=== PATIENT | female | born 1960 | race Caucasian/White ===

== ENCOUNTER 2018-08-21 17:39 | Emergency (ER) | payer OTHER, BC ==
[~2018-08-21] VITALS: Ht 165.1 cm; Wt 70.3 kg
[~2018-08-21 17:39] MED LIST: LEVO50TA PO; NFNEB10T PO; RABE20TA PO; SIMV40TA2 PO; SRTR100T PO
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
--- NOTE | 2018-08-21 18:36 | NUR ---
ICE PACKS ARE PLACE ON THE LOWER LEGS.
[2018-08-21 18:37] VITALS: BP 102/64
--- OUTSIDE RECORDS SUMMARY | 2018-08-22 00:13 | XMS REPORT | Continuity of Care Document ---
Author Author [facility] Organization [facility] Address Unknown Phone Unavailable Care Team Providers Care Manager Quality Systems Name Role Phone CASEY DAHL MD PP Insurance Providers Payer Name Policy Number Subscriber Name Relationship R [id number] Gracie Gonzalez 01 Self / Same As Patient Advance Directives Directive Response Recorded Date Advance Directives Y 12/18/12 7:07pm Health Care Power of Gas Pumper Y 12/18/12 7:07pm Organ Donor N 12/18/12 7:07pm Problems No Known Problems or Medical conditions. Allergies, Adverse Reactions, Alerts Allergen Type Severity Reaction Last Updated dexamethasone Allergy Intermediate SWELLING 10/19/09 Medications Medication Dose Units Route Sig Qty Days Sertraline HCl (Zoloft) 100 Mg PO DAILY Rabeprazole Sodium (Aciphex) 20 Mg PO Nebivolol Hcl (Bystolic) 1 Each PO DAILY Levothyroxine Sodium (Unithroid) 50 Mcg PO Simvastatin (Zocor) 1 Tab PO DAILY Response Recorded Date/Time Status not known Unknown Results Test Date Result Interp. Ref. Range BUN/Creatinine Ratio October 19, 2009 11:40pm 15 - Basophils # (Auto) October 19, 2009 11:40pm 0.0 10^3/uL N 0.0-0.1 Basophils (%) (Auto) October 19, 2009 11:40pm 0 % N 0-10 Blood Urea Nitrogen October 19, 2009 11:40pm 12 MG/DL N 7-18 Calcium Level October 19, 2009 11:40pm 9.3 MG/DL N 8.5-10.1 Carbon Dioxide Level October 19, 2009 11:40pm 26 MMOL/L N 21-32 Chloride Level October 19, 2009 11:40pm 101 MMOL/L N 101-110 Creatinine October 19, 2009 11:40pm 0.8 MG/DL N 0.6-1.3 Eosinophils # (Auto) October 19, 2009 11:40pm 0.0 10^3/uL N 0.0-0.3 Eosinophils (%) (Auto) October 19, 2009 11:40pm 0 % N 0-10 Glucose Level October 19, 2009 11:40pm 147 MG/DL H 70-126 Hematocrit October 19, 2009 11:40pm 41 % N 35-52 Hemoglobin October 19, 2009 11:40pm 14.3 G/DL N 11.5-16.0 Lymphocytes # (Auto) October 19, 2009 11:40pm 1.5 X 10^3 N 1.0-4.0 Lymphocytes (%) (Auto) October 19, 2009 11:40pm 12 % N 12-44 Mean Corpuscular Hemoglobin October 19, 2009 11:40pm 34 PG N 25-34 Mean Corpuscular Hemoglobin Concent October 19, 2009 11:40pm 35 G/DL N 32-36 Mean Corpuscular Volume October 19, 2009 11:40pm 97 FL N 80-99 Mean Platelet Volume October 19, 2009 11:40pm 9.3 FL N 7.4-10.4 Monocytes # (Auto) October 19, 2009 11:40pm 0.7 X 10^3 N 0.0-1.0 Monocytes (%) (Auto) October 19, 2009 11:40pm 6 % N 0-12 Neutrophils # (Auto) October 19, 2009 11:40pm 9.6 X 10^3 H 1.8-7.8 Neutrophils (%) (Auto) October 19, 2009 11:40pm 81 % H 42-75 Platelet Count October 19, 2009 11:40pm 265 10^3/uL N 130-400 Potassium Level October 19, 2009 11:40pm 3.3 MMOL/L L 3.6-5.0 Red Blood Count October 19, 2009 11:40pm 4.22 10^6/uL L 4.35-5.85 Red Cell Distribution Width October 19, 2009 11:40pm 12.8 % N 10.0-14.5 Sodium Level October 19, 2009 11:40pm 136 MMOL/L N 135-145 Urine Bacteria October 20, 2009 12:28am MODERATE H - Urine Bilirubin October 20, 2009 12:28am NEGATIVE - Urine Casts October 20, 2009 12:28am NONE - Urine Clarity October 20, 2009 12:28am SLIGHTLY CLOUDY - Urine Color October 20, 2009 12:28am YELLOW - Urine Crystals October 20, 2009 12:28am NONE - Urine Culture Indicated October 20, 2009 12:28am YES - Urine Glucose (UA) October 20, 2009 12:28am NEGATIVE - Urine Ketones October 20, 2009 12:28am 3+ H - Urine Leukocyte Esterase October 20, 2009 12:28am 2+ H - Urine Mucus October 20, 2009 12:28am LARGE H - Urine Nitrite October 20, 2009 12:28am NEGATIVE - Urine Protein October 20, 2009 12:28am TRACE - Urine RBC October 20, 2009 12:28am RARE /HPF - Urine Specific [place] October 20, 2009 12:28am 1.025 H - Urine Squamous Epithelial Cells October 20, 2009 12:28am 5-10 - Urine Urobilinogen October 20, 2009 12:28am NORMAL MG/DL - Urine WBC October 20, 2009 12:28am 10-25 /HPF H - Urine pH October 20, 2009 12:28am 5.0 - White Blood Count October 19, 2009 11:40pm 11.8 10^3/uL H 4.3-11.0 Estimat Glomerular Filtration Rate October 19, 2009 11:40pm > 60 - Urine RBC (Auto) October 20, 2009 12:28am NEGATIVE - Procedures Procedure Code Date Urine Culture 10/20/09 Encounters Encounter Location Date/Time Departed Emergency Room [facility] 10/19/09 10:25pm
--- OUTSIDE RECORDS SUMMARY | 2018-08-22 00:13 | XMS REPORT | Continuity of Care Document ---
Author Organization Unknown Address Unknown Allergies Active Description Code Type Severity Reaction Onset Reported/Identified Relationship to Patient Clinical Status Yes DECADRON UNKNOWN UNKNOWN Medications There is no data. Problems Date Dx Coded Attending Type Code Diagnosis Diagnosed By 12/30/2016 CONCETTA MUÑOZ 454.8 VARICOSE VEINS OF THE LOWER EXTREMITIES, WITH OTHER COMPLICATIONS 12/30/2016 CONCETTA MUÑOZ I83.891 VARICOSE VEINS OF RIGHT LOWER EXTREMITIES WITH OTHER COMPLICATIONS 12/30/2016 CONCETTA MUÑOZ 454.8 VARICOSE VEINS OF THE LOWER EXTREMITIES, WITH OTHER COMPLICATIONS 12/30/2016 CONCETTA MUÑOZ I83.891 VARICOSE VEINS OF RIGHT LOWER EXTREMITIES WITH OTHER COMPLICATIONS 03/02/2017 CONCETTA MUÑOZ W 244.9 UNSPECIFIED HYPOTHYROIDISM 03/02/2017 ROSCOE MUÑOZHEL W E03.9 HYPOTHYROIDISM, UNSPECIFIED 03/02/2017 WANDA CONCETTA W 244.9 UNSPECIFIED HYPOTHYROIDISM 03/02/2017 WANDA CONCETTA W E03.9 HYPOTHYROIDISM, UNSPECIFIED 11/27/2017 ROSCOE MUÑOZHEL W 401.0 MALIGNANT ESSENTIAL HYPERTENSION 11/27/2017 ROSCOE MUÑOZHEL W I10 ESSENTIAL (PRIMARY) HYPERTENSION 11/27/2017 CONCETTA MUÑOZ W 272.4 OTHER AND UNSPECIFIED HYPERLIPIDEMIA 11/27/2017 CONCETTA MUÑOZ W 401.0 MALIGNANT ESSENTIAL HYPERTENSION 11/27/2017 ROSCOE MUÑOZHEL W E78.5 HYPERLIPIDEMIA, UNSPECIFIED 11/27/2017 MUÑOZ, CONCETTA W I10 ESSENTIAL (PRIMARY) HYPERTENSION 11/27/2017 CONCETTA MUÑOZ W 272.4 OTHER AND UNSPECIFIED HYPERLIPIDEMIA 11/27/2017 CONCETTA MUÑOZ W 401.0 MALIGNANT ESSENTIAL HYPERTENSION 11/27/2017 WANDA CONCETTA W E78.5 HYPERLIPIDEMIA, UNSPECIFIED 11/27/2017 ROSCOE MUÑOZHEL W I10 ESSENTIAL (PRIMARY) HYPERTENSION 04/05/2018 CONCETTA MUÑOZ W 244.9 UNSPECIFIED HYPOTHYROIDISM 04/05/2018 CONCETTA MUÑOZ 272.4 OTHER AND UNSPECIFIED HYPERLIPIDEMIA 04/05/2018 CONCETTA MUÑOZ E03.9 HYPOTHYROIDISM, UNSPECIFIED 04/05/2018 CONCETTA MUÑOZ E78.5 HYPERLIPIDEMIA, UNSPECIFIED 04/05/2018 CONCETTA MUÑOZ W 244.9 UNSPECIFIED HYPOTHYROIDISM 04/05/2018 CONCETTA UMÑOZ 272.4 OTHER AND UNSPECIFIED HYPERLIPIDEMIA 04/05/2018 CONCETTA MUÑOZ E03.9 HYPOTHYROIDISM, UNSPECIFIED 04/05/2018 CONCETTA MUÑOZ E78.5 HYPERLIPIDEMIA, UNSPECIFIED Procedures There is no data. Results Test Result Range Comprehensive Metabolic Panel - 09/13/16 17:15 Albumin 4.2 g/dL 3.6-5.1 ALP 124 U/L 35-130 ALT 17 U/L 6-45 Anion Gap 15 6-14 AST 19 U/L 2-40 BUN 16 mg/dL 5-25 Calcium 9.5 mg/dL 8.3-10.4 Chloride 104 mmol/L 95-114 CO2 22 mEq/L 22-33 Creat 0.76 mg/dL 0.50-1.50 eGFR 78 mL/min/1.73m2 >59 Globulin 2.2 g/dL 2.3-3.5 Glucose 107 mg/dL 70-110 Osmo 285 280-295 Potassium 4.3 mmol/L 3.5-5.3 Sodium 137 mmol/L 134-148 TBil 0.3 mg/dL 0.2-1.2 TP 6.4 g/dL 6.0-8.3 Lipid Panel - 09/13/16 17:15 C/HDL 3.9 3.7-6.7 Cholesterol 208 mg/dL 100-240 HDL 53 mg/dL 30-85 LDL-Calculated 131 mg/dL 0-100 Trig 122 mg/dL 35-160 VLDL 24 mg/dL 0-42 Thyroid Stimulating Hormone - 03/01/17 15:25 TSH 1.51 mIU/mL 0.32-5.00 Lipid Panel - 11/27/17 15:41 C/HDL 7.1 3.7-6.7 Cholesterol 340 mg/dL 100-240 HDL 48 mg/dL 30-85 LDL-Calculated 274 mg/dL 0-100 Trig 91 mg/dL 35-160 VLDL 18 mg/dL 0-42 Thyroid Stimulating Hormone - 04/05/18 17:29 TSH 1.34 mIU/mL 0.32-5.00 Comprehensive Metabolic Panel - 08/06/18 13:08 Albumin 4.1 g/dL 3.6-5.1 ALP 140 U/L 35-130 ALT 15 U/L 6-45 Anion Gap 14 6-14 AST 17 U/L 2-40 BUN 10 mg/dL 5-25 Calcium 9.8 mg/dL 8.3-10.4 Chloride 108 mmol/L 95-114 CO2 23 mEq/L 22-33 Creat 0.78 mg/dL 0.50-1.50 eGFR 75 mL/min/1.73m2 >59 Globulin 2.0 g/dL 2.3-3.5 Glucose 99 mg/dL 70-110 Osmo 290 280-295 Potassium 4.2 mmol/L 3.5-5.3 Sodium 141 mmol/L 134-148 TBil 0.3 mg/dL 0.2-1.2 TP 6.1 g/dL 6.0-8.3 Encounters ACCT No. Visit Date/Time Discharge Status Pt. Type Provider Facility Loc./Unit Complaint [id number] 08/06/2018 10:27:00 08/06/2018 23:59:00 DIS Outpatient Juani Damon [id number] 04/05/2018 17:27:00 04/05/2018 23:59:00 DIS Outpatient CONCETTA MUÑOZ [id number] 11/27/2017 15:41:00 11/27/2017 23:59:00 DIS Outpatient CONCETTA MUÑOZ [id number] 03/02/2017 15:25:00 03/02/2017 23:59:00 DIS Outpatient CONCETTA MUÑOZ [id number] 12/30/2016 14:37:00 12/30/2016 23:59:00 DIS Outpatient CONCETTA MUÑOZ [id number] 09/13/2016 19:34:00 09/13/2016 23:59:00 DIS Outpatient CONCETTA MUÑOZ [id number] 02/06/2013 09:57:00 02/06/2013 23:59:59 CLS Outpatient [id number] 01/14/2013 13:33:00 01/14/2013 23:59:59 CLS Outpatient [id number] 12/18/2012 14:35:00 12/18/2012 19:27:00 DIS Outpatient [id number] 08/06/2018 10:27:00 Document Registration
== END 2018-08-21 18:39 | disposition home or self-care (01) ==
LOC: EDUNIT# 17:39 → ER 17:40
DX: S80.11XA Contusion of right lower leg, initial encounter (principal); S80.12XA Contusion of left lower leg, initial encounter; Z88.8 Allergy status to other drugs, medicaments and biological substances; V49.40XA Driver injured in collision with unspecified motor vehicles in traffic accident, initial encounter
CPT/HCPCS: 99283

== ENCOUNTER 2018-08-28 16:26 | Emergency (ER) | payer OTHER, BC ==
[~2018-08-28] VITALS: Ht 165.1 cm; Wt 72.6 kg
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
[2018-08-28 18:30] VITALS: BP 106/70
== END 2018-08-28 18:30 | disposition home or self-care (01) ==
LOC: EDUNIT# 16:26 → ER 16:28
DX: M25.571 Pain in right ankle and joints of right foot (principal); E78.00 Pure hypercholesterolemia, unspecified; I10 Essential (primary) hypertension; E03.9 Hypothyroidism, unspecified; F17.210 Nicotine dependence, cigarettes, uncomplicated; Z88.8 Allergy status to other drugs, medicaments and biological substances; Z98.890 Other specified postprocedural states; V89.2XXA Person injured in unspecified motor-vehicle accident, traffic, initial encounter
CPT/HCPCS: 73610; 99283

== ENCOUNTER 2021-09-22 15:37 | Emergency (ER) | payer BC, OTHER ==
[~2021-09-22] VITALS: Ht 165 cm; Wt 63.0 kg
[2021-09-22 15:55] VITALS: BP_SYST 112; BP_SYST 94; BP_SYST 95; BP_DIAS 64; BP_DIAS 65; BP_DIAS 69
--- NOTE | 2021-09-22 15:59 | ED Syncope ---
General Chief Complaint: Dizziness/Syncope Stated Complaint: WEAKNESS Source of Information: Patient Exam Limitations: No Limitations History of Present Illness Date Seen by Provider: Sep 22, 2021 Time Seen by Provider: 15:36 Initial Comments Patient to the ER by EMS from home where her roommate said that she had 4 episodes of passing out and falling. She does not take blood thinner. She is had nausea vomiting diarrhea for the past 3 to 4 days. No runny nose cough shortness of air chest pain. She recently finished a course of valacyclovir for right inguinal zoster. She says that is getting better. She did not do steroids. She has had 2 COVID vaccines both Moderna. Allergies and Home Medications Allergies Coded Allergies: dexamethasone (Unverified Allergy, Intermediate, SWELLING, 10/19/09) Patient Home Medication List Home Medication List Reviewed: Yes Levothyroxine Sodium (Unithroid) 50 Mcg Tablet, 50 MCG PO, (Reported) Entered as Reported by: ANTHONY GARZA on 10/19/092232 Nebivolol Hcl (Bystolic) 10 Mg Tablet, 1 EACH PO DAILY, (Reported) Entered as Reported by: ANTHONY GARZA on 10/19/092232 Rabeprazole Sodium (Aciphex) 20 Mg Tablet.dr, 20 MG PO, (Reported) Entered as Reported by: ANTHONY GARZA on 10/19/092232 Sertraline Hcl (Zoloft) 100 Mg Tab, 100 MG PO DAILY, (Reported) Entered as Reported by: ANTHONY GARZA on 10/19/092232 Simvastatin (Zocor) 40 Mg Tablet, 1 TAB PO DAILY, (Reported) Entered as Reported by: ANTHONY GARZA on 10/19/092232 Review of Systems Constitutional: No chills, No diaphoresis EENTM: No ear discharge, No ear pain, No blurred vision Respiratory: No cough, No short of breath Cardiovascular: No chest pain, No edema Gastrointestinal: see HPI; No constipation; diarrhea, loss of appetite, nausea, vomiting Genitourinary: No discharge, No dysuria Musculoskeletal: No back pain, No joint pain Skin: see HPI; No change in color; lesions All Other Systems Reviewed Negative Unless Noted: Yes Past Opvimhr-Bkagzj-Ghxodx Hx Patient Social History Tobacco Use?: Yes Tobacco type used: Cigarettes Smoking Status: Current Everyday Smoker (Three-quarter pack per day) Use of E-Cig and/or Vaping dev: No Substance use?: No Alcohol Use?: No Seasonal Allergies Seasonal Allergies: No Past Medical History Surgeries: Yes (oral) Gallbladder, Orthopedic Respiratory: No Cardiac: Yes High Cholesterol, Hypertension Neurological: No Genitourinary: No Gastrointestinal: No Musculoskeletal: No Endocrine: Yes Hypothyroidsim HEENT: Yes Cataract, Glaucoma Cancer: No Psychosocial: No Physical Exam Vital Signs Vital Signs - First Documented 09/22/21 15:40 Temp 36.6 Pulse 86 Resp 18 B/P (MAP) 101/71 (81) Pulse Ox 94 Capillary Refill : Height, Weight, BMI Height: 5'5.00" Weight: 160lbs. oz. 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 Norm as Tested Cranial Nerves: Normal Hearing, Normal Speech, PERRL Motor/Sensory: No Motor Deficit, No Sensory Deficit Skin: Normal Color, Warm/Dry Progress/Results/Core Measures Results/Orders Lab Results Laboratory Tests Test 09/22/21 15:48 09/22/21 16:00 Range/Units White Blood Count 12.6 H 4.3-11.0 10^3/uL Red Blood Count 4.76 3.80-5.11 10^6/uL Hemoglobin 14.3 11.5-16.0 g/dL Hematocrit 42 35-52 % Mean Corpuscular Volume 89 80-99 fL Mean Corpuscular Hemoglobin 30 25-34 pg Mean Corpuscular Hemoglobin Concent 34 32-36 g/dL Red Cell Distribution Width 14.3 10.0-14.5 % Platelet Count 342 130-400 10^3/uL Mean Platelet Volume 9.3 9.0-12.2 fL Immature Granulocyte % (Auto) 0 % Neutrophils (%) (Auto) 47 42-75 % Lymphocytes (%) (Auto) 40 12-44 % Monocytes (%) (Auto) 11 0-12 % Eosinophils (%) (Auto) 1 0-10 % Basophils (%) (Auto) 1 0-10 % Neutrophils # (Auto) 6.0 1.8-7.8 10^3/uL Lymphocytes # (Auto) 5.1 H 1.0-4.0 10^3/uL Monocytes # (Auto) 1.4 H 0.0-1.0 10^3/uL Eosinophils # (Auto) 0.1 0.0-0.3 10^3/uL Basophils # (Auto) 0.1 0.0-0.1 10^3/uL Immature Granulocyte # (Auto) 0.0 0.0-0.1 10^3/uL Sodium Level 135 135-145 MMOL/L Potassium Level 3.1 L 3.6-5.0 MMOL/L Chloride Level 101 98-107 MMOL/L Carbon Dioxide Level 24 21-32 MMOL/L Anion Gap 10 5-14 MMOL/L Blood Urea Nitrogen 13 7-18 MG/DL Creatinine 0.87 0.60-1.30 MG/DL Estimat Glomerular Filtration Rate 75 BUN/Creatinine Ratio 15 Glucose Level 101 70-105 MG/DL Calcium Level 8.6 8.5-10.1 MG/DL Corrected Calcium 8.8 8.5-10.1 MG/DL Magnesium Level 1.6 1.6-2.4 MG/DL Total Bilirubin 0.6 0.1-1.0 MG/DL Aspartate Amino Transf (AST/SGOT) 14 5-34 U/L Alanine Aminotransferase (ALT/SGPT) 11 0-55 U/L Alkaline Phosphatase 85 40-136 U/L Troponin I < 0.028 <0.028 NG/ML C-Reactive Protein High Sensitivity 0.16 0.00-0.50 MG/DL Total Protein 6.0 L 6.4-8.2 GM/DL Albumin 3.8 3.2-4.5 GM/DL SARS-CoV-2 RNA (RT-PCR) Not Detected Not Detecte Urine Color YELLOW Urine Clarity CLEAR Urine pH 7.0 5-9 Urine Specific [place] <=1.005 1.016-1.022 Urine Protein NEGATIVE NEGATIVE Urine Glucose (UA) NEGATIVE NEGATIVE Urine Ketones NEGATIVE NEGATIVE Urine Nitrite NEGATIVE NEGATIVE Urine Bilirubin NEGATIVE NEGATIVE Urine Urobilinogen 0.2 < = 1.0 MG/DL Urine Leukocyte Esterase 1+ H NEGATIVE Urine RBC (Auto) TRACE-I H NEGATIVE Urine RBC NONE /HPF Urine WBC 25-50 H /HPF Urine Squamous Epithelial Cells 5-10 /HPF Urine Crystals NONE /LPF Urine Bacteria MODERATE H /HPF Urine Casts NONE /LPF Urine Mucus NEGATIVE /LPF Urine Culture Indicated YES My Orders Orders - SHARYN DAVIS Covid 19 Inhouse Test (09/22/21 15:48) Cbc With Automated Diff (09/22/21 15:48) Comprehensive Metabolic Panel (09/22/21 15:48) Hs C Reactive Protein (09/22/21 15:48) Continuous Ekg Monitoring (09/22/21 15:48) Ekg Tracing (09/22/21 15:48) Ua Culture If Indicated (09/22/21 15:52) Troponin I Marleni (09/22/21 15:52) Ed Iv/Invasive Line Start (09/22/21 15:52) Orthostatic Vital Signs (Adult (09/22/21 15:52) Chest 1 View, Ap/Pa Only (09/22/21 15:52) Magnesium (09/22/21 15:52) Ct Head/Cervical Spine Wo (09/22/21 16:00) Urine Culture (09/22/21 16:00) Ed Iv/Invasive Line Start (09/22/21 17:13) Ns Iv 1000 Ml (Sodium Chloride 0.9%) (09/22/21 17:15) Vital Signs/I&O 09/22/21 09/22/21 15:40 15:55 Temp 36.6 Pulse 86 78 84 94 Resp 18 B/P (MAP) 101/71 (81) 112/69 (83) 95/65 (75) 94/64 (74) Pulse Ox 94 Progress Progress Note #1: Time: 15:55 Progress Note Swab for COVID, EKG, orthostats, chest x-ray, labs including troponin for syncopal work-up. No history of coronary disease. We will let her continue to get the liter of fluids. Her blood pressure on arrival is soft 101 systolic. She is not tachycardic or febrile. Otherwise aseptic vital signs. Suspect dehydration from likely a viral gastroenteritis/colitis. Soft nonsurgical abdomen on exam. Progress Note #2: Time: 17:45 Progress Note Orthostats were borderline when she arrived. After her fluids she is feeling significantly better ready to go home. I suspect that her GI gut bug is the source of her dehydration and syncope. Return precautions given. Initial ECG Impression Date: Sep 22, 2021 Initial ECG Impression Time: 15:54 Initial ECG Rate: 78 Initial ECG Rhythm: Normal Sinus Initial ECG Intervals: Normal Initial ECG Impression: Normal Comment Normal sinus rhythm without clinically relevant ST elevation or depression Diagnostic Imaging Diagonstic Imaging: Xray Plain Films/CT/US/NM/MRI: chest Comments [facility], [place] NAME: DURANT,GRACIE A MED REC#: [id number] PT STATUS: REG ER : 1960 PHYSICIAN: SHARYN DAVIS MD ADMIT DATE: 09/22/21/ER Signed Date of Exam:09/22/21 CHEST 1 VIEW, AP/PA ONLY CHEST 1 VIEW, AP/PA ONLY Indication: Syncope Comparison: None available. Findings: Calcified right hilar and upper lobe nodules are compatible with old granulomatous infection. No consolidation. Please note that the posterior lower lobes are poorly evaluated by portable radiography. No pleural effusion or pneumothorax. Normal cardiomediastinal silhouette. Impression: 1. No acute cardiopulmonary process by portable radiography. 2. Old granulomatous infection. Dictated by: Dictated on workstation # [id number] Dict: 09/22/21 1644 Trans: 09/22/21 1645 [facility] [id number] Interpreted by: BROOKLYNN CARBALLO MD Electronically signed by: BROOKLYNN CARBALLO MD 09/22/21 1645 Reviewed: Reviewed by Me Diagonstic Imaging: CT Plain Films/CT/US/NM/MRI: c-spine, head Comments [facility] [place] [place] NAME: DURANT,GRACIE A MED REC#: [id number] PT STATUS: REG ER : 1960 PHYSICIAN: SHARYN DAVIS MD ADMIT DATE: 09/22/21/ER Draft Date of Exam:09/22/21 CT HEAD/CERVICAL SPINE WO PROCEDURE: CT head and CT cervical spine without contrast. TECHNIQUE: Multiple contiguous axial images were obtained through the brain and cervical spine without the use of intravenous contrast. Sagittal and coronal reformations through the cervical spine were then performed. Auto Exposure Controls were utilized during the CT exam to meet ALARA standards for radiation dose reduction. INDICATION: Head and neck pain after injury. COMPARISON: None available. FINDINGS: HEAD: No intracranial hyperdense hemorrhage or space-occupying mass. No hydrocephalus or midline shift. Melgar-white matter differentiation is well preserved. Periventricular hypoattenuation is most compatible with chronic microvascular ischemic change. No skull fracture. The paranasal sinuses and mastoid air cells are clear. CERVICAL SPINE: No acute fracture or traumatic malalignment. No high-grade spinal canal stenosis. Multilevel facet osteoarthritis contributes to varying degrees of wyog-is-kowmiwyz neuroforaminal stenosis, greatest at C5-C6. Lung apices are clear. No cervical lymphadenopathy. IMPRESSION: 1. No acute intracranial process by CT. 2. No fracture or traumatic malalignment in the cervical spine. Dictated on workstation # [id number] Dict: 09/22/21 1645 Trans: 09/22/21 1650 [id number] Interpreted by: BROOKLYNN CARBALLO MD Electronically signed by: Reviewed: Reviewed by Me Departure Impression Primary Impression: Syncope Qualified Codes: R55 - Syncope and collapse Additional Impressions: Dehydration Gastroenteritis and colitis, viral Disposition: 01 HOME, SELF-CARE Condition: Improved Departure-Patient Inst. Decision time for Depature: 17:46 Referrals: CONCETTA MUÑOZ MD (PCP/Family) Primary Care Physician Patient Instructions: Dehydration, Adult ED, Viral Gastroenteritis, Adult (DC) Add. Discharge Instructions: Drink plenty of fluids. Sports drinks are encouraged such as Gatorade or Powerade. Ondansetron 1 tablet every 6 hours under the tongue as necessary for nausea or vomiting. Imodium 2 tablets followed by 1 tablet every 4 hours afterwards that you are s till having loose, watery stools. Return to the ER for significantly worsening symptoms. Follow-up with your primary care doctor if you have nausea vomiting or diarrhea lasting more than 10 days. All discharge instructions reviewed with patient and/or family. Voiced understanding. Scripts Ondansetron (Ondansetron Odt) 4 Mg Tab.rapdis 4 MG PO Q6H PRN for NAUSEA/VOMITING, #8 TAB 0 Refills Prov: SHARYN DAVIS 09/22/21 SHARYN DAVIS Sep 22, 2021 15:59
[2021-09-22 16:02] LABS: BASOPHILS # (AUTO) 0.1 10^3/uL (0.0-0.1); BASOPHILS % (AUTO) 1 % (0-10); EOSINOPHILS # (AUTO) 0.1 10^3/uL (0.0-0.3); EOSINOPHILS % (AUTO) 1 % (0-10); HEMATOCRIT 42 % (35-52); HEMOGLOBIN 14.3 g/dL (11.5-16.0); LYMPHOCYTES # (AUTO) 5.1 10^3/uL (1.0-4.0); LYMPHOCYTES % (AUTO) 40 % (12-44); MEAN CORPUSCULAR HEMOGLOBIN 30 pg (25-34); MEAN CORPUSCULAR HGB CONC 34 g/dL (32-36); MEAN CORPUSCULAR VOLUME 89 fL (80-99); MEAN PLATELET VOLUME 9.3 fL (9.0-12.2); MONOCYTES # (AUTO) 1.4 10^3/uL (0.0-1.0); MONOCYTES % (AUTO) 11 % (0-12); NEUTROPHILS % (AUTO) 47 % (42-75); PLATELET COUNT 342 10^3/uL (130-400); WHITE BLOOD COUNT 12.6 10^3/uL (4.3-11.0)
[2021-09-22 16:09] LABS: BILIRUBIN,URINE NEGATIVE (NEGATIVE); CLARITY,URINE CLEAR; COLOR,URINE YELLOW; GLUCOSE, URINE (UA) NEGATIVE (NEGATIVE); KETONES,URINE NEGATIVE (NEGATIVE); LEUKOCYTE ESTERASE ,URINE 1+ (NEGATIVE); NITRITE,URINE NEGATIVE (NEGATIVE); PROTEIN,URINE NEGATIVE (NEGATIVE)
[2021-09-22 16:17] LABS: ALBUMIN 3.8 GM/DL (3.2-4.5); CHLORIDE 101 MMOL/L (98-107); POTASSIUM 3.1 MMOL/L (3.6-5.0); SODIUM 135 MMOL/L (135-145)
[2021-09-22 16:19] LABS: CALCIUM 8.6 MG/DL (8.5-10.1)
[2021-09-22 16:20] LABS: BACTERIA,URINE MODERATE /HPF; WBC,URINE 25-50 /HPF
[2021-09-22 16:20] LABS: GLUCOSE 101 MG/DL (70-105)
[2021-09-22 16:21] LABS: BILIRUBIN,TOTAL 0.6 MG/DL (0.1-1.0); CARBON DIOXIDE 24 MMOL/L (21-32)
[2021-09-22 16:23] LABS: ALKALINE PHOSPHATASE 85 U/L (40-136); CREATININE SERUM 0.87 MG/DL (0.60-1.30); GFR ESTIMATED 75
[2021-09-22 16:24] LABS: BUN/CREATININE RATIO 15
[2021-09-22 16:26] LABS: ALANINE AMINOTRANSFERASE 11 U/L (0-55)
[2021-09-22 16:27] LABS: MAGNESIUM 1.6 MG/DL (1.6-2.4)
--- NOTE | 2021-09-22 16:46 | Diagnostic Imaging Report ---
CHEST 1 VIEW, AP/PA ONLY Indication: Syncope Comparison: None available. Findings: Calcified right hilar and upper lobe nodules are compatible with old granulomatous infection. No consolidation. Please note that the posterior lower lobes are poorly evaluated by portable radiography. No pleural effusion or pneumothorax. Normal cardiomediastinal silhouette. Impression: 1. No acute cardiopulmonary process by portable radiography. 2. Old granulomatous infection. Dictated by: Dictated on workstation # [id number]
--- NOTE | 2021-09-22 16:51 | Diagnostic Imaging Report ---
PROCEDURE: CT head and CT cervical spine without contrast. TECHNIQUE: Multiple contiguous axial images were obtained through the brain and cervical spine without the use of intravenous contrast. Sagittal and coronal reformations through the cervical spine were then performed. Auto Exposure Controls were utilized during the CT exam to meet ALARA standards for radiation dose reduction. INDICATION: Head and neck pain after injury. COMPARISON: None available. FINDINGS: HEAD: No intracranial hyperdense hemorrhage or space-occupying mass. No hydrocephalus or midline shift. Melgar-white matter differentiation is well preserved. Periventricular hypoattenuation is most compatible with chronic microvascular ischemic change. No skull fracture. The paranasal sinuses and mastoid air cells are clear. CERVICAL SPINE: No acute fracture or traumatic malalignment. No high-grade spinal canal stenosis. Multilevel facet osteoarthritis contributes to varying degrees of bdwo-mb-cubcdhtd neuroforaminal stenosis, greatest at C5-C6. Lung apices are clear. No cervical lymphadenopathy. IMPRESSION: 1. No acute intracranial process by CT. 2. No fracture or traumatic malalignment in the cervical spine. Dictated by: Dictated on workstation # [id number]
[2021-09-22] MEDS ORDERED: NS IV 1000 ML 1,000 ML IV SCH (17:15)
[2021-09-22] MEDS ORDERED: ONDA4TAB11 PO (17:47)
== END 2021-09-22 18:00 | disposition home or self-care (01) ==
LOC: EDUNIT# 15:37 → ER 15:38
DX: A08.4 Viral intestinal infection, unspecified (principal); R55 Syncope and collapse; F17.210 Nicotine dependence, cigarettes, uncomplicated; Z20.822 Contact with and (suspected) exposure to COVID-19
CPT/HCPCS: 36415; 70450; 71045; 72125; 80053; 81000; 83735; 84484; 85025; 86141; 87088; 87636; 93005

== ENCOUNTER 2021-10-01 23:59 | Inpatient (IN) | payer BC ==
[~2021-10-01] VITALS: Ht 165.1 cm; Wt 66.3 kg
[~2021-10-01 23:59] MED LIST changes: +ONDA4TAB11 PO
[2021-10-02] MEDS ORDERED: LACTATED RINGERS 1,000 ML IV ONE ×3 (00:30→05:15)
[2021-10-02] MEDS ORDERED: ONDANSETRON 4 MG/2 ML (SDV) Z0FRAN IVP ONE (00:30)
[2021-10-02 00:50] LABS: BILIRUBIN,URINE 1+ (NEGATIVE); CLARITY,URINE CLEAR; COLOR,URINE YELLOW; GLUCOSE, URINE (UA) NEGATIVE (NEGATIVE); KETONES,URINE NEGATIVE (NEGATIVE); LEUKOCYTE ESTERASE ,URINE 2+ (NEGATIVE); NITRITE,URINE NEGATIVE (NEGATIVE); PROTEIN,URINE 1+ (NEGATIVE)
[2021-10-02 01:08] LABS: BACTERIA,URINE MODERATE /HPF; WBC,URINE 25-50 /HPF
[2021-10-02 01:09] LABS: HYALINE CASTS, URINE 0-2 /LPF
--- NOTE | 2021-10-02 01:18 | ED General ---
General Chief Complaint: General Problems/Pain Stated Complaint: LETHARGY,N/V Nursing Triage Note: Pt arrival to ER with complaint of weakness, and abdominal pain x10 days, and N/V x3 days. Pt states that she was seen here last monday for the weakness and was given fluids and left feeling much better. PT states that it quickly returned and now she is worse. Pt states that she hasn't had BM in 10 days. Source of Information: Patient History of Present Illness Date Seen by Provider: Oct 02, 2021 Time Seen by Provider: 00:18 Initial Comments PT ARRIVES VIA POV FROM HOME--WANTS WHEELCHAIR ON ARRIVAL STATES SHE HAS NOT FELT GOOD FOR THE LAST 3 WEEKS STATES IT STARTED WITH SHINGLES--FROM TAILBONE AREA AROUND TO RIGHT GROIN AREA--WAS SEEN AT [facility] AND PRESCRIBED VALTREX--NO OTHER MEDICATIONS STATES THOSE SYMPTOMS HAVE ESSENTIALLY RESOLVED, HAS A FEW RESIDUAL SCABBED SORES TO HER RIGHT BUTTOCK/TAILBONE AREA. THEN LAST WEEK SHE BEGAN HAVING NAUSEA/VOMITING/DIARRHEA AND HAS HAD PROGRESSIVE LETHARGY AND GENERALIZED WEAKNESS SINCE THEN STAES SHE HAS VOMITED X 3 TODAY, NO DIARRHEA TODAY. STATES SHE HAS NOT HAD A BM SINCE LAST Monday09/23/21 NO ABDOMINAL PAIN STATES SHE IS STILL VOIDING BUT NOT VERY MUCH NO KNOWN FEVER NO RESPIRATORY SYMPTOMS NO CHEST PAIN NO URI SYMPTOMS OR SORE THROAT NO HEADACHE OR BODY ACHES NO LOSS OF TASTE OR SMELL STATES SHE HAS LOST 20 LBS IN THE LAST 3 WEEKS PT WAS SEEN HERE 09/22/21 FOR HAVING 4 SYNCOPAL EPISODES THAT DAY AND REPORTED NAUSEA/VOMITING/DIARRHEA AT THAT TIME COVID TEST WAS NEGATIVE AT THAT TIME, AND WORK UP WAS OTHERWISE NEGATIVE, AND DX WITH DEHYDRATION AND DISMISSED TO HOME PT HAS NOT ATTEMPTED TO FOLLOW UP WITH ANYONE SINCE THAT VISIT, AND STATES THAT SHE HAS CONTINUED TO GET WEAKER. HAD 1 COVID VACCINE--MODERNA--OVER A YEAR AGO. PCP: WAS DR. MUÑOZ AT [facility] FOR [facility]. HAS NOT ESTABLISHED WITH NEW THERE YET-DR. STEIN Allergies and Home Medications Allergies Coded Allergies: coconut (Verified Allergy, Severe, Anaphylaxis, 10/02/21) dexamethasone (Unverified Allergy, Intermediate, SWELLING, 10/02/21) Patient Home Medication List Home Medication List Reviewed: Yes Acyclovir (Acyclovir) 5 % Cream..g., 5 GM TP Q3HR Prescribed by: MICA BUENROSTRO on 10/02/211056 Last Action: New Order Levothyroxine Sodium (Levothyroxine Sodium) 50 Mcg Tablet, 50 MCG PO DAILY Prescribed by: MICA BUENROSTRO on 10/02/211056 Last Action: New Order Metoprolol Succinate (Metoprolol Succinate) 50 Mg Tab.er.24h, 50 MG PO DAILY Prescribed by: MICA BUENROSTRO on 10/02/211056 Last Action: New Order Montelukast Sodium (Singulair) 10 Mg Tablet, 10 MG PO DAILY PRN Prescribed by: MICA BUENROSTRO on 10/02/211056 Last Action: New Order Omeprazole (Omeprazole) 40 Mg Capsule.dr, 40 MG PO DAILY Prescribed by: MICA BUENROSTRO on 10/02/211056 Last Action: New Order Ondansetron (Ondansetron Odt) 4 Mg Tab.rapdis, 4 MG PO Q6H Prescribed by: MICA BUENROSTRO on 10/02/211056 Last Action: New Order Ropinirole HCl (Ropinirole HCl) 0.5 Mg Tablet, 0.5 MG PO HS Prescribed by: MICA BUENROSTRO on 10/02/211056 Last Action: New Order Rosuvastatin Calcium (Rosuvastatin Calcium) 20 Mg Tablet, 20 MG PO HS Prescribed by: MICA BUENROSTRO on 10/02/211056 Last Action: New Order Sertraline HCl (Sertraline HCl) 100 Mg Tablet, 100 MG PO DAILY Prescribed by: MICA BUENROSTRO on 10/02/211056 Last Action: New Order Tramadol HCl (Tramadol HCl) 50 Mg Tablet, 50 MG PO Q8H Prescribed by: MICA BUENROSTRO on 10/02/211057 Last Action: New Order Valacyclovir HCl (Valacyclovir) 1,000 Mg Tablet, 1,000 MG PO TID Prescribed by: MICA BUENROSTRO on 10/02/211056 Last Action: New Order Discontinued Medications Levothyroxine Sodium (Unithroid) 50 Mcg Tablet, 50 MCG PO, (Reported) Discontinued Reason: No Longer Taking Entered as Reported by: ANTHONY GARZA on 8/2/2232 Last Action: Discontinued Nebivolol Hcl (Bystolic) 10 Mg Tablet, 1 EACH PO DAILY, (Reported) Discontinued Reason: No Longer Taking Entered as Reported by: ANTHONY GARZA on 10/19/092232 Last Action: Discontinued Ondansetron (Ondansetron Odt) 4 Mg Tab.rapdis, 4 MG PO Q6H PRN for NAUSEA/VOMITING Discontinued Reason: No Longer Taking Prescribed by: SHARYN DAVIS on 09/22/211746 Last Action: Discontinued Rabeprazole Sodium (Aciphex) 20 Mg Tablet.dr, 20 MG PO, (Reported) Discontinued Reason: No Longer Taking Entered as Reported by: ANTHONY GARZA on 10/19/092232 Last Action: Discontinued Sertraline Hcl (Zoloft) 100 Mg Tab, 100 MG PO DAILY, (Reported) Discontinued Reason: No Longer Taking Entered as Reported by: ANTHONY GARZA on 10/19/092232 Last Action: Discontinued Simvastatin (Zocor) 40 Mg Tablet, 1 TAB PO DAILY, (Reported) Discontinued Reason: No Longer Taking Entered as Reported by: ANTHONY GARZA on 10/19/092232 Last Action: Discontinued Review of Systems Review of Systems Constitutional: see HPI, dizziness; No fever; malaise, weakness, weight loss (20 LBS IN LAST 3 WEEKS) EENTM: no symptoms reported Respiratory: no symptoms reported; No cough, No short of breath Cardiovascular: no symptoms reported; No chest pain Gastrointestinal: see HPI; No abdominal pain; diarrhea, loss of appetite, nausea, vomiting Genitourinary: see HPI, decreased output : No Musculoskeletal: no symptoms reported Skin: no symptoms reported Psychiatric/Neurological: No Symptoms Reported Hematologic/Lymphatic: No Symptoms Reported Immunological/Allergic: no symptoms reported Past Extrfwq-Hdhkem-Gpixbr Hx Patient Social History Tobacco Use?: Yes Tobacco type used: Cigarettes Smoking Status: Current Everyday Smoker Use of E-Cig and/or Vaping dev: No Substance use?: Yes Substance type: Marijuana Substance frequency: Couple times a week Alcohol Use?: No Pt feels they are or have been: No Immunizations Up To Date Influenza Vaccine Up-to-Date: Yes; Up-to-Date Second COVID19 Vaccination Monster: doesn't know date COVID19 Vaccine 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: Torri Seasonal Allergies Seasonal Allergies: No Past Medical History Surgeries: Yes (ORAL SURGERY) Gallbladder Respiratory: No Cardiac: Yes High Cholesterol, Hypertension 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 oz. 72.795550lh; 23.00 BMI Method:Stated General Appearance: No Apparent Distress, WD/WN, Other (GENERALIZED WEAKNESS, NEEDS WHEELCHAIR WITH SOME ASSISTANCE WITH TRANSFER. 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 NO SIGNS OF INFECTION . ), Other (SEVERAL SORES/SCARS/SCABS TO FOREARMS AND FACE. ) Progress/Results/Core Measures Suspected Sepsis SIRS Temperature: Pulse: 74 Respiratory Rate: 20 Laboratory Tests 10/02/21 01:25: White Blood Count 14.1H Blood Pressure 105 /67 Mean: 80 Laboratory Tests 10/02/21 01:25: Creatinine 0.83, Platelet Count 295, Total Bilirubin 0.4 Results/Orders Lab Results Laboratory Tests Test 10/02/21 00:28 10/02/21 00:35 10/02/21 01:25 Range/Units SARS-CoV-2 RNA (RT-PCR) Detected H Not Detecte Urine Color YELLOW Urine Clarity CLEAR Urine pH 6.0 5-9 Urine Specific [place] >=1.030 1.016-1.022 Urine Protein 1+ H NEGATIVE Urine Glucose (UA) NEGATIVE NEGATIVE Urine Ketones NEGATIVE NEGATIVE Urine Nitrite NEGATIVE NEGATIVE Urine Bilirubin 1+ H NEGATIVE Urine Urobilinogen 1.0 < = 1.0 MG/DL Urine Leukocyte Esterase 2+ H NEGATIVE Urine RBC (Auto) NEGATIVE NEGATIVE Urine RBC NONE /HPF Urine WBC 25-50 H /HPF Urine Squamous Epithelial Cells 2-5 /HPF Urine Crystals NONE /LPF Urine Bacteria MODERATE H /HPF Urine Casts PRESENT /LPF Urine Hyaline Casts 0-2 H /LPF Urine Mucus MODERATE H /LPF Urine Culture Indicated YES Urine Opiates Screen NEGATIVE NEGATIVE Urine Oxycodone Screen NEGATIVE NEGATIVE Urine Methadone Screen NEGATIVE NEGATIVE Urine Propoxyphene Screen NEGATIVE NEGATIVE Urine Barbiturates Screen NEGATIVE NEGATIVE Ur Tricyclic Antidepressants Screen NEGATIVE NEGATIVE Urine Phencyclidine Screen NEGATIVE NEGATIVE Urine Amphetamines Screen NEGATIVE NEGATIVE Urine Methamphetamines Screen NEGATIVE NEGATIVE Urine Benzodiazepines Screen POSITIVE H NEGATIVE Urine Cocaine Screen NEGATIVE NEGATIVE Urine Cannabinoids Screen POSITIVE H NEGATIVE White Blood Count 14.1 H 4.3-11.0 10^3/uL Red Blood Count 4.45 3.80-5.11 10^6/uL Hemoglobin 13.3 11.5-16.0 g/dL Hematocrit 41 35-52 % Mean Corpuscular Volume 91 80-99 fL Mean Corpuscular Hemoglobin 30 25-34 pg Mean Corpuscular Hemoglobin Concent 33 32-36 g/dL Red Cell Distribution Width 14.6 H 10.0-14.5 % Platelet Count 295 130-400 10^3/uL Mean Platelet Volume 9.6 9.0-12.2 fL Immature Granulocyte % (Auto) 0 % Neutrophils (%) (Auto) 66 42-75 % Lymphocytes (%) (Auto) 24 12-44 % Monocytes (%) (Auto) 9 0-12 % Eosinophils (%) (Auto) 0 0-10 % Basophils (%) (Auto) 0 0-10 % Neutrophils # (Auto) 9.3 H 1.8-7.8 10^3/uL Lymphocytes # (Auto) 3.4 1.0-4.0 10^3/uL Monocytes # (Auto) 1.3 H 0.0-1.0 10^3/uL Eosinophils # (Auto) 0.1 0.0-0.3 10^3/uL Basophils # (Auto) 0.1 0.0-0.1 10^3/uL Immature Granulocyte # (Auto) 0.1 0.0-0.1 10^3/uL Sodium Level 137 135-145 MMOL/L Potassium Level 3.4 L 3.6-5.0 MMOL/L Chloride Level 103 98-107 MMOL/L Carbon Dioxide Level 20 L 21-32 MMOL/L Anion Gap 14 5-14 MMOL/L Blood Urea Nitrogen 17 7-18 MG/DL Creatinine 0.83 0.60-1.30 MG/DL Estimat Glomerular Filtration Rate 79 BUN/Creatinine Ratio 20 Glucose Level 121 H 70-105 MG/DL Calcium Level 9.1 8.5-10.1 MG/DL Corrected Calcium 9.4 8.5-10.1 MG/DL Magnesium Level 1.8 1.6-2.4 MG/DL Total Bilirubin 0.4 0.1-1.0 MG/DL Aspartate Amino Transf (AST/SGOT) 17 5-34 U/L Alanine Aminotransferase (ALT/SGPT) 10 0-55 U/L Alkaline Phosphatase 73 40-136 U/L Total Protein 5.7 L 6.4-8.2 GM/DL Albumin 3.6 3.2-4.5 GM/DL Amylase Level 66 25-125 U/L My Orders Orders - DOUG SANTIZO DO Covid 19 Inhouse Test (10/02/21 00:19) Isolation Central Supply Req (10/02/21 00:19) Ed Iv/Invasive Line Start (10/02/21 00:20) Monitor-Rhythm Ecg Trace Only (10/02/21 00:20) Amylase (10/02/21 00:20) Cbc With Automated Diff (10/02/21 00:20) Comprehensive Metabolic Panel (10/02/21 00:20) Magnesium (10/02/21 00:20) Ua Culture If Indicated (10/02/21 00:20) Ed Iv/Invasive Line Start (10/02/21 00:20) Lactated Ringers (Lr 1000 Ml Iv Solution (10/02/21 00:30) Ondansetron Injection (Zofran Injectio (10/02/21 00:30) Urine Culture (10/02/21 00:35) Ceftriaxone 1 Gm Pre-Mix (Rocephin 1 Gm (10/02/21 01:30) Drug Screen Stat (Urine) (10/02/21 01:30) Ct Lyubov Chest/Noang Abd-Pelv W (10/02/21 02:06) Ed Iv/Invasive Line Start (10/02/21 02:51) Lactated Ringers (Lr 1000 Ml Iv Solution (10/02/21 03:00) Iohexol Injection (Omnipaque 350 Mg/Ml 1 (10/02/21 03:15) Sodium Chloride Flush (Catheter Flush Sy (10/02/21 03:15) Ns (Ivpb) (Sodium Chloride 0.9% Ivpb Bag (10/02/21 03:15) Ed Iv/Invasive Line Start (10/02/21 05:09) Lactated Ringers (Lr 1000 Ml Iv Solution (10/02/21 05:15) Medications Given in ED Vital Signs/I&O 10/02/21 00:15 Temp 36.7 Pulse 74 Resp 20 B/P (MAP) 105/67 (80) Pulse Ox 95 O2 Delivery Room Air Capillary Refill : Less Than 3 Seconds Blood Pressure Mean: 80 Progress Note : Progress Note PLACED IN ISOLATION ROOM PPE WORN AT ALL TIMES COVID TESTING DONE INITIAL BP'S IN 80'S SYSTOLIC. GIVEN IV FLUIDS X 3 LITERS AND BP>100 SYSTOLIC AT TIME OF ADMIT. GIVEN ROCEPHIN FOR UTI AND ATELECTASIS/INFILTRATE IN RIGHT BASE NO DETERIORATION IN PT'S CONDITION DURING ER STAY Diagnostic Imaging Comments CT ANGIOGRAM OF CHEST / ABDOMEN-PELVIS--PER [facility] VIA FAX AT 0515 -INCREASED DENSITY IN RLL, ATELECTASIS VS PNEUMONIA, NO DEFINITE PULMONARY CONSOLIDATION -11.8 X 10.2 CM SEPTATED MIXED SOLID AND CYSTIC PELVIC MASS, HIGHLY SUSPICIOUS FOR OVARIAN NEOPLASM. LIKELY ARISING FROM LEFT OVARY. -BILIARY DILATION, LIKELY DUE TO PRIOR CHOLECYSTECTOMY -NO OTHER ACUTE PROCESS Reviewed: Reviewed by Me Departure Communication (Admissions) [id number]--SPOKE WITH DR. GROVES, HOSPITALIST, ACCEPTS PT FOR ADMIT Impression Primary Impression: COVID-19 virus infection Additional Impressions: Dehydration Intractable nausea and vomiting Mass of left ovary Weight loss RECENT SHINGLES Urinary tract infection Disposition: ADMITTED INPATIENT Condition: Improved Admissions Decision to Admit Reason: Admit from ER (General) Decision to Admit/Date: Oct 02, 2021 Time/Decision to Admit Time: 05:30 Departure-Patient Inst. Referrals: NO,LOCAL PHYSICIAN (PCP/Family) Primary Care Physician Scripts Tramadol HCl (Tramadol HCl) 50 Mg Tablet 50 MG PO Q8H for 7 Days, TAB Prov: JOHNNY GROVES MD 10/02/21 Ropinirole HCl (Ropinirole HCl) 0.5 Mg Tablet 0.5 MG PO HS for 30 Days, TAB Prov: JOHNNY GROVES MD 10/02/21 Valacyclovir HCl (Valacyclovir) 1,000 Mg Tablet 1000 MG PO TID for 20 Days, TAB Prov: JOHNNY GROVES MD 10/02/21 Acyclovir (Acyclovir) 5 % Cream..g. 5 GM TP Q3HR for 20 Days, #1 EACH APPLY TO PAINFUL AREA WHERE SHINGLES EXIST Prov: JOHNNY GROVES MD 10/02/21 Rosuvastatin Calcium (Rosuvastatin Calcium) 20 Mg Tablet 20 MG PO HS for 30 Days, TAB Prov: JOHNNY GROVES MD 10/02/21 Sertraline HCl (Sertraline HCl) 100 Mg Tablet 100 MG PO DAILY for 30 Days, TAB Prov: JOHNNY GROVES MD 10/02/21 Omeprazole (Omeprazole) 40 Mg Capsule.dr 40 MG PO DAILY for 30 Days, CAP Prov: JOHNNY GROVES MD 10/02/21 Montelukast Sodium (Singulair) 10 Mg Tablet 10 MG PO DAILY PRN for 30 Days, TAB Prov: JOHNNY GROVES MD 10/02/21 Metoprolol Succinate (Metoprolol Succinate) 50 Mg Tab.er.24h 50 MG PO DAILY for 30 Days, TAB Prov: JOHNNY GROVES MD 10/02/21 Levothyroxine Sodium (Levothyroxine Sodium) 50 Mcg Tablet 50 MCG PO DAILY for 30 Days, TAB Prov: JOHNNY GROVES MD 10/02/21 Ondansetron (Ondansetron Odt) 4 Mg Tab.rapdis 4 MG PO Q6H for 30 Days, TAB Prov: JOHNNY GROVES MD 10/02/21 DOUG SANTIZO DO Oct 02, 2021 01:18
[2021-10-02] MEDS ORDERED: cefTRIAXone 1 GM PRE-MIX 50 ML IV ONE (01:30)
[2021-10-02 01:41] LABS: BASOPHILS # (AUTO) 0.1 10^3/uL (0.0-0.1); BASOPHILS % (AUTO) 0 % (0-10); EOSINOPHILS # (AUTO) 0.1 10^3/uL (0.0-0.3); EOSINOPHILS % (AUTO) 0 % (0-10); HEMATOCRIT 41 % (35-52); HEMOGLOBIN 13.3 g/dL (11.5-16.0); LYMPHOCYTES # (AUTO) 3.4 10^3/uL (1.0-4.0); LYMPHOCYTES % (AUTO) 24 % (12-44); MEAN CORPUSCULAR HEMOGLOBIN 30 pg (25-34); MEAN CORPUSCULAR HGB CONC 33 g/dL (32-36); MEAN CORPUSCULAR VOLUME 91 fL (80-99); MEAN PLATELET VOLUME 9.6 fL (9.0-12.2); MONOCYTES # (AUTO) 1.3 10^3/uL (0.0-1.0); MONOCYTES % (AUTO) 9 % (0-12); NEUTROPHILS # (AUTO) 9.3 10^3/uL (1.8-7.8); NEUTROPHILS % (AUTO) 66 % (42-75); PLATELET COUNT 295 10^3/uL (130-400); WHITE BLOOD COUNT 14.1 10^3/uL (4.3-11.0)
[2021-10-02 01:42] LABS: ALBUMIN 3.6 GM/DL (3.2-4.5)
[2021-10-02 01:43] LABS: POTASSIUM 3.4 MMOL/L (3.6-5.0)
[2021-10-02 01:44] LABS: CALCIUM 9.1 MG/DL (8.5-10.1)
[2021-10-02 01:45] LABS: TOTAL PROTEIN 5.7 GM/DL (6.4-8.2)
[2021-10-02 01:47] LABS: BILIRUBIN,TOTAL 0.4 MG/DL (0.1-1.0)
[2021-10-02 01:49] LABS: CREATININE SERUM 0.83 MG/DL (0.60-1.30)
[2021-10-02 01:51] LABS: MAGNESIUM 1.8 MG/DL (1.6-2.4)
[2021-10-02 01:57] LABS: AMPHETAMINE SCREEN, URINE NEGATIVE (NEGATIVE); BARBITURATE SCREEN URINE NEGATIVE (NEGATIVE); BENZODIAZEPINES SCREEN URINE POSITIVE (NEGATIVE); CANNABINOID SCREEN, URINE POSITIVE (NEGATIVE); COCAINE SCREEN URINE NEGATIVE (NEGATIVE); METHADONE STAT NEGATIVE (NEGATIVE); OPIATE SCREEN URINE NEGATIVE (NEGATIVE); OXYCODONE STAT NEGATIVE (NEGATIVE); PROPOXYPHENE STAT NEGATIVE (NEGATIVE); TRICYCLIC ANTIDEPRESSANTS SCRE NEGATIVE (NEGATIVE)
[2021-10-02] MEDS ORDERED: IOHEXOL 350 MG/ML 100 ML (OMNIPAQUE 350) VIAL IV ONE (03:15)
[2021-10-02] MEDS ORDERED: NS 100 ML (IVPB) BAG IV ONE (03:15)
[2021-10-02] MEDS ORDERED: CATHETER FLUSH 10 ML SYR IV PRN (03:15)
--- NOTE | 2021-10-02 07:08 | Diagnostic Imaging Report ---
INDICATION: Chest pain. Nausea and vomiting. Covid positive. Elevated D-dimer. CTA chest, abdomen and pelvis Thin axial sections through the chest, abdomen and pelvis are obtained following intravenous contrast bolus. Multiplanar MIP images were reconstructed and reviewed. All CT scans use one or more of the following dose optimizing techniques: automated exposure control, MA and/or KvP adjustment based on patient size and exam type or iterative reconstruction. COMPARISON: None. CTA chest: No evidence of pulmonary emboli to the subsegmental pulmonary arteries. The heart size is within normal limits. No pericardial effusion is present. There is no mediastinal, hilar, or axillary lymphadenopathy. Prominent calcified granuloma is seen in the superior aspect of the right lower lobe. Subsegmental atelectasis and hazy opacities are seen in the right lower lobe. No focal consolidation. No central endobronchial obstructing lesions. No pleural effusion or pneumothorax. No acute osseous abnormalities. CT abdomen and pelvis: There is focal fatty infiltration along the falciform ligament. No focal hepatic lesions. The portal vein is patent. The gallbladder surgically absent with mild intra and extrahepatic biliary dilation. Calcified granulomas are seen in the spleen. The pancreas, adrenal glands, and kidneys have a normal appearance. There is no pathologically enlarged mesenteric or retroperitoneal adenopathy. Nxgdr-yw-glgwnarb hiatal hernia is present. The bowel loops are nondilated. The appendix is visualized in the right lower quadrant and has a normal appearance. There is no free fluid or free air. The osseous structures are age-appropriate. There is calcified aortic and iliac atherosclerotic plaque without aneurysm. The urinary bladder is decompressed. A heterogeneous part cystic part solid mass is seen in the pelvis measuring 11.4 x 8.4 cm. There is no free air, loculated collection, or adenopathy in the pelvis. IMPRESSION: 1. No evidence of pulmonary emboli to the subsegmental pulmonary arteries. 2. Part solid part cystic mass within the pelvis favored to originate from the left ovary. Consider further evaluation with pelvic ultrasound and/or pelvic MRI with and without contrast and gynecologic consultation. 3. Hazy opacities in the right lung base with additional subsegmental atelectasis. Findings may represent inflammatory/infectious process. 4. Mild intra and extra hepatic biliary dilation likely due to postcholecystectomy changes. 5. [id number]-wd-[id number] hiatal hernia. Agree with overnight report. Dictated by: Dictated on workstation # [id number]
[2021-10-02 08:00] VITALS: BP 128/65
[2021-10-02] MEDS ORDERED: ACETAMINOPHEN 500 MG TAB (TYLENOL) PO PRN (09:00)
[2021-10-02] MEDS: PANTOPRAZOLE 40 MG (PROTONIX) VIAL IV SCH (09:38)
[2021-10-02] MEDS ORDERED: ACYC5CRE8 TP (10:57)
[2021-10-02] MEDS ORDERED: LEVO50TA6 PO (10:57)
[2021-10-02] MEDS ORDERED: SERT-414 PO (10:57)
[2021-10-02] MEDS ORDERED: ROSU20TA32 PO (10:57)
[2021-10-02] MEDS ORDERED: OMEP40CA6 PO (10:57)
[2021-10-02] MEDS ORDERED: METO50TA7 PO (10:57)
[2021-10-02] MEDS ORDERED: MONT10TA21 PO (10:57)
[2021-10-02] MEDS ORDERED: ONDA4TAB11 PO (10:57)
[2021-10-02] MEDS ORDERED: VALA10007 PO (10:57)
[2021-10-02] MEDS ORDERED: ROPI0.5T4 PO (10:57)
[2021-10-02] MEDS ORDERED: TRAM50TA3 PO (10:58)
--- NOTE | 2021-10-02 11:00 | Consultation ---
History of Present Illness History of Present Illness Patient Consulted On(monster/time) 10/02/21 10:46 Date Seen by Provider: Oct 02, 2021 Time Seen by Provider: 10:46 Reason for Visit: Multilocular pelvic mass History of Present Illness This patient is a 61-year-old Nulligravida white female who was admitted due to shortness of breath nausea vomiting pelvic pain. She had been admitted within the last week for similar symptoms treated with IV hydration improved and was sent home. On evaluation for this admission patient was found to be COVID-positive. Urine also was consistent with urinary tract infection possibly early pyelonephritis. CT was performed and demonstrated a multilocular cystic mass that appears to arise in the left adnexa. CT of the abdomen pelvis was otherwise unremarkable. I am the AGRICULTURE TECHNICIAN on-call and I was consulted due to the pelvic mass. Patient is seen in room 433 on October 02, 2021. She reports that she feels somewhat better since being admitted. She has received a dose of Rocephin and treatment for her urinary tract infection and in treatment for a concern for into a pulmonary infiltrate. Patient currently denies nausea or vomiting. She states that her pain is better. Bedside ultrasound is being performed at the time I visited the patient. The sonPROLOR Biotech tech allowed me to observe. There is clearly a large multilocular cystic mass in the pelvis. This mass fills the pelvis is indeterminate whether this is arising from the right or the left. I would be suspicious that this could repre sent a hydrosalpinx as this consented today does feel that the ovary is distinct and separate from this mass. There is no significant free fluid noted. Transvaginal ultrasound is pending and Official radiology report is pending. Allergies are to coconut and dexamethasone Medications are per the MAR - Which I have reviewed Past medical history includes a cholecystectomy Medical history includes recent episode of shingles current episode of COVID, And patient currently has an apparent urinary tract infection/early pyelonephritis that is recognized and being treated with Rocephin. Patient may have a pulmonary infiltrate that is considered to be covered by the Rocephin as well. Medical history Social history Review of systems as per the HPI but also includes shortness of breath back pain pelvic pain nausea and vomiting Physical exam and pelvic exam is deferred as patient currently is undergoing ultrasound with transvaginal ultrasound pending which will be informative and illuminating as well. Laboratory Tests Test 10/02/21 00:28 10/02/21 00:35 10/02/21 01:25 Range/Units SARS-CoV-2 RNA (RT-PCR) Detected H Not Detecte Urine Color YELLOW Urine Clarity CLEAR Urine pH 6.0 5-9 Urine Specific Russell >=1.030 1.016-1.022 Urine Protein 1+ H NEGATIVE Urine Glucose (UA) NEGATIVE NEGATIVE Urine Ketones NEGATIVE NEGATIVE Urine Nitrite NEGATIVE NEGATIVE Urine Bilirubin 1+ H NEGATIVE Urine Urobilinogen 1.0 < = 1.0 MG/DL Urine Leukocyte Esterase 2+ H NEGATIVE Urine RBC (Auto) NEGATIVE NEGATIVE Urine RBC NONE /HPF Urine WBC 25-50 H /HPF Urine Squamous Epithelial Cells 2-5 /HPF Urine Crystals NONE /LPF Urine Bacteria MODERATE H /HPF Urine Casts PRESENT /LPF Urine Hyaline Casts 0-2 H /LPF Urine Mucus MODERATE H /LPF Urine Culture Indicated YES Urine Opiates Screen NEGATIVE NEGATIVE Urine Oxycodone Screen NEGATIVE NEGATIVE Urine Methadone Screen NEGATIVE NEGATIVE Urine Propoxyphene Screen NEGATIVE NEGATIVE Urine Barbiturates Screen NEGATIVE NEGATIVE Ur Tricyclic Antidepressants Screen NEGATIVE NEGATIVE Urine Phencyclidine Screen NEGATIVE NEGATIVE Urine Amphetamines Screen NEGATIVE NEGATIVE Urine Methamphetamines Screen NEGATIVE NEGATIVE Urine Benzodiazepines Screen POSITIVE H NEGATIVE Urine Cocaine Screen NEGATIVE NEGATIVE Urine Cannabinoids Screen POSITIVE H NEGATIVE White Blood Count 14.1 H 4.3-11.0 10^3/uL Red Blood Count 4.45 3.80-5.11 10^6/uL Hemoglobin 13.3 11.5-16.0 g/dL Hematocrit 41 35-52 % Mean Corpuscular Volume 91 80-99 fL Mean Corpuscular Hemoglobin 30 25-34 pg Mean Corpuscular Hemoglobin Concent 33 32-36 g/dL Red Cell Distribution Width 14.6 H 10.0-14.5 % Platelet Count 295 130-400 10^3/uL Mean Platelet Volume 9.6 9.0-12.2 fL Immature Granulocyte % (Auto) 0 % Neutrophils (%) (Auto) 66 42-75 % Lymphocytes (%) (Auto) 24 12-44 % Monocytes (%) (Auto) 9 0-12 % Eosinophils (%) (Auto) 0 0-10 % Basophils (%) (Auto) 0 0-10 % Neutrophils # (Auto) 9.3 H 1.8-7.8 10^3/uL Lymphocytes # (Auto) 3.4 1.0-4.0 10^3/uL Monocytes # (Auto) 1.3 H 0.0-1.0 10^3/uL Eosinophils # (Auto) 0.1 0.0-0.3 10^3/uL Basophils # (Auto) 0.1 0.0-0.1 10^3/uL Immature Granulocyte # (Auto) 0.1 0.0-0.1 10^3/uL Sodium Level 137 135-145 MMOL/L Potassium Level 3.4 L 3.6-5.0 MMOL/L Chloride Level 103 98-107 MMOL/L Carbon Dioxide Level 20 L 21-32 MMOL/L Anion Gap 14 5-14 MMOL/L Blood Urea Nitrogen 17 7-18 MG/DL Creatinine 0.83 0.60-1.30 MG/DL Estimat Glomerular Filtration Rate 79 BUN/Creatinine Ratio 20 Glucose Level 121 H 70-105 MG/DL Calcium Level 9.1 8.5-10.1 MG/DL Corrected Calcium 9.4 8.5-10.1 MG/DL Magnesium Level 1.8 1.6-2.4 MG/DL Total Bilirubin 0.4 0.1-1.0 MG/DL Aspartate Amino Transf (AST/SGOT) 17 5-34 U/L Alanine Aminotransferase (ALT/SGPT) 10 0-55 U/L Alkaline Phosphatase 73 40-136 U/L Total Protein 5.7 L 6.4-8.2 GM/DL Albumin 3.6 3.2-4.5 GM/DL Amylase Level 66 25-125 U/L Lab work is as noted Vital Signs Date Time Temp Pulse Resp B/P (MAP) Pulse Ox O2 Delivery O2 Flow Rate FiO2 10/02/21 10:22 70 10/02/21 08:54 95 Room Air 10/02/21 08:47 93 Room Air 10/02/21 08:00 35.8 75 16 128/65 (86) 95 Room Air 10/02/21 06:25 68 20 112/75 95 Room Air 10/02/21 00:15 36.7 74 20 105/67 (80) 95 Room Air Vital signs are stable. Patient is afebrile. O2 sats are normal CT report was reviewed and again demonstrates a multilocular pelvic cystic mass further evaluation is pending with ultrasound and transvaginal ultrasound Assessment and plan This patient has active COVID disease as well as urinary tract infection/early pyelonephritis.Urine culture is pending This patient has a pelvic mass seen on CT with ultrasound transabdominally being performed during my visit and transvaginal ultrasound pending. This mass could very well represent an ovarian neoplasia however it does seem suspicious in appearance for a hydrosalpinx. Further evaluation can be accomplished on an outpatient basis as I doubt that this mass is contributing to the patient's current condition or symptoms. I doubt that this mass represents an acute process. The exception would be that if this is complicated by torsion however patient's appearance is not concerning for that complication. I have discussed with the patient consideration for follow-up for further evaluation and management in clinic. It is not clear to me whether this patient has a health careers instructor currently if she does not follow-up there would be appropriate however if she would like I be happy to see her in my clinic within a week or 2 of discharge here whenever her symptoms have resolved from her urinary tract infection and COVID infection. I will follow-up on the results of the transvaginal ultrasound as well as the results of the lab work that is pending including a CEA and CA125. I am available if I can be of further assistance. Thank you for this consultation Allergies and Home Medications Allergies Coded Allergies: coconut (Verified Allergy, Severe, Anaphylaxis, 10/02/21) dexamethasone (Unverified Allergy, Intermediate, SWELLING, 10/02/21) Patient Home Medication List Home Medication List Reviewed: No Acyclovir (Acyclovir) 5 % Cream..g., 5 GM TP Q3HR Prescribed by: MICA BUENROSTRO on 10/02/211056 Last Action: New Order Levothyroxine Sodium (Levothyroxine Sodium) 50 Mcg Tablet, 50 MCG PO DAILY Prescribed by: MICA BUENROSTRO on 10/02/211056 Last Action: New Order Metoprolol Succinate (Metoprolol Succinate) 50 Mg Tab.er.24h, 50 MG PO DAILY Prescribed by: MICA BUENROSTRO on 10/02/211056 Last Action: New Order Montelukast Sodium (Singulair) 10 Mg Tablet, 10 MG PO DAILY PRN Prescribed by: MICA BUENROSTRO on 10/02/211056 Last Action: New Order Omeprazole (Omeprazole) 40 Mg Capsule.dr, 40 MG PO DAILY Prescribed by: MICA BUENROSTRO on 10/02/211056 Last Action: New Order Ondansetron (Ondansetron Odt) 4 Mg Tab.rapdis, 4 MG PO Q6H Prescribed by: MICA BUENROSTRO on 10/02/211056 Last Action: New Order Ropinirole HCl (Ropinirole HCl) 0.5 Mg Tablet, 0.5 MG PO HS Prescribed by: MICA BUENROSTRO on 10/02/211056 Last Action: New Order Rosuvastatin Calcium (Rosuvastatin Calcium) 20 Mg Tablet, 20 MG PO HS Prescribed by: MICA BUENROSTRO on 10/02/211056 Last Action: New Order Sertraline HCl (Sertraline HCl) 100 Mg Tablet, 100 MG PO DAILY Prescribed by: MICA BUENROSTRO on 10/02/211056 Last Action: New Order Tramadol HCl (Tramadol HCl) 50 Mg Tablet, 50 MG PO Q8H Prescribed by: MICA BUENROSTRO on 10/02/211057 Last Action: New Order Valacyclovir HCl (Valacyclovir) 1,000 Mg Tablet, 1,000 MG PO TID Prescribed by: MICA BUENROSTRO on 10/02/211056 Last Action: New Order Discontinued Medications Levothyroxine Sodium (Unithroid) 50 Mcg Tablet, 50 MCG PO, (Reported) Discontinued Reason: No Longer Taking Entered as Reported by: ANTHONY GARZA on 10/19/092232 Last Action: Discontinued Nebivolol Hcl (Bystolic) 10 Mg Tablet, 1 EACH PO DAILY, (Reported) Discontinued Reason: No Longer Taking Entered as Reported by: ANTHONY GARZA on 10/19/092232 Last Action: Discontinued Ondansetron (Ondansetron Odt) 4 Mg Tab.rapdis, 4 MG PO Q6H PRN for NAUSEA/VOMITING Discontinued Reason: No Longer Taking Prescribed by: SHARYN DAVIS on 09/22/21 174 Last Action: Discontinued Rabeprazole Sodium (Aciphex) 20 Mg Tablet.dr, 20 MG PO, (Reported) Discontinued Reason: No Longer Taking Entered as Reported by: ANTHONY GARZA on 10/19/092232 Last Action: Discontinued Sertraline Hcl (Zoloft) 100 Mg Tab, 100 MG PO DAILY, (Reported) Discontinued Reason: No Longer Taking Entered as Reported by: ANTHONY Nazario KAYLA on 10/19/092232 Last Action: Discontinued Simvastatin (Zocor) 40 Mg Tablet, 1 TAB PO DAILY, (Reported) Discontinued Reason: No Longer Taking Entered as Reported by: ANTHONY Nazario GARZA on 10/19/092232 Last Action: Discontinued Past Txsudsl-Iyofqb-Ukwzjv Hx Patient Social History Tobacco Use?: Yes Tobacco type used: Cigarettes Smoking Status: Current Everyday Smoker Smokeless Tobacco Frequency: Never a User Use of E-Cig and/or Vaping dev: No Substance use?: No Substance type: Marijuana Substance frequency: Couple times a week Alcohol Use?: No Pt feels they are or have been: No Immunizations Up To Date Influenza Vaccine Up-to-Date: Yes; Up-to-Date Second COVID19 Vaccination Monster: doesn't know date COVID19 Vaccine Lab Asst: Flooved Seasonal Allergies Seasonal Allergies: No Past Medical History Surgery/Hospitalization HX: dentures not with patient, glasses with patient on admission Surgeries: Yes (ORAL SURGERY) Gallbladder Respiratory: No Cardiac: Yes High Cholesterol, Hypertension 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
--- NOTE | 2021-10-02 11:33 | Physical Therapy Evaluation ---
PT Evaluation-General Medical Diagnosis Admission Date Oct 02, 2021 at 05:30 Medical Diagnosis: weakness Onset Date: Oct 02, 2021 Therapy Diagnosis Therapy Diagnosis: weakness Height/Weight Height (Feet): 5 Height (Inches): 5.00 Weight (Pounds): 160 Precautions Precautions/Isolations: Contact Isolation Weight Bear Status Right Lower Extremity: Right Weight Bearing/Tolerated Left Lower Extremity: Left Weight Bearing/Tolerated Referral Physician: Chai Reason for Referral: Evaluation/Treatment Social History Home: Single Level Current Living Status: Friend PT Steps Into Home: 1 Prior Prior Level of Function SCALE: Activities may be completed with or without assistive devices. 9-Ologbzouwb-thsamjc completes the activity by him/herself with no assistance from a helper. 5-Set-up or Clean-up Assistance-helper sets up or cleans up; patient completes activity. [place] assists only prior to or following the activity. 4-Supervision or Touching Assistance-helper provides verbal cues and/or touching/steadying and/or contact guard assistance as patient completes activity. Assistance may be provided throughout the activity or intermittently. 3-Partial/Moderate Assistance-helper does LESS THAN HALF the effort. [place] lifts, holds or supports trunk or limbs, but provides less than half the effort. 2-Substantial/Maximal Assistance-helper does MORE THAN HALF the effort. [place] lifts or holds trunk or limbs and provides more than half the effort. 2-Ihpbbsbgy-ouyldb does ALL the effort. Patient does none of the effort to complete the activity. Or, the assistance of 2 or more helpers is required for the patient to complete the activity. If activity was not attempted, code reason: 7-Patient Refused. 9-Not Applicable-not attempted and the patient did not perform the activity before the current illness, exacerbation or injury. 10-Not Attempted due to Environmental Limitations-(lack of equipment, weather restraints, etc.). 88-Not Attempted due to Medical Conditions or Safety Concerns. Bed Mobility: 6 Transfers (B,C,W/C): 6 Gait: 6 Stairs: 6 Indoor Mobility (Ambulation): Independent Stairs: Independent PT Evaluation-Current Subjective The patient states that she has been having a lot of nausea and vomitting. Objective Patient Orientation: Person, Place, Time, Situation ROM/Strength Strength Lower Extremities 4+/5 grossly Transfers Roll Left to Right (QC): 6 Sit to Lying (QC): 6 Lying to Sitting/Side of Bed(Q: 6 Sit to Stand (QC): 6 Gait Does the Patient Walk?: Yes Mode of Locomotion: Walk Anticipated Mode of Locomotion: Walk Walk 50 ft with 2 Turns(QC): 6 Distance: 50' Gait Assistive Device: None Balance Sitting Static: Normal Sitting Dynamic: Normal Standing Static: Good Standing Dynamic: Good Assessment/Needs Patient is doing well with gait and reports that she is up at [place] in her room and that she doesn't feel like she needs therapy. Rehab Potential: Good PT Plan Treatment/Plan Treatment Plan: Discontinue PT Treatment Duration: Oct 02, 2021 Frequency: 1 time per week Time/GCodes Time In: 1110 Time Out: 1120 Total Billed Treatment Time: 10 Total Billed Treatment 1, EV low complexity x 10' DAQUAN HUNT PT Oct 02, 2021 11:33
--- NOTE | 2021-10-02 11:50 | History & Physical-Hospitalist ---
History of Present Illness HPI/Chief Complaint Patient is 61-year-old female with a past medical history of hypertension, high cholesterol, hypothyroidism and depression who presented to the emergency department due to weakness. She reports she has been ill for roughly 3 weeks and that it started with her having shingles on her tailbone. That has essentially resolved but then roughly 7 to 10 days ago she started feeling sick again. She had nausea and vomiting. She became progressively weak and lethargic. She vomited 3 times yesterday. She denies any cough sore throat or runny nose. In the emergency room she was found to have COVID. She was also incidentally found to have a large pelvic mass. And UA was done which revealed a urinary tract infection. She was admitted for further management. She reports feeling better already with some fluids and is currently getting a pelvic ultrasound. Source: patient Date Seen 10/02/21 Time Seen by a Provider: 11:43 Attending Physician No,Local Physician PCP Admitting Physician: Reba Hein MD Attending Physician: Reba Hein MD Referring Physician Date of Admission Oct 02, 2021 at 05:30 Home Medications & Allergies Home Medications Reviewed patient Home Medication Reconciliation performed by pharmacy medication reconciliations criminalist technician and/or nursing. Patients Allergies have been reviewed. Allergies Allergies Coded Allergies coconut (Verified Allergy, Severe, Anaphylaxis, 10/02/21) dexamethasone (Unverified Allergy, Intermediate, SWELLING, 10/02/21) Past Iennavi-Ecnchk-Dhktvh Hx Patient Social History Tobacco Use?: Yes Tobacco type used: Cigarettes Smoking Status: Current Everyday Smoker Smokeless Tobacco Frequency: Never a User Use of E-Cig and/or Vaping dev: No Substance use?: No Substance type: Marijuana Substance frequency: Couple times a week Alcohol Use?: No Pt feels they are or have been: No Immunizations Up To Date Second COVID19 Vaccination Monster: doesn't know date Tetanus Booster (TDap): Less Than 5 Years Seasonal Allergies Seasonal Allergies: No Current Status status: No status: No Advance Directives: Yes Advance Directive Location: Home Communicates: Verbally Primary Language: Norwegian Preferred Spoken Language: Norwegian Is interpretation needed?: No Implanted or Applied Medical D: None Past Medical History Surgeries: Gallbladder High Cholesterol, Hypertension 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 Hypothyroidsim Cataract, Glaucoma Blood Disorders: No Family Medical History Reviewed Nursing Family Hx No Pertinent Family Hx SOCIAL HISTORY: SMOKES 1 PPD ETOH--USED TO DRINK MODERATE TO HEAVILY--NONE FOR A FEW YEARS THC ON REGULAR BASIS, NONE FOR 3 WEEKS Review of Systems Constitutional: No chills, No fever; malaise, weakness EENTM: no symptoms reported Respiratory: No cough, No short of breath Cardiovascular: no symptoms reported Gastrointestinal: No abdominal pain; diarrhea, nausea, vomiting Genitourinary: no symptoms reported Musculoskeletal: no symptoms reported Skin: no symptoms reported Psychiatric/Neurological: No Symptoms Reported Physical Exam Physical Exam Vital Signs Vital Signs - First Documented 10/02/21 00:15 Temp 36.7 Pulse 74 Resp 20 B/P (MAP) 105/67 (80) Pulse Ox 95 O2 Delivery Room Air Capillary Refill : Less Than 3 Seconds Height, Weight, BMI Height: 5'5.00" Weight: 160lbs. oz. 72.230900om; 24.32 BMI Method:Stated General Appearance: No Apparent Distress, WD/WN, Thin HEENT: PERRL/EOMI, Moist Mucous Membranes Neck: Normal Inspection, Supple Respiratory: Lungs Clear, No Respiratory Distress Cardiovascular: Regular Rate, Rhythm, No Murmur Gastrointestinal: Normal Bowel Sounds, Non Tender, Soft Extremity: Normal Capillary Refill, No Calf Tenderness, No Pedal Edema Neurologic/Psychiatric: Alert, Oriented x3, Normal Mood/Affect Skin: Normal Color, Warm/Dry Results Results/Procedures Labs Laboratory Tests 10/02/21 01:25 10/03/21 07:15 Patient resulted labs reviewed. Imaging: Reviewed Imaging Report Imaging [facility], [place] NAME: GRACIE DURANT [facility] REC#: [id number] PT STATUS: ADM IN : 1960 PHYSICIAN: DOUG SANTIZO DO ADMIT DATE: 10/02/21/ Signed Date of Exam:10/02/21 CT SHARLENE CHEST/NOANG ABD-PELV W INDICATION: Chest pain. Nausea and vomiting. Covid positive. Elevated D-dimer. CTA chest, abdomen and pelvis Thin axial sections through the chest, abdomen and pelvis are obtained following intravenous contrast bolus. Multiplanar MIP images were reconstructed and reviewed. All CT scans use one or more of the following dose optimizing techniques: automated exposure control, MA and/or KvP adjustment based on patient size and exam type or iterative reconstruction. COMPARISON: None. CTA chest: No evidence of pulmonary emboli to the subsegmental pulmonary arteries. The heart size is within normal limits. No pericardial effusion is present. There is no mediastinal, hilar, or axillary lymphadenopathy. Prominent calcified granuloma is seen in the superior aspect of the right lower lobe. Subsegmental atelectasis and hazy opacities are seen in the right lower lobe. No focal consolidation. No central endobronchial obstructing lesions. No pleural effusion or pneumothorax. No acute osseous abnormalities. CT abdomen and pelvis: There is focal fatty infiltration along the falciform ligament. No focal hepatic lesions. The portal vein is patent. The gallbladder surgically absent with mild intra and extrahepatic biliary dilation. Calcified granulomas are seen in the spleen. The pancreas, adrenal glands, and kidneys have a normal appearance. There is no pathologically enlarged mesenteric or retroperitoneal adenopathy. Cwnqa-nn-vjniblqv hiatal hernia is present. The bowel loops are nondilated. The appendix is visualized in the right lower quadrant and has a normal appearance. There is no free fluid or free air. The osseous structures are age-appropriate. There is calcified aortic and iliac atherosclerotic plaque without aneurysm. The urinary bladder is decompressed. A heterogeneous part cystic part solid mass is seen in the pelvis measuring 11.4 x 8.4 cm. There is no free air, loculated collection, or adenopathy in the pelvis. IMPRESSION: 1. No evidence of pulmonary emboli to the subsegmental pulmonary arteries. 2. Part solid part cystic mass within the pelvis favored to originate from the left ovary. Consider further evaluation with pelvic ultrasound and/or pelvic MRI with and without contrast and gynecologic consultation. 3. Hazy opacities in the right lung base with additional subsegmental atelectasis. Findings may represent inflammatory/infectious process. 4. Mild intra and extra hepatic biliary dilation likely due to postcholecystectomy changes. 5. Zxrqc-pp-waxkjjiq hiatal hernia. Agree with overnight report. Dictated by: Dictated on workstation # [id number] Dict: 10/02/21 0642 Trans: 10/02/2116 JOEL [id number] Interpreted by: PANKAJ IQBAL DO Electronically signed by: PANKAJ IQBAL DO 10/02/21715 Assessment/Plan Admission Diagnosis COVID19 Likely on tail end of illness No currently on oxygen Supportive treatment PT for weakness UTI Continue on IV abx Await cultures Pelvic mass Dr Miller consulted, appreciate recs Spoke with him at pt bedside- needs outpatient follow up Pelvic usg Admission Status: Inpatient Order (span 2 midnights) Reason for Inpatient Admission: see above MARVIN SANCHEZ MD Oct 02, 2021 11:50
[2021-10-02 12:00] VITALS: BP 108/70
--- NOTE | 2021-10-02 12:33 | Diagnostic Imaging Report ---
PROCEDURE: US PELVIC (NON OB) TECHNIQUE: Multiple real-time grayscale images were obtained over the pelvis in various projections transabdominally. INDICATION: Left ovarian mass seen on CT. Patient is positive for COVID. EXAMINATION: Ultrasound pelvis 10/02/[address] a CT dated 10/02/2021 FINDINGS: There is a large heterogeneous masslike abnormality along the left adnexa measuring 9 x 6.2 x 6.8 cm. Multiple internal septations noted which are rather thick in appearance. A separate left ovary is not seen with the overall size of the ovary measured as the masslike abnormality. Peripheral vascularity and vascularity within the septations noted. The right ovary is not visualized. The uterus contains a heterogeneous hypoechoic area measuring 1 cm in greatest dimension likely a fibroid. There is a well-visualized visualization of the uterus due to the adjacent mass in the left adnexa. Uterus overall 6.5 cm in greatest mention. Endometrium 0.3 cm in thickness. There is no free fluid. IMPRESSION: 1. Large heterogeneous partially cystic mass likely emanating from the left ovary with a separate ovary not seen. This is indeterminate and could represent a large complex cyst. Cystic carcinoma is not excluded at this time. 2. Remaining visualized structures unremarkable other than a likely fibroid uterus with overall limited evaluation of the uterus as noted above. Right ovary not visualized. Dictated by: Dictated on workstation # [id number]
[2021-10-02] MEDS: LACTATED RINGERS 1,000 ML IV SCH ×3 (14:05→23:45)
[2021-10-02 16:11] VITALS: BP 148/74
[2021-10-02 20:22] VITALS: BP 122/75
[2021-10-02] MEDS: MONTELUKAST 10 MG (SINGULAIR) TAB PO SCH (21:22)
[2021-10-02] MEDS: SERTRALINE 100 MG (ZOLOFT) TAB PO SCH (21:22)
[2021-10-02] MEDS: rOPINIRole 0.25 MG (REQUIP) TAB PO PRN (21:23)
[2021-10-02] MEDS: cefTRIAXone 1 GM PRE-MIX 50 ML IV SCH (23:45)
[2021-10-03 00:01] VITALS: BP 128/76
[2021-10-03] MEDS: ONDANSETRON 4 MG/2 ML (SDV) Z0FRAN IVP PRN ×2 (00:22→10:08)
[2021-10-03 04:00] VITALS: BP 120/70
[2021-10-03] MEDS: LEVOTHYROXINE 50 MCG (LEVOTHROID) TAB PO SCH (06:14)
[2021-10-03 07:52] LABS: BASOPHILS # (AUTO) 0.1 10^3/uL (0.0-0.1); BASOPHILS % (AUTO) 1 % (0-10); EOSINOPHILS # (AUTO) 0.2 10^3/uL (0.0-0.3); EOSINOPHILS % (AUTO) 2 % (0-10); HEMATOCRIT 37 % (35-52); HEMOGLOBIN 12.1 g/dL (11.5-16.0); LYMPHOCYTES % (AUTO) 48 % (12-44); MEAN CORPUSCULAR HEMOGLOBIN 30 pg (25-34); MEAN CORPUSCULAR HGB CONC 33 g/dL (32-36); MEAN CORPUSCULAR VOLUME 92 fL (80-99); MEAN PLATELET VOLUME 9.7 fL (9.0-12.2); MONOCYTES # (AUTO) 0.8 10^3/uL (0.0-1.0); MONOCYTES % (AUTO) 8 % (0-12); NEUTROPHILS # (AUTO) 4.3 10^3/uL (1.8-7.8); NEUTROPHILS % (AUTO) 41 % (42-75); PLATELET COUNT 268 10^3/uL (130-400); WHITE BLOOD COUNT 10.4 10^3/uL (4.3-11.0)
[2021-10-03 07:59] LABS: POTASSIUM 3.6 MMOL/L (3.6-5.0)
[2021-10-03 08:05] LABS: CREATININE SERUM 0.7 MG/DL (0.60-1.30)
[2021-10-03 08:57] VITALS: BP 131/73
[2021-10-03] MEDS: meTOproloL SUCCINATE 50 MG (TOPROL XL) TAB PO SCH (09:00)
[2021-10-03] MEDS: PANTOPRAZOLE 40 MG (PROTONIX) VIAL IV SCH (09:00)
[2021-10-03] MEDS: LACTATED RINGERS 1,000 ML IV SCH (10:11)
--- NOTE | 2021-10-03 10:41 | Progress Note - Hospitalist ---
Subjective HPI/CC On Admission Date Seen by Provider: Oct 03, 2021 Patient is 61-year-old female with a past medical history of hypertension, high cholesterol, hypothyroidism and depression who presented to the emergency department due to weakness. She reports she has been ill for roughly 3 weeks and that it started with her having shingles on her tailbone. That has essentially resolved but then roughly 7 to 10 days ago she started feeling sick again. She had nausea and vomiting. She became progressively weak and lethargic. She vomited 3 times yesterday. She denies any cough sore throat or runny nose. In the emergency room she was found to have COVID. She was also incidentally found to have a large pelvic mass. And UA was done which revealed a urinary tract infection. She was admitted for further management. She reports feeling better already with some fluids and is currently getting a pelvic ultrasound. Subjective/Events-last exam Pt reports doing better today. Ate breakfast and at first did well but now nauseated again. Just got Zofran and it is starting to work. Does not quite feel read to DC home yet. Objective Exam Vital Signs Vital Signs Date Time Temp Pulse Resp B/P (MAP) Pulse Ox O2 Delivery O2 Flow Rate FiO2 10/03/21 08:57 36.6 61 17 131/73 (92) 93 Room Air Capillary Refill : Less Than 3 Seconds General Appearance: No Apparent Distress, WD/WN Respiratory: Lungs Clear, No Respiratory Distress Cardiovascular: Regular Rate, Rhythm, No Murmur Neurologic/Psychiatric: Alert, Oriented x3 Results/Procedures Lab Laboratory Tests 10/03/21 07:15 Patient resulted labs reviewed. Imaging: Reviewed Imaging Report Assessment/Plan Assessment and Plan Assess & Plan/Chief Complaint COVID19 Nausea and vomiting Likely on tail end of illness No currently on oxygen Supportive treatment Zofran prn Offered DC home today but not quite ready- plan to DC home tomorrow UTI Continue on IV abx Await cultures still Pelvic mass Dr Miller consulted, appreciate recs Pelvic usg showed large partially cystic mass from left ovary Follow up as an outpatient Diagnosis/Problems Diagnosis/Problems (1) COVID-19 virus infection Status: Acute (2) Mass of left ovary Status: Acute (3) Intractable nausea and vomiting Status: Acute (4) Urinary tract infection Status: Acute MARVIN SANCHEZ MD Oct 03, 2021 10:41
[2021-10-03 12:37] VITALS: BP 128/72
[2021-10-03 16:06] VITALS: BP 121/68
[2021-10-03 20:23] VITALS: BP 130/89
[2021-10-03] MEDS: MONTELUKAST 10 MG (SINGULAIR) TAB PO SCH (21:00)
[2021-10-03] MEDS: SERTRALINE 100 MG (ZOLOFT) TAB PO SCH (21:00)
[2021-10-03] MEDS: rOPINIRole 0.25 MG (REQUIP) TAB PO PRN (21:03)
[2021-10-04] VITALS: BP 127/71
[2021-10-04] MEDS: cefTRIAXone 1 GM PRE-MIX 50 ML IV SCH (00:39)
[2021-10-04 04:00] VITALS: BP 130/72
[2021-10-04] MEDS: LEVOTHYROXINE 50 MCG (LEVOTHROID) TAB PO SCH (06:05)
[2021-10-04 07:46] VITALS: BP 102/65
[2021-10-04] MEDS: rOPINIRole 0.25 MG (REQUIP) TAB PO PRN (09:09)
[2021-10-04] MEDS: meTOproloL SUCCINATE 50 MG (TOPROL XL) TAB PO SCH (09:09)
[2021-10-04] MEDS: PANTOPRAZOLE 40 MG (PROTONIX) VIAL IV SCH (09:09)
[2021-10-04 11:37] VITALS: BP 128/77
[2021-10-04] MEDS ORDERED: NITR-65 PO (11:55)
[2021-10-04 13:08] VITALS: BP 128/77
--- NOTE | 2021-10-04 18:10 | Discharge Summary ---
Discharge Summary Hospital Course Was the Problem List Reviewed?: Yes Problems/Dx: (1) COVID-19 virus infection Status: Acute (2) Mass of left ovary Status: Acute (3) Intractable nausea and vomiting Status: Acute (4) Urinary tract infection Status: Acute Hospital Course Date of Admission: Oct 02, 2021 at 05:30 Admission Diagnosis : COVID-19, intractable nausea and vomiting, pelvic mass Family Physician/Provider: No,Local Physician Date of Discharge: 10/04/21 Discharge Diagnosis: COVID-19, likely ovarian cancer Hospital Course: Roselia Henderson is a 61 year old female who presented with nausea and vomiting and was admitted with COVID-19 and pelvic mass. She was not requiring any supplemental oxygen. She did not require any treatment for COVID. She was evaluated by OBGYN and they recommended outpatient follow up for surgical evaluation. She was given an antibiotic for possible UTI. Her urine culture appeared contaminated. Her nausea and vomiting improved. She should follow up with her PCP and OBGYN, Dr. Miller. She stated she wanted to discuss her treatment options with her PCP and I encouraged her to follow up with Dr. Miller as well. She was discharged home in stable condition. Labs and Pending Lab Test: Microbiology 10/02/21 Urine Culture - Final, Complete 3 or more isolates Home Meds Active Macrobid 100 mg Capsule (Nitrofurantoin Monohyd/M-Cryst) 100 Mg Capsule 1 Tab PO BID 5 Days Tramadol HCl 50 Mg Tablet 50 Mg PO Q8H 7 Days Ropinirole HCl 0.5 Mg Tablet 0.5 Mg PO HS 30 Days Valacyclovir (Valacyclovir HCl) 1,000 Mg Tablet 1,000 Mg PO TID 20 Days Acyclovir 5 % Cream..g. 5 Gm TP Q3HR 20 Days APPLY TO PAINFUL AREA WHERE SHINGLES EXIST Rosuvastatin Calcium 20 Mg Tablet 20 Mg PO HS 30 Days Sertraline HCl 100 Mg Tablet 100 Mg PO DAILY 30 Days Omeprazole 40 Mg Capsule.dr 40 Mg PO DAILY 30 Days Singulair (Montelukast Sodium) 10 Mg Tablet 10 Mg PO DAILY PRN 30 Days Metoprolol Succinate 50 Mg Tab.er.24h 50 Mg PO DAILY 30 Days Levothyroxine Sodium 50 Mcg Tablet 50 Mcg PO DAILY 30 Days Ondansetron Odt (Ondansetron) 4 Mg Tab.rapdis 4 Mg PO Q6H 30 Days Assessment/Pt Instructions See instructions Discharge Planning: >30 minutes discharge planning Discharge Instructions Discharge Diet: No Restrictions Activity as Tolerated: Yes Consultations OBGYN Discharge Physical Examination Vital Signs Vital Signs Date Time Temp Pulse Resp B/P (MAP) Pulse Ox O2 Delivery O2 Flow Rate FiO2 10/04/21 13:08 36.6 66 18 128/77 93 Room Air General Appearance: No Apparent Distress, WD/WN Respiratory: Lungs Clear, No Respiratory Distress Cardiovascular: Regular Rate, Rhythm, No Murmur Gastrointestinal: Normal Bowel Sounds, Soft Extremity: Normal Inspection, No Pedal Edema Neurologic/Psychiatric: Alert, Normal Mood/Affect Allergies: Coded Allergies: coconut (Verified Allergy, Severe, Anaphylaxis, 10/02/21) dexamethasone (Unverified Allergy, Intermediate, SWELLING, 10/02/21) Copy Copies To 1: DENISE MILLER MD Discharge Summary Date of Admission Oct 02, 2021 at 05:30 Date of Discharge Oct 04, 2021 at 13:44 Discharge Date: Oct 04, 2021 Discharge Time: 13:44 Admission Diagnosis COVID19 UTI Pelvic mass Likely ovarian cancer Consults/Procedures Consulations OBGYN Discharge Diagnosis (1) COVID-19 virus infection Status: Acute (2) Mass of left ovary Status: Acute (3) Intractable nausea and vomiting Status: Acute (4) Urinary tract infection Status: Acute JOHNNY GROVES MD Oct 04, 2021 18:09
== END 2021-10-04 13:44 | disposition home or self-care (01) | DRG 178 ==
LOC: EDUNIT# 23:59 → ER 10-02 00:02 → 4TH 10-02 05:30
PROVIDERS: ADMIT Internal Medicine; ATTEND Internal Medicine
PROC: 8E0ZXY6 Isolation (ICD-10-PCS; principal; 2021-10-02)
DX: U07.1 COVID-19 (principal); C56.2 Malignant neoplasm of left ovary; N39.0 Urinary tract infection, site not specified; R11.2 Nausea with vomiting, unspecified; F17.210 Nicotine dependence, cigarettes, uncomplicated; E78.00 Pure hypercholesterolemia, unspecified; I10 Essential (primary) hypertension; E03.9 Hypothyroidism, unspecified; H40.9 Unspecified glaucoma; F32.A Depression, unspecified; R63.4 Abnormal weight loss; Z68.24 Body mass index [BMI] 24.0-24.9, adult
CPT/HCPCS: 36415; 71275; 74177; 76856; 80048; 80053; 80306; 81000; 82150; 82378; 83735; 85025; 86304; 87088; 87636; 93041

== ENCOUNTER 2022-03-15 10:50 | Outpatient (RCR) | payer BC, MEDICARE ==
[~2022-03-15 10:50] MED LIST changes: +ACYC5CRE8 TP; +LEVO50TA6 PO; +METO50TA7 PO; +MONT10TA21 PO; +NITR-65 PO; +OMEP40CA6 PO; +ROPI0.5T4 PO; +ROSU20TA32 PO; +SERT-414 PO; +TRAM50TA3 PO; +VALA10007 PO
== END 2022-03-19 | disposition home or self-care (01) ==
LOC: ONC 10:50
PROVIDERS: ATTEND Internal Medicine Hematology & Oncology
DX: C56.2 Malignant neoplasm of left ovary (principal)
CPT/HCPCS: 99204

== ENCOUNTER 2022-03-22 05:31 | Outpatient (CLI) | payer BC, MEDICARE ==
[~2022-03-22] VITALS: Ht 166 cm; Wt 66.3 kg
[~2022-03-22 05:31] MED LIST changes: -ACHD5005 PO
[2022-03-25] MEDS ORDERED: ACHD5005 PO (12:30)
== END 2022-03-23 16:17 | disposition home or self-care (01) ==
LOC: PREOP 05:31
PROVIDERS: ATTEND Surgery
DX: Z01.818 Encounter for other preprocedural examination (principal)

== ENCOUNTER → 2022-03-22 | Outpatient (CLI) | payer BC, MEDICARE ==
[~2022-03-22] MED LIST changes: +ACHD5005 PO
[2022-03-22 15:23] LABS: BASOPHILS # (AUTO) 0.1 10^3/uL (0.0-0.1); BASOPHILS % (AUTO) 1 % (0-10); EOSINOPHILS # (AUTO) 0.4 10^3/uL (0.0-0.3); EOSINOPHILS % (AUTO) 4 % (0-10); HEMATOCRIT 41 % (35-52); LYMPHOCYTES # (AUTO) 3.9 X 10^3 (1.0-4.0); LYMPHOCYTES % (AUTO) 40 % (12-44); MEAN CORPUSCULAR HEMOGLOBIN 30 pg (25-34); MEAN CORPUSCULAR HGB CONC 32 g/dL (32-36); MEAN CORPUSCULAR VOLUME 93 fL (80-99); MEAN PLATELET VOLUME 9.7 fL (9.0-12.2); MONOCYTES # (AUTO) 0.9 X 10^3 (0.0-1.0); MONOCYTES % (AUTO) 9 % (0-12); NEUTROPHILS # (AUTO) 4.4 X 10^3 (1.8-7.8); NEUTROPHILS % (AUTO) 46 % (42-75); PLATELET COUNT 368 10^3/uL (130-400); WHITE BLOOD COUNT 9.6 10^3/uL (4.3-11.0)
[2022-03-22 15:40] LABS: ALBUMIN 4.1 GM/DL (3.2-4.5); BILIRUBIN,TOTAL 0.3 MG/DL (0.1-1.0); CALCIUM 9.5 MG/DL (8.5-10.1); CREATININE SERUM 0.83 MG/DL (0.60-1.30); TOTAL PROTEIN 6.7 GM/DL (6.4-8.2)
== END ==
LOC: LABNPT 15:05
PROVIDERS: ATTEND Internal Medicine Hematology & Oncology
DX: C54.1 Malignant neoplasm of endometrium (principal)
CPT/HCPCS: 80053; 85025

== ENCOUNTER 2022-03-25 08:15 | Day surgery (SDC) | payer BC, MEDICARE ==
[~2022-03-25] VITALS: Ht 166 cm; Wt 66.3 kg
[2022-03-25] VITALS (8 sets, daily range): BP systolic 88–130; BP diastolic 60–69
[2022-03-25] MEDS ORDERED: LACTATED RINGERS 1,000 ML IV PRN (08:30)
[2022-03-25] MEDS ORDERED: ceFAZolin INJECTION 2,000 MG in NS (IVPB) 50 ML IV ONE (08:30)
[2022-03-25] MEDS ORDERED: 0.9% SODIUM CHLORIDE PF INJ 20 ML VIAL ONE (08:36)
[2022-03-25] MEDS ORDERED: HEParin (CENTRAL IV FLUSH) 500 UNIT/5 ML SYR ONE (08:36)
[2022-03-25] MEDS ORDERED: BUP/EPI 0.25% 1:200,000 (MARCAINE) 30 ML VIAL ONE (08:36)
[2022-03-25] MEDS ORDERED: HEParin (CENTRAL IV FLUSH) 500 UNIT/5 ML SYR IV ONE (08:41)
[2022-03-25] MEDS ORDERED: BUP/EPI 0.25% 1:200,000 (MARCAINE) 30 ML VIAL INJ ONE (08:43)
[2022-03-25] MEDS ORDERED: 0.9% SODIUM CHLORIDE PF INJ 20 ML VIAL IV ONE (08:44)
--- NOTE | 2022-03-25 09:57 | Progress Note-Pre Operative ---
Pre-Operative Progress Note Date of Available H&P: Mar 15, 2022 Date H&P Reviewed: Mar 25, 2022 Time H&P Reviewed: 09:36 History & Physical: H&P Reviewed, Patient Examed, No changes noted Pre-Operative Diagnosis: Ovarian CA, Venous insufficiency JUDAH REAGAN DO Mar 25, 2022 09:57
[2022-03-25] MEDS ORDERED: MIDAZOLAM 2 MG/2 ML (VERSED) VIAL ONE (11:44)
[2022-03-25] MEDS ORDERED: PROPOFOL INJECTION 50 ML IV ONE (11:44)
[2022-03-25] MEDS ORDERED: 0.9% SODIUM CHLORIDE PF INJ 20 ML VIAL IJ ONE (12:17)
--- NOTE | 2022-03-25 12:29 | Progress Note-Post Operative ---
Post-Operative Progess Note Surgeon (s)/Mental Hygienist (s) Surgeon JUDAH REAGAN DO Mental Hygienist: RAMYA Alicea Pre-Operative Diagnosis Ovarian CA, Venous insufficiency Post-Operative Diagnosis same Procedure & Operative Findings Date of Procedure 03/25/22 Procedure Performed/Findings PROCEDURE: [place]-Cath Placement The patient was taken to the operating suite, was prepped and draped in the sterile fashion. A surgical pause was performed. Local anesthetic was infiltrated at the clavicle and along the tract to the right anterior chest, where more local was placed so the pocket could be created. Using an 18 gauge finder needle with negative inspiration the right subclavian vein was accessed on the first attempt and dark nonpulsatile blood was withdrawn. The wire was inserted and fluoroscopy assured proper placement. The needle was removed. and the wire was then secured. A #11 blade scalpel was used to make an incision over the right chest and along guidewire. Cautery was used to dissect down to the pectoral fascia. A pocket was created with blunt dissection. The dilator sheath was then advanced over the wire under fluoroscopy and the dilator and wire were removed. The Groshong catheter was inserted through the sheath and the sheath was then removed. The Groshong wire was removed. The catheter was then tunneled to the right chest pocket. Fluoroscopy was used to cut to length and this was then attached to the port which was then placed within the pocket. The port was then accessed without difficulty. It was then flushed with saline and then heparin. The subcutaneous tissues were then reapproximated using 3-0 Vicryl. Finally the skin was closed with 4-0 undyed monocryl, 3 interrupted sutures. The areas were then washed and dried. Skin Affix was placed over incision. The insertion point of the neck Skin Affix was placed over the incision. The patient tolerated the procedure well without complication and was taken to recovery room in stable condition. Anesthesia Type IV sedation by PRODUCTION HONING MACHINE OPERATOR Estimated Blood Loss Estimated blood loss (mL): scant Specimens/Packing Specimens Removed none JUDAH REAGAN DO Mar 25, 2022 12:29
[2022-03-25] MEDS ORDERED: ACHD5005 PO (12:30)
--- NOTE | 2022-03-25 12:31 | Discharge Inst-Surgical ---
Discharge Inst-Surgical Depart Medication/Instructions New, Converted or Re-Newed RX: Transmitted to Pharmacy Patient Instructions Follow up Appt: Make appointment for 1 week. [phone] Instructions: May shower in 24 hours, no tub bath or soaking. Use incentive spirometer at home as directed. No Smoking Skin/Wound Care: May remove bandages in am. You need to leave the Dermabond on incision it will fall off on it's own. Symptoms to Report: Appetite Changes, Extremity Discoloration, Numbness/Tingling, Swelling Increased, Bleeding Excessive, Eyesight Changes, Pain Increased, Urine Color Change, Constipation(Persistent), Fever over 101 degree F, Pain/Pressure in chest, Urinating Difficulty, Cough Up/Vomit Blood, Heart Beat Irreg/Pounding, Pain/Pressure in jaw, Cramps in feet or legs, Lightheadedness, Pain/Pressure in shoulder, Diarrhea(Persistent), Memory Changes Suddenly, Questions/Concerns, Weight gain consecutive days, Dizziness/Fainting, Nausea/Vomiting, Shortness of Breath, Weight gain over 2 pounds If questions or concerns contact your physician Or seek help at emergency department. Activity Activity as Tolerated: Yes Activity Instructions: Avoid Stress to Incision Driving Instructions: No Driving/Refer to Diet Discharge Diet: No Restrictions Diet After 24 Hours: Clear Liquid if Nauseous If Any Problems/Questions/Issu: Contact Your Physician, Go to Emergency Room Skin/Wound Care Infection Signs and Symptoms: Increased Redness, Foul Odor of Wound, Increased Drainage, Skin Itchy or Has a Rash, Increased Swelling, Temperature Above 101 F Bathing Instructions: Shower Stitches/[place]/Dermabond Dis: JUDAH Pinto DO Mar 25, 2022 12:31
--- NOTE | 2022-03-25 13:34 | Diagnostic Imaging Report ---
Indication: Port-A-Cath placement. Fluoroscopic guidance. Comparison: None Total fluoroscopy time: 4 seconds Total number fluoroscopic images saved: 1 Findings: Multiple intraoperative image intensifier views of the chest were obtained during Port-A-Cath placement. Image provided shows right subclavian approach. Central tip terminates over the lower SVC. Evaluation for pneumothorax is suboptimal given fluoroscopic modality. Please note, interpreting radiologist was not present during the procedure. IMPRESSION: 1. Fluoroscopic guidance provided during Port-A-Cath placement. Dictated by: Dictated on workstation # [id number]
--- NOTE | 2022-03-25 13:38 | Anesthesia-General Post-Op ---
MAC Patient Condition Mental Status/LOC: Same as Preop Cardiovascular: Satisfactory Nausea/Vomiting: Absent Respiratory: Satisfactory Pain: Controlled Complications: Absent Post Op Complications Complications None Follow Up Care/Instructions Patient Instructions None needed. Anesthesiology Discharge Order Discharge Order Patient is doing well, no complaints, stable vital signs, no apparent adverse anesthesia problems. No complications reported per nursing. PHANI GARY CRNA Mar 25, 2022 13:38
== END 2022-03-25 14:10 | disposition home or self-care (01) ==
LOC: SDC 08:15
PROVIDERS: ATTEND Surgery
DX: C56.9 Malignant neoplasm of unspecified ovary (principal); I87.2 Venous insufficiency (chronic) (peripheral); F17.210 Nicotine dependence, cigarettes, uncomplicated; K21.9 Gastro-esophageal reflux disease without esophagitis; Z79.899 Other long term (current) drug therapy
CPT/HCPCS: 36561; 76000; 87081; C1788

== ENCOUNTER 2022-04-13 09:11 | Outpatient (RCR) | payer BC, MEDICARE ==
[2022-04-06 10:39] LABS: BASOPHILS # (AUTO) 0.1 10^3/uL (0.0-0.1); BASOPHILS % (AUTO) 1 % (0-10); EOSINOPHILS # (AUTO) 0.6 10^3/uL (0.0-0.3); EOSINOPHILS % (AUTO) 5 % (0-10); HEMATOCRIT 36 % (35-52); HEMOGLOBIN 12.1 g/dL (11.5-16.0); LYMPHOCYTES # (AUTO) 5.2 10^3/uL (1.0-4.0); LYMPHOCYTES % (AUTO) 41 % (12-44); MEAN CORPUSCULAR HEMOGLOBIN 31 pg (25-34); MEAN CORPUSCULAR HGB CONC 33 g/dL (32-36); MEAN CORPUSCULAR VOLUME 92 fL (80-99); MEAN PLATELET VOLUME 9.8 fL (9.0-12.2); MONOCYTES % (AUTO) 8 % (0-12); NEUTROPHILS # (AUTO) 5.8 10^3/uL (1.8-7.8); NEUTROPHILS % (AUTO) 46 % (42-75); PLATELET COUNT 263 10^3/uL (130-400); WHITE BLOOD COUNT 12.7 10^3/uL (4.3-11.0)
[2022-04-06 11:24] LABS: BILIRUBIN,TOTAL 0.2 MG/DL (0.1-1.0); CALCIUM 9.1 MG/DL (8.5-10.1); CREATININE SERUM 0.76 MG/DL (0.60-1.30); POTASSIUM 3.6 MMOL/L (3.6-5.0); TOTAL PROTEIN 6.5 GM/DL (6.4-8.2)
[~2022-04-13] VITALS: Ht 165.1 cm; Wt 65.8 kg
[~2022-04-13 09:11] MED LIST changes: +ACHD5005 PO; +CARBOPLATIN IV SCH; +CTR IV SCH; +D5W IV SCH; +FAMOTIDINE 20MG/2ML IV (PEPCID) IV PRN; +FOSAPREPITANT (CANCER CENTER) 150 MG in NS (IVPB) CANCER CENTER ONLY 150 ML IV SCH; +HEParin (CENTRAL IV FLUSH) 500 UNIT/5 ML SYR IV PRN; +NORMAL SALINE IV SCH; +NS IV 1000 ML (CANCER CTR) IV SCH; +NS IV SCH; +PACLITAXEL IV SCH; +PACLITAXEL PROTEIN BOUND IV SCH; +PALONOSETRON HCL IV SCH; +diphenhydrAMINE 25 MG TAB (BENADRYL) PO SCH; +diphenhydrAMINE 50 MG/ML INJ (BENADRYL) ONE; +methylPREDNISolone 125 MG (Solu-MEDROL) VIAL IV SCH
[2022-04-13 09:25] LABS: BASOPHILS % (AUTO) 1 % (0-10); EOSINOPHILS # (AUTO) 0.6 10^3/uL (0.0-0.3); EOSINOPHILS % (AUTO) 12 % (0-10); HEMATOCRIT 38 % (35-52); HEMOGLOBIN 12.7 g/dL (11.5-16.0); LYMPHOCYTES # (AUTO) 2.1 10^3/uL (1.0-4.0); LYMPHOCYTES % (AUTO) 39 % (12-44); MEAN CORPUSCULAR HEMOGLOBIN 31 pg (25-34); MEAN CORPUSCULAR HGB CONC 33 g/dL (32-36); MEAN CORPUSCULAR VOLUME 92 fL (80-99); MEAN PLATELET VOLUME 10.6 fL (9.0-12.2); MONOCYTES # (AUTO) 0.2 10^3/uL (0.0-1.0); MONOCYTES % (AUTO) 4 % (0-12); NEUTROPHILS # (AUTO) 2.3 10^3/uL (1.8-7.8); NEUTROPHILS % (AUTO) 44 % (42-75); PLATELET COUNT 214 10^3/uL (130-400); WHITE BLOOD COUNT 5.4 10^3/uL (4.3-11.0)
[2022-04-13 09:50] LABS: ALBUMIN 4.1 GM/DL (3.2-4.5); BILIRUBIN,TOTAL 0.5 MG/DL (0.1-1.0); CALCIUM 9.9 MG/DL (8.5-10.1); CREATININE SERUM 0.91 MG/DL (0.60-1.30); POTASSIUM 3.9 MMOL/L (3.6-5.0); TOTAL PROTEIN 7.1 GM/DL (6.4-8.2)
== END 2022-04-19 | disposition home or self-care (01) ==
LOC: ONC 09:11
PROVIDERS: ATTEND Internal Medicine Hematology & Oncology
DX: Z51.11 Encounter for antineoplastic chemotherapy (principal); C54.1 Malignant neoplasm of endometrium
CPT/HCPCS: 36415; 36591; 80053; 85025; 96360; 96361; 96367; 96375; 96413; 96415; 96417; 99213

== ENCOUNTER 2022-05-11 13:57 | Outpatient (RCR) | payer BC, MEDICARE ==
[2022-04-20 10:07] LABS: BASOPHILS # (AUTO) 0.1 10^3/uL (0.0-0.1); BASOPHILS % (AUTO) 1 % (0-10); EOSINOPHILS # (AUTO) 0.6 10^3/uL (0.0-0.3); EOSINOPHILS % (AUTO) 8 % (0-10); HEMATOCRIT 37 % (35-52); HEMOGLOBIN 11.9 g/dL (11.5-16.0); LYMPHOCYTES # (AUTO) 4.3 10^3/uL (1.0-4.0); LYMPHOCYTES % (AUTO) 61 % (12-44); MEAN CORPUSCULAR HEMOGLOBIN 30 pg (25-34); MEAN CORPUSCULAR HGB CONC 33 g/dL (32-36); MEAN CORPUSCULAR VOLUME 92 fL (80-99); MEAN PLATELET VOLUME 9.3 fL (9.0-12.2); MONOCYTES # (AUTO) 0.8 10^3/uL (0.0-1.0); MONOCYTES % (AUTO) 12 % (0-12); NEUTROPHILS # (AUTO) 1.3 10^3/uL (1.8-7.8); NEUTROPHILS % (AUTO) 18 % (42-75); PLATELET COUNT 275 10^3/uL (130-400); WHITE BLOOD COUNT 7.1 10^3/uL (4.3-11.0)
[2022-04-20 11:08] LABS: BILIRUBIN,TOTAL 0.2 MG/DL (0.1-1.0); CALCIUM 9.4 MG/DL (8.5-10.1); CREATININE SERUM 0.86 MG/DL (0.60-1.30); POTASSIUM 3.6 MMOL/L (3.6-5.0); TOTAL PROTEIN 6.4 GM/DL (6.4-8.2)
[2022-04-26 10:25] LABS: BASOPHILS # (AUTO) 0.1 10^3/uL (0.0-0.1); BASOPHILS % (AUTO) 1 % (0-10); EOSINOPHILS # (AUTO) 0.4 10^3/uL (0.0-0.3); EOSINOPHILS % (AUTO) 4 % (0-10); HEMATOCRIT 35 % (35-52); HEMOGLOBIN 11.6 g/dL (11.5-16.0); LYMPHOCYTES # (AUTO) 4.3 10^3/uL (1.0-4.0); LYMPHOCYTES % (AUTO) 38 % (12-44); MEAN CORPUSCULAR HEMOGLOBIN 30 pg (25-34); MEAN CORPUSCULAR HGB CONC 33 g/dL (32-36); MEAN CORPUSCULAR VOLUME 92 fL (80-99); MEAN PLATELET VOLUME 9.6 fL (9.0-12.2); MONOCYTES # (AUTO) 1.2 10^3/uL (0.0-1.0); MONOCYTES % (AUTO) 10 % (0-12); NEUTROPHILS # (AUTO) 5.3 10^3/uL (1.8-7.8); NEUTROPHILS % (AUTO) 47 % (42-75); PLATELET COUNT 272 10^3/uL (130-400); WHITE BLOOD COUNT 11.2 10^3/uL (4.3-11.0)
[2022-04-26 10:50] LABS: ALBUMIN 3.9 GM/DL (3.2-4.5); BILIRUBIN,TOTAL 0.3 MG/DL (0.1-1.0); CALCIUM 9.3 MG/DL (8.5-10.1); CREATININE SERUM 0.8 MG/DL (0.60-1.30); POTASSIUM 3.4 MMOL/L (3.6-5.0); TOTAL PROTEIN 6.7 GM/DL (6.4-8.2)
[2022-05-04 14:31] LABS: BASOPHILS % (AUTO) 1 % (0-10); MEAN CORPUSCULAR VOLUME 91 fL (80-99)
[2022-05-04 14:33] LABS: EOSINOPHILS # (AUTO) 0.5 10^3/uL (0.0-0.3); EOSINOPHILS % (AUTO) 9 % (0-10); HEMATOCRIT 36 % (35-52); LYMPHOCYTES % (AUTO) 60 % (12-44); MEAN CORPUSCULAR HEMOGLOBIN 30 pg (25-34); MEAN CORPUSCULAR HGB CONC 33 g/dL (32-36); MEAN PLATELET VOLUME 10.3 fL (9.0-12.2); MONOCYTES # (AUTO) 0.2 10^3/uL (0.0-1.0); MONOCYTES % (AUTO) 4 % (0-12); NEUTROPHILS # (AUTO) 1.2 10^3/uL (1.8-7.8); NEUTROPHILS % (AUTO) 25 % (42-75); PLATELET COUNT 120 10^3/uL (130-400); WHITE BLOOD COUNT 4.9 10^3/uL (4.3-11.0)
[~2022-05-11 13:57] MED LIST changes: -CTR IV SCH; -PACLITAXEL PROTEIN BOUND IV SCH; -diphenhydrAMINE 50 MG/ML INJ (BENADRYL) ONE
[2022-05-11 14:16] LABS: BASOPHILS % (AUTO) 1 % (0-10); EOSINOPHILS # (AUTO) 0.4 10^3/uL (0.0-0.3); EOSINOPHILS % (AUTO) 7 % (0-10); HEMATOCRIT 33 % (35-52); HEMOGLOBIN 11.2 g/dL (11.5-16.0); LYMPHOCYTES # (AUTO) 3.2 10^3/uL (1.0-4.0); LYMPHOCYTES % (AUTO) 62 % (12-44); MEAN CORPUSCULAR HEMOGLOBIN 31 pg (25-34); MEAN CORPUSCULAR HGB CONC 35 g/dL (32-36); MEAN CORPUSCULAR VOLUME 90 fL (80-99); MEAN PLATELET VOLUME 9.5 fL (9.0-12.2); MONOCYTES # (AUTO) 0.7 10^3/uL (0.0-1.0); MONOCYTES % (AUTO) 13 % (0-12); NEUTROPHILS # (AUTO) 0.9 10^3/uL (1.8-7.8); NEUTROPHILS % (AUTO) 17 % (42-75); PLATELET COUNT 181 10^3/uL (130-400); WHITE BLOOD COUNT 5.1 10^3/uL (4.3-11.0)
== END 2022-05-17 | disposition home or self-care (01) ==
LOC: ONC 13:57
PROVIDERS: ATTEND Internal Medicine Hematology & Oncology
DX: Z47.89 Encounter for other orthopedic aftercare (principal)
CPT/HCPCS: 36415; 36591; 80053; 85025; 96360; 96361; 96367; 96375; 96413; 96415; 96417

== ENCOUNTER 2022-06-15 13:12 | Outpatient (RCR) | payer BC, MEDICARE ==
[2022-05-18 10:00] LABS: BASOPHILS # (AUTO) 0.1 10^3/uL (0.0-0.1); BASOPHILS % (AUTO) 1 % (0-10); EOSINOPHILS # (AUTO) 0.3 10^3/uL (0.0-0.3); EOSINOPHILS % (AUTO) 3 % (0-10); HEMATOCRIT 32 % (35-52); HEMOGLOBIN 10.6 g/dL (11.5-16.0); LYMPHOCYTES % (AUTO) 49 % (12-44); MEAN CORPUSCULAR HEMOGLOBIN 30 pg (25-34); MEAN CORPUSCULAR HGB CONC 33 g/dL (32-36); MEAN CORPUSCULAR VOLUME 92 fL (80-99); MEAN PLATELET VOLUME 9.2 fL (9.0-12.2); MONOCYTES # (AUTO) 0.8 10^3/uL (0.0-1.0); MONOCYTES % (AUTO) 8 % (0-12); NEUTROPHILS # (AUTO) 4.1 10^3/uL (1.8-7.8); NEUTROPHILS % (AUTO) 40 % (42-75); PLATELET COUNT 246 10^3/uL (130-400); WHITE BLOOD COUNT 10.2 10^3/uL (4.3-11.0)
[2022-05-18 10:17] LABS: ALBUMIN 3.5 GM/DL (3.2-4.5); BILIRUBIN,TOTAL 0.2 MG/DL (0.1-1.0); CALCIUM 8.4 MG/DL (8.5-10.1); CREATININE SERUM 0.7 MG/DL (0.60-1.30); POTASSIUM 3.2 MMOL/L (3.6-5.0); TOTAL PROTEIN 5.7 GM/DL (6.4-8.2)
[2022-05-25 14:37] LABS: BASOPHILS % (AUTO) 1 % (0-10); EOSINOPHILS # (AUTO) 0.2 10^3/uL (0.0-0.3); EOSINOPHILS % (AUTO) 5 % (0-10); HEMATOCRIT 33 % (35-52); HEMOGLOBIN 11.3 g/dL (11.5-16.0); LYMPHOCYTES # (AUTO) 2.6 10^3/uL (1.0-4.0); LYMPHOCYTES % (AUTO) 60 % (12-44); MEAN CORPUSCULAR HEMOGLOBIN 31 pg (25-34); MEAN CORPUSCULAR HGB CONC 34 g/dL (32-36); MEAN CORPUSCULAR VOLUME 91 fL (80-99); MEAN PLATELET VOLUME 9.6 fL (9.0-12.2); MONOCYTES # (AUTO) 0.1 10^3/uL (0.0-1.0); MONOCYTES % (AUTO) 3 % (0-12); NEUTROPHILS # (AUTO) 1.3 10^3/uL (1.8-7.8); NEUTROPHILS % (AUTO) 30 % (42-75); PLATELET COUNT 166 10^3/uL (130-400); WHITE BLOOD COUNT 4.3 10^3/uL (4.3-11.0)
[2022-06-01 14:16] LABS: BASOPHILS % (AUTO) 1 % (0-10); EOSINOPHILS # (AUTO) 0.1 10^3/uL (0.0-0.3); EOSINOPHILS % (AUTO) 2 % (0-10); HEMATOCRIT 33 % (35-52); HEMOGLOBIN 11.1 g/dL (11.5-16.0); LYMPHOCYTES # (AUTO) 3.9 10^3/uL (1.0-4.0); LYMPHOCYTES % (AUTO) 65 % (12-44); MEAN CORPUSCULAR HEMOGLOBIN 31 pg (25-34); MEAN CORPUSCULAR HGB CONC 34 g/dL (32-36); MEAN CORPUSCULAR VOLUME 90 fL (80-99); MEAN PLATELET VOLUME 9.6 fL (9.0-12.2); MONOCYTES # (AUTO) 0.8 10^3/uL (0.0-1.0); MONOCYTES % (AUTO) 13 % (0-12); NEUTROPHILS # (AUTO) 1.2 10^3/uL (1.8-7.8); NEUTROPHILS % (AUTO) 20 % (42-75); PLATELET COUNT 184 10^3/uL (130-400); WHITE BLOOD COUNT 6.1 10^3/uL (4.3-11.0)
[2022-06-08 09:52] LABS: BASOPHILS # (AUTO) 0.1 10^3/uL (0.0-0.1); BASOPHILS % (AUTO) 1 % (0-10); EOSINOPHILS # (AUTO) 0.2 10^3/uL (0.0-0.3); EOSINOPHILS % (AUTO) 2 % (0-10); HEMATOCRIT 31 % (35-52); HEMOGLOBIN 10.6 g/dL (11.5-16.0); LYMPHOCYTES # (AUTO) 5.1 10^3/uL (1.0-4.0); LYMPHOCYTES % (AUTO) 53 % (12-44); MEAN CORPUSCULAR HEMOGLOBIN 31 pg (25-34); MEAN CORPUSCULAR HGB CONC 34 g/dL (32-36); MEAN CORPUSCULAR VOLUME 91 fL (80-99); MEAN PLATELET VOLUME 9.6 fL (9.0-12.2); MONOCYTES # (AUTO) 1.1 10^3/uL (0.0-1.0); MONOCYTES % (AUTO) 11 % (0-12); NEUTROPHILS % (AUTO) 32 % (42-75); PLATELET COUNT 141 10^3/uL (130-400); WHITE BLOOD COUNT 9.5 10^3/uL (4.3-11.0)
[2022-06-08 10:14] LABS: ALBUMIN 4.1 GM/DL (3.2-4.5); BILIRUBIN,TOTAL 0.2 MG/DL (0.1-1.0); CALCIUM 9.6 MG/DL (8.5-10.1); CREATININE SERUM 0.86 MG/DL (0.60-1.30); POTASSIUM 3.5 MMOL/L (3.6-5.0); TOTAL PROTEIN 6.6 GM/DL (6.4-8.2)
[~2022-06-15] VITALS: Ht 165.1 cm; Wt 65.8 kg
[~2022-06-15 13:12] MED LIST changes: +MONT-47 PO; -MONT10TA21 PO
[2022-06-15 13:38] LABS: BASOPHILS % (AUTO) 0 % (0-10); HEMOGLOBIN 10.5 g/dL (11.5-16.0)
[2022-06-15 13:40] LABS: EOSINOPHILS # (AUTO) 0.3 10^3/uL (0.0-0.3); EOSINOPHILS % (AUTO) 6 % (0-10); HEMATOCRIT 31 % (35-52); LYMPHOCYTES % (AUTO) 60 % (12-44); MEAN CORPUSCULAR HEMOGLOBIN 31 pg (25-34); MEAN CORPUSCULAR HGB CONC 34 g/dL (32-36); MEAN CORPUSCULAR VOLUME 92 fL (80-99); MEAN PLATELET VOLUME 10.7 fL (9.0-12.2); MONOCYTES # (AUTO) 0.1 10^3/uL (0.0-1.0); MONOCYTES % (AUTO) 2 % (0-12); NEUTROPHILS # (AUTO) 1.6 10^3/uL (1.8-7.8); NEUTROPHILS % (AUTO) 32 % (42-75); PLATELET COUNT 90 10^3/uL (130-400); WHITE BLOOD COUNT 5.1 10^3/uL (4.3-11.0)
[2022-06-15 14:13] LABS: BILIRUBIN,TOTAL 0.4 MG/DL (0.1-1.0); CALCIUM 9.3 MG/DL (8.5-10.1); CREATININE SERUM 0.75 MG/DL (0.60-1.30); POTASSIUM 3.5 MMOL/L (3.6-5.0); TOTAL PROTEIN 6.2 GM/DL (6.4-8.2)
== END 2022-06-17 | disposition home or self-care (01) ==
LOC: ONC 13:12
PROVIDERS: ATTEND Internal Medicine Hematology & Oncology
DX: Z51.11 Encounter for antineoplastic chemotherapy (principal); Z45.2 Encounter for adjustment and management of vascular access device; C79.60 Secondary malignant neoplasm of unspecified ovary
CPT/HCPCS: 36415; 36591; 80053; 85025; 96360; 96361; 96367; 96375; 96413; 96415; 96417

== ENCOUNTER 2022-07-05 19:37 | Emergency (ER) | payer BC, MEDICARE ==
[~2022-07-05] VITALS: Ht 167 cm; Wt 63.5 kg
[~2022-07-05 19:37] MED LIST changes: -CARBOPLATIN IV SCH; -D5W IV SCH; -FAMOTIDINE 20MG/2ML IV (PEPCID) IV PRN; -FOSAPREPITANT (CANCER CENTER) 150 MG in NS (IVPB) CANCER CENTER ONLY 150 ML IV SCH; -HEParin (CENTRAL IV FLUSH) 500 UNIT/5 ML SYR IV PRN; -NORMAL SALINE IV SCH; -NS IV 1000 ML (CANCER CTR) IV SCH; -NS IV SCH; -PACLITAXEL IV SCH; -PALONOSETRON HCL IV SCH; -diphenhydrAMINE 25 MG TAB (BENADRYL) PO SCH; -methylPREDNISolone 125 MG (Solu-MEDROL) VIAL IV SCH
[2022-07-05] MEDS ORDERED: ONDANSETRON 4 MG/2 ML (SDV) Z0FRAN IVP ONE (20:30)
[2022-07-05] MEDS ORDERED: LACTATED RINGERS 1,000 ML IV ONE (20:30)
[2022-07-05] MEDS ORDERED: diphenhydrAMINE 50 MG/ML INJ (BENADRYL) IVP ONE (20:45)
[2022-07-05] MEDS ORDERED: PANTOPRAZOLE 40 MG (PROTONIX) VIAL IV ONE (20:45)
[2022-07-05] MEDS ORDERED: PROMETHAZINE INJ 25 MG/ML (PHENERGAN) AMP IVP ONE (20:45)
--- NOTE | 2022-07-05 21:15 | ED GI ---
General Chief Complaint: Abdominal/GI Problems Stated Complaint: NAUSEA|VOMITING Nursing Triage Note: PT PRESENTS TO ED WITH C/O N/V THAT BEGAN YESTERDAY. PT IS A CANCER PT AND LAST CHEMO WAS 1 WEEK AGO. PT TRIED ZOFRAN AT HOME BUT IT DIDN'T HELP SX. Source of Information: Other (FEMALE S.O. DOES ALL TALKING FOR PT AND TRIES TO DICTATE AND MICROMANAGE EVERY ASPECT OF PT'S CARE--TELLING ME AND RN'S WHAT TO DO AND HOW TO DO IT. ) History of Present Illness Date Seen by Provider: Jul 05, 2022 Time Seen by Provider: 20:15 Initial Comments PT ARRIVES VIA POV FROM HOME WITH FEMALE S.O. Allergies and Home Medications Allergies Coded Allergies: coconut (Verified Allergy, Severe, Anaphylaxis, 03/23/22) dexamethasone (Unverified Allergy, Intermediate, SWELLING, 03/23/22) Patient Home Medication List Hydrocodone Bit/Acetaminophen (HYDROcodone/APAP 5 MG/325 MG TAB) 1 Tab Tab, 1 TAB PO Q8H PRN for PAIN-MODERATE (5-7) Prescribed by: JUDAH REAGAN on 03/25/22 1230 Levothyroxine Sodium (Levothyroxine Sodium) 50 Mcg Tablet, 50 MCG PO DAILY Prescribed by: MICA BUENROSTRO on 10/02/21 1057 Metoprolol Succinate (Metoprolol Succinate) 50 Mg Tab.er.24h, 50 MG PO DAILY Prescribed by: MICA BUENROSTRO on 10/02/21 1057 Montelukast Sodium (Singulair) 10 Mg Tablet, 10 MG PO DAILY PRN Prescribed by: MICA BUENROSTRO on 10/02/21 105 Omeprazole (Omeprazole) 40 Mg Capsule.dr, 40 MG PO DAILY Prescribed by: MICA BUENROSTRO on 10/02/21 1057 Ropinirole HCl (Ropinirole HCl) 0.5 Mg Tablet, 0.5 MG PO HS Prescribed by: MICA BUENROSTRO on 10/02/21 1057 Rosuvastatin Calcium (Rosuvastatin Calcium) 20 Mg Tablet, 20 MG PO HS Prescribed by: MICA BUENROSTRO on 10/02/21 1057 Sertraline HCl (Sertraline HCl) 100 Mg Tablet, 100 MG PO DAILY Prescribed by: MICA BUENROSTRO on 10/02/21 1057 Past Kwzkguq-Zqwhbz-Zvziir Hx Immunizations Up To Date First/Initial COVID19 Vaccinat: 2020 Second COVID19 Vaccination Monster: 2020 Third COVID19 Vaccination Date: 2021 Seasonal Allergies Seasonal Allergies: No Past Medical History Surgery/Hospitalization HX: dentures not with patient, glasses with patient on admission Surgeries: Yes (ORAL SURGERY, COMPLETE HYSTERECTOMY) Gallbladder Respiratory: No Cardiac: Yes High Cholesterol, Hypertension 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: Menopausal Genitourinary: No Gastrointestinal: No Musculoskeletal: No Endocrine: Yes Hypothyroidsim HEENT: Yes Cataract, Glaucoma Cancer: Yes Ovarian What Type of Treatment Did You: Surgical Intervention Psychosocial: No Integumentary: No Blood Disorders: No Family Medical History No Pertinent Family Hx SOCIAL HISTORY: SMOKES 1 PPD ETOH--USED TO DRINK MODERATE TO HEAVILY--NONE FOR A FEW YEARS THC ON REGULAR BASIS, NONE FOR 3 WEEKS Physical Exam Vital Signs Vital Signs - First Documented 07/05/22 20:09 Temp 36.2 Pulse 108 Resp 26 B/P (MAP) 139/70 (93) Pulse Ox 96 O2 Delivery Room Air Capillary Refill : Height/Weight/BMI Height: 5'5.00" Weight: 160lbs. oz. 72.220587hx; 22.00 BMI Method:Stated Focused Exam Lactate Level 07/05/22 21:00: Lactic Acid Level 1.68 Lactic Acid Level Laboratory Tests Test 07/05/22 21:00 Lactic Acid Level 1.68 MMOL/L (0.50-2.00) Progress/Results/Core Measures Results/Orders Lab Results Laboratory Tests Test 07/05/22 21:00 Range/Units White Blood Count 3.4 L 4.3-11.0 10^3/uL Red Blood Count 3.59 L 3.80-5.11 10^6/uL Hemoglobin 11.4 L 11.5-16.0 g/dL Hematocrit 33 L 35-52 % Mean Corpuscular Volume 92 80-99 fL Mean Corpuscular Hemoglobin 32 25-34 pg Mean Corpuscular Hemoglobin Concent 35 32-36 g/dL Red Cell Distribution Width 16.0 H 10.0-14.5 % Platelet Count 118 L 130-400 10^3/uL Mean Platelet Volume 10.7 9.0-12.2 fL Immature Granulocyte % (Auto) 1 % Neutrophils (%) (Auto) 72 42-75 % Lymphocytes (%) (Auto) 25 12-44 % Monocytes (%) (Auto) 2 0-12 % Eosinophils (%) (Auto) 1 0-10 % Basophils (%) (Auto) 0 0-10 % Neutrophils # (Auto) 2.4 1.8-7.8 10^3/uL Lymphocytes # (Auto) 0.8 L 1.0-4.0 10^3/uL Monocytes # (Auto) 0.1 0.0-1.0 10^3/uL Eosinophils # (Auto) 0.0 0.0-0.3 10^3/uL Basophils # (Auto) 0.0 0.0-0.1 10^3/uL Immature Granulocyte # (Auto) 0.0 0.0-0.1 10^3/uL Percent Immature Platelet Fraction 3.4 0.0-7.6 % Erythrocyte Sedimentation Rate 32 H 0-30 MM/HR Prothrombin Time 13.7 12.2-14.7 SEC INR Comment 1.0 0.8-1.4 Activated Partial Thromboplast Time 25 24-35 SEC Sodium Level 138 135-145 MMOL/L Potassium Level 3.4 L 3.6-5.0 MMOL/L Chloride Level 103 98-107 MMOL/L Carbon Dioxide Level 18 L 21-32 MMOL/L Anion Gap 17 H 5-14 MMOL/L Blood Urea Nitrogen 22 H 7-18 MG/DL Creatinine 0.80 0.60-1.30 MG/DL Estimat Glomerular Filtration Rate 82 BUN/Creatinine Ratio 28 Glucose Level 168 H 70-105 MG/DL Lactic Acid Level 1.68 0.50-2.00 MMOL/L Calcium Level 9.6 8.5-10.1 MG/DL Corrected Calcium 9.3 8.5-10.1 MG/DL Magnesium Level 1.3 L 1.6-2.4 MG/DL Total Bilirubin 0.5 0.1-1.0 MG/DL Aspartate Amino Transf (AST/SGOT) 22 5-34 U/L Alanine Aminotransferase (ALT/SGPT) 17 0-55 U/L Alkaline Phosphatase 104 40-136 U/L C-Reactive Protein High Sensitivity 0.47 0.00-0.50 MG/DL Total Protein 6.9 6.4-8.2 GM/DL Albumin 4.4 3.2-4.5 GM/DL Amylase Level 65 25-125 U/L Lipase 13 8-78 U/L Smear Scan YES My Orders Orders - DOUG SANTIZO DO Ed Iv/Invasive Line Start (07/05/22 20:16) Ekg Tracing (07/05/22 20:16) Monitor-Rhythm Ecg Trace Only (07/05/22 20:16) Amylase (07/05/22 20:16) Cbc With Automated Diff (07/05/22 20:16) Comprehensive Metabolic Panel (07/05/22 20:16) Hs C Reactive Protein (07/05/22 20:16) Lipase (07/05/22 20:16) Magnesium (07/05/22 20:16) Ua Culture If Indicated (07/05/22 20:16) Erythrocyte Sedimentation Rate (07/05/22 20:16) Ondansetron Injection (Zofran Injectio (07/05/22 20:30) Ed Iv/Invasive Line Start (07/05/22 20:16) Lactated Ringers (Lr 1000 Ml Iv Solution (07/05/22 20:30) Promethazine Injection (Phenergan Injec (07/05/22 20:45) Diphenhydramine Injection (Benadryl Inje (07/05/22 20:45) Pantoprazole Injection (Protonix Injecti (07/05/22 20:45) Covid 19 Inhouse Test (07/05/22 20:31) Influenza A And B By Pcr (07/05/22 20:31) Isolation Central Supply Req (07/05/22 20:31) Blood Culture (07/05/22 20:31) Urine Culture (07/05/22 20:31) Protime With Inr (07/05/22 20:31) Partial Thromboplastin Time (07/05/22 20:31) Ed Iv/Invasive Line Start (07/05/22 20:31) Vital Signs Adult Sepsis Patie Q15M (07/05/22 20:31) O2 (07/05/22 20:31) Remove Rings In Anticipation O (07/05/22 20:31) Lactic Acid Analyzer (07/05/22 20:31) Drug Screen Stat (Urine) (07/05/22 21:15) Medications Given in ED Current Medications Medications Dose Ordered Sig/River Route Start Time Stop Time Status Last Admin Dose Admin Diphenhydramine HCl 25 mg ONCE ONCE IVP 07/05/22 20:45 07/05/22 20:46 DC 07/05/22 21:03 25 MG Lactated Ringer's 1,000 ml @ 0 mls/hr Q0M ONCE IV 07/05/22 20:30 07/05/22 20:31 DC 07/05/22 21:02 1,000 MLS/HR Ondansetron HCl 4 mg ONCE ONCE IVP 07/05/22 20:30 07/05/22 20:31 DC 07/05/22 21:00 4 MG Pantoprazole 40 mg ONCE ONCE IV 07/05/22 20:45 07/05/22 20:46 DC 07/05/22 21:02 40 MG Promethazine HCl 50 mg ONCE ONCE IVP 07/05/22 20:45 07/05/22 20:46 DC 07/05/22 21:02 50 MG Vital Signs/I&O 07/05/22 20:09 Temp 36.2 Pulse 108 Resp 26 B/P (MAP) 139/70 (93) Pulse Ox 96 O2 Delivery Room Air Blood Pressure Mean: 93 Departure Impression Primary Impression: Intractable nausea and vomiting Additional Impressions: Ovarian cancer CHEMOTHERAPY Disposition: HOME, SELF-CARE Condition: Improved Departure-Patient Inst. Decision time for Depature: 22:35 Referrals: MITCH STEIN MD (PCP/Family) Primary Care Physician Patient Instructions: Nausea and Vomiting, Adult ED Add. Discharge Instructions: CONTINUE YOUR REGULAR MEDICATIONS PRESCRIBED YOU MAY TAKE ZOFRAN EVERY 4 HOURS NEEDED FOR NAUSEA FOLLOW UP WITH DR. STEIN OR YOUR ONCOLOGIST IF SYMPTOMS PERSIST All discharge instructions reviewed with patient and/or family. Voiced understanding. Scripts Promethazine HCl (Promethazine Suppository) 25 Mg Supp.rect 25 MG RC Q6 for Nausea/Vomiting, #10 SUPP.RECT Prov: DOUG SANTIZO DO 07/05/22 DOUG SANTIZO DO Jul 05, 2022 21:15
[2022-07-05 21:26] LABS: BASOPHILS % (AUTO) 0 % (0-10); EOSINOPHILS % (AUTO) 1 % (0-10); HEMATOCRIT 33 % (35-52); MEAN CORPUSCULAR VOLUME 92 fL (80-99)
[2022-07-05 21:28] LABS: HEMOGLOBIN 11.4 g/dL (11.5-16.0); LYMPHOCYTES # (AUTO) 0.8 10^3/uL (1.0-4.0); LYMPHOCYTES % (AUTO) 25 % (12-44); MEAN CORPUSCULAR HEMOGLOBIN 32 pg (25-34); MEAN CORPUSCULAR HGB CONC 35 g/dL (32-36); MEAN PLATELET VOLUME 10.7 fL (9.0-12.2); MONOCYTES # (AUTO) 0.1 10^3/uL (0.0-1.0); MONOCYTES % (AUTO) 2 % (0-12); NEUTROPHILS # (AUTO) 2.4 10^3/uL (1.8-7.8); NEUTROPHILS % (AUTO) 72 % (42-75); PLATELET COUNT 118 10^3/uL (130-400); WHITE BLOOD COUNT 3.4 10^3/uL (4.3-11.0)
[2022-07-05 21:42] LABS: ALBUMIN 4.4 GM/DL (3.2-4.5); POTASSIUM 3.4 MMOL/L (3.6-5.0)
[2022-07-05 21:43] LABS: CALCIUM 9.6 MG/DL (8.5-10.1)
[2022-07-05 21:44] LABS: PROTHROMBIN TIME PATIENT 13.7 SEC (12.2-14.7)
[2022-07-05 21:45] LABS: TOTAL PROTEIN 6.9 GM/DL (6.4-8.2)
[2022-07-05 21:49] LABS: CREATININE SERUM 0.8 MG/DL (0.60-1.30)
[2022-07-05 21:51] LABS: MAGNESIUM 1.3 MG/DL (1.6-2.4)
[2022-07-05 22:09] LABS: BILIRUBIN,TOTAL 0.5 MG/DL (0.1-1.0)
[2022-07-05 22:14] LABS: ERYTHROCYTE SEDIMENTATION RATE 32 MM/HR (0-30); SMEAR SCAN COMMENT YES
[2022-07-05] MEDS ORDERED: PROM25SU44 RC (22:40)
[2022-07-05] MEDS ORDERED: RX-PHENERGAN 25 MG SUPP PPK#3 PR STA (22:41)
[2022-07-05 23:01] VITALS: BP 148/74
== END 2022-07-05 23:01 | disposition home or self-care (01) ==
LOC: EDUNIT# 19:37 → ER 19:39
DX: C56.9 Malignant neoplasm of unspecified ovary (principal); R11.10 Vomiting, unspecified; F17.210 Nicotine dependence, cigarettes, uncomplicated; Z79.899 Other long term (current) drug therapy
CPT/HCPCS: 36415; 80053; 82150; 83605; 83690; 83735; 85025; 85610; 85652; 85730; 86141; 87040; 87077; 93005; 93041

== ENCOUNTER 2022-07-13 13:54 | Outpatient (RCR) | payer BC, MEDICARE ==
[2022-06-22 14:18] LABS: BASOPHILS % (AUTO) 0 % (0-10); EOSINOPHILS # (AUTO) 0.3 10^3/uL (0.0-0.3); EOSINOPHILS % (AUTO) 4 % (0-10); HEMATOCRIT 30 % (35-52); HEMOGLOBIN 10.2 g/dL (11.5-16.0); LYMPHOCYTES # (AUTO) 3.9 10^3/uL (1.0-4.0); LYMPHOCYTES % (AUTO) 68 % (12-44); MEAN CORPUSCULAR HEMOGLOBIN 31 pg (25-34); MEAN CORPUSCULAR HGB CONC 34 g/dL (32-36); MEAN CORPUSCULAR VOLUME 91 fL (80-99); MEAN PLATELET VOLUME 10.1 fL (9.0-12.2); MONOCYTES # (AUTO) 0.6 10^3/uL (0.0-1.0); MONOCYTES % (AUTO) 10 % (0-12); NEUTROPHILS # (AUTO) 0.9 10^3/uL (1.8-7.8); NEUTROPHILS % (AUTO) 16 % (42-75); PLATELET COUNT 113 10^3/uL (130-400); WHITE BLOOD COUNT 5.7 10^3/uL (4.3-11.0)
[2022-06-22 14:37] LABS: ALBUMIN 4.1 GM/DL (3.2-4.5); BILIRUBIN,TOTAL 0.3 MG/DL (0.1-1.0); CALCIUM 9.4 MG/DL (8.5-10.1); CREATININE SERUM 0.82 MG/DL (0.60-1.30); POTASSIUM 3.8 MMOL/L (3.6-5.0); TOTAL PROTEIN 6.6 GM/DL (6.4-8.2)
[2022-06-29 10:00] LABS: BASOPHILS # (AUTO) 0.1 10^3/uL (0.0-0.1); BASOPHILS % (AUTO) 1 % (0-10); EOSINOPHILS # (AUTO) 0.2 10^3/uL (0.0-0.3); EOSINOPHILS % (AUTO) 2 % (0-10); HEMATOCRIT 29 % (35-52); HEMOGLOBIN 9.8 g/dL (11.5-16.0); LYMPHOCYTES # (AUTO) 4.7 10^3/uL (1.0-4.0); LYMPHOCYTES % (AUTO) 59 % (12-44); MEAN CORPUSCULAR HEMOGLOBIN 32 pg (25-34); MEAN CORPUSCULAR HGB CONC 34 g/dL (32-36); MEAN CORPUSCULAR VOLUME 93 fL (80-99); MEAN PLATELET VOLUME 9.9 fL (9.0-12.2); MONOCYTES # (AUTO) 0.8 10^3/uL (0.0-1.0); MONOCYTES % (AUTO) 10 % (0-12); NEUTROPHILS # (AUTO) 2.3 10^3/uL (1.8-7.8); NEUTROPHILS % (AUTO) 29 % (42-75); PLATELET COUNT 150 10^3/uL (130-400)
[2022-06-29 10:21] LABS: ALBUMIN 4.1 GM/DL (3.2-4.5); BILIRUBIN,TOTAL 0.3 MG/DL (0.1-1.0); CALCIUM 9.4 MG/DL (8.5-10.1); CREATININE SERUM 0.82 MG/DL (0.60-1.30); POTASSIUM 3.5 MMOL/L (3.6-5.0); TOTAL PROTEIN 6.4 GM/DL (6.4-8.2)
[2022-07-07 12:56] LABS: BASOPHILS % (AUTO) 0 % (0-10); HEMOGLOBIN 10.3 g/dL (11.5-16.0)
[2022-07-07 12:58] LABS: EOSINOPHILS % (AUTO) 1 % (0-10); HEMATOCRIT 30 % (35-52); LYMPHOCYTES # (AUTO) 3.1 10^3/uL (1.0-4.0); LYMPHOCYTES % (AUTO) 56 % (12-44); MEAN CORPUSCULAR HEMOGLOBIN 32 pg (25-34); MEAN CORPUSCULAR HGB CONC 35 g/dL (32-36); MEAN CORPUSCULAR VOLUME 92 fL (80-99); MEAN PLATELET VOLUME 10.2 fL (9.0-12.2); MONOCYTES # (AUTO) 0.3 10^3/uL (0.0-1.0); MONOCYTES % (AUTO) 6 % (0-12); NEUTROPHILS % (AUTO) 37 % (42-75); PLATELET COUNT 137 10^3/uL (130-400); WHITE BLOOD COUNT 5.5 10^3/uL (4.3-11.0)
[2022-07-07 13:13] LABS: ALBUMIN 4.5 GM/DL (3.2-4.5); BILIRUBIN,TOTAL 0.6 MG/DL (0.1-1.0); CALCIUM 9.8 MG/DL (8.5-10.1); CREATININE SERUM 1.08 MG/DL (0.60-1.30); MAGNESIUM 1.2 MG/DL (1.6-2.4); POTASSIUM 3.1 MMOL/L (3.6-5.0); TOTAL PROTEIN 7.2 GM/DL (6.4-8.2)
[~2022-07-13 13:54] MED LIST changes: +CARBOPLATIN IV SCH; +D5W IV SCH; +FAMOTIDINE 20MG/2ML IV (PEPCID) IV PRN; +FOSAPREPITANT (CANCER CENTER) 150 MG in NS (IVPB) CANCER CENTER ONLY 150 ML IV SCH; +HEParin (CENTRAL IV FLUSH) 500 UNIT/5 ML SYR IV PRN; +NORMAL SALINE IV SCH; +NS IV 1000 ML (CANCER CTR) IV SCH; +NS IV SCH; +PACLITAXEL IV SCH; +PALONOSETRON HCL IV SCH; +PROM25SU44 RC; +diphenhydrAMINE 25 MG TAB (BENADRYL) PO SCH; +methylPREDNISolone 125 MG (Solu-MEDROL) VIAL IV SCH
[2022-07-13 14:16] LABS: BASOPHILS % (AUTO) 0 % (0-10); EOSINOPHILS # (AUTO) 0.1 10^3/uL (0.0-0.3); EOSINOPHILS % (AUTO) 2 % (0-10); HEMATOCRIT 28 % (35-52); HEMOGLOBIN 9.4 g/dL (11.5-16.0); LYMPHOCYTES # (AUTO) 4.7 10^3/uL (1.0-4.0); LYMPHOCYTES % (AUTO) 72 % (12-44); MEAN CORPUSCULAR HEMOGLOBIN 33 pg (25-34); MEAN CORPUSCULAR HGB CONC 34 g/dL (32-36); MEAN CORPUSCULAR VOLUME 96 fL (80-99); MEAN PLATELET VOLUME 9.6 fL (9.0-12.2); MONOCYTES # (AUTO) 0.8 10^3/uL (0.0-1.0); MONOCYTES % (AUTO) 12 % (0-12); NEUTROPHILS # (AUTO) 0.9 10^3/uL (1.8-7.8); NEUTROPHILS % (AUTO) 14 % (42-75); PLATELET COUNT 130 10^3/uL (130-400); WHITE BLOOD COUNT 6.5 10^3/uL (4.3-11.0)
[2022-07-13 14:33] LABS: ALBUMIN 4.2 GM/DL (3.2-4.5); BILIRUBIN,TOTAL 0.3 MG/DL (0.1-1.0); CALCIUM 9.3 MG/DL (8.5-10.1); CREATININE SERUM 0.87 MG/DL (0.60-1.30); POTASSIUM 3.8 MMOL/L (3.6-5.0); TOTAL PROTEIN 6.6 GM/DL (6.4-8.2)
== END 2022-07-17 | disposition home or self-care (01) ==
LOC: ONC 13:54
PROVIDERS: ATTEND Internal Medicine Hematology & Oncology
DX: Z51.11 Encounter for antineoplastic chemotherapy (principal); C56.9 Malignant neoplasm of unspecified ovary
CPT/HCPCS: 36415; 36591; 80053; 83735; 85025; 96360; 96361; 96367; 96375; 96413; 96415; 96417

== ENCOUNTER 2022-08-10 11:40 | Outpatient (RCR) | payer BC, OTHER ==
[2022-07-20 11:32] LABS: BASOPHILS % (AUTO) 1 % (0-10); EOSINOPHILS # (AUTO) 0.1 10^3/uL (0.0-0.3); EOSINOPHILS % (AUTO) 1 % (0-10); HEMATOCRIT 27 % (35-52); LYMPHOCYTES # (AUTO) 4.3 10^3/uL (1.0-4.0); LYMPHOCYTES % (AUTO) 49 % (12-44); MEAN CORPUSCULAR HEMOGLOBIN 33 pg (25-34); MEAN CORPUSCULAR HGB CONC 33 g/dL (32-36); MEAN CORPUSCULAR VOLUME 98 fL (80-99); MEAN PLATELET VOLUME 9.6 fL (9.0-12.2); MONOCYTES # (AUTO) 0.9 10^3/uL (0.0-1.0); MONOCYTES % (AUTO) 10 % (0-12); NEUTROPHILS # (AUTO) 3.4 10^3/uL (1.8-7.8); NEUTROPHILS % (AUTO) 39 % (42-75); PLATELET COUNT 102 10^3/uL (130-400); WHITE BLOOD COUNT 8.7 10^3/uL (4.3-11.0)
[2022-07-20 11:36] LABS: ALBUMIN 4.1 GM/DL (3.2-4.5); BILIRUBIN,TOTAL 0.2 MG/DL (0.1-1.0); CREATININE SERUM 0.78 MG/DL (0.60-1.30); POTASSIUM 3.7 MMOL/L (3.6-5.0); TOTAL PROTEIN 6.5 GM/DL (6.4-8.2)
[2022-07-27 13:53] LABS: MEAN CORPUSCULAR VOLUME 96 fL (80-99)
[2022-07-27 13:56] LABS: BASOPHILS % (AUTO) 0 % (0-10); EOSINOPHILS # (AUTO) 0.1 10^3/uL (0.0-0.3); EOSINOPHILS % (AUTO) 3 % (0-10); HEMATOCRIT 26 % (35-52); LYMPHOCYTES # (AUTO) 2.7 10^3/uL (1.0-4.0); LYMPHOCYTES % (AUTO) 65 % (12-44); MEAN CORPUSCULAR HEMOGLOBIN 33 pg (25-34); MEAN CORPUSCULAR HGB CONC 35 g/dL (32-36); MEAN PLATELET VOLUME 10.9 fL (9.0-12.2); MONOCYTES # (AUTO) 0.2 10^3/uL (0.0-1.0); MONOCYTES % (AUTO) 4 % (0-12); NEUTROPHILS # (AUTO) 1.2 10^3/uL (1.8-7.8); NEUTROPHILS % (AUTO) 28 % (42-75); PLATELET COUNT 61 10^3/uL (130-400); WHITE BLOOD COUNT 4.2 10^3/uL (4.3-11.0)
[2022-08-03 14:41] LABS: BASOPHILS % (AUTO) 0 % (0-10); EOSINOPHILS # (AUTO) 0.1 10^3/uL (0.0-0.3); EOSINOPHILS % (AUTO) 3 % (0-10); HEMOGLOBIN 8.8 g/dL (11.5-16.0)
[2022-08-03 14:43] LABS: HEMATOCRIT 25 % (35-52); LYMPHOCYTES # (AUTO) 3.3 10^3/uL (1.0-4.0); LYMPHOCYTES % (AUTO) 64 % (12-44); MEAN CORPUSCULAR HEMOGLOBIN 34 pg (25-34); MEAN CORPUSCULAR HGB CONC 35 g/dL (32-36); MEAN CORPUSCULAR VOLUME 97 fL (80-99); MONOCYTES # (AUTO) 0.6 10^3/uL (0.0-1.0); MONOCYTES % (AUTO) 12 % (0-12); NEUTROPHILS # (AUTO) 1.1 10^3/uL (1.8-7.8); NEUTROPHILS % (AUTO) 22 % (42-75); PLATELET COUNT 70 10^3/uL (130-400); WHITE BLOOD COUNT 5.2 10^3/uL (4.3-11.0)
[2022-08-10 11:49] LABS: EOSINOPHILS # (AUTO) 0.1 10^3/uL (0.0-0.3); EOSINOPHILS % (AUTO) 1 % (0-10); MEAN CORPUSCULAR VOLUME 99 fL (80-99)
[2022-08-10 11:51] LABS: BASOPHILS % (AUTO) 0 % (0-10); HEMATOCRIT 27 % (35-52); HEMOGLOBIN 9.1 g/dL (11.5-16.0); LYMPHOCYTES # (AUTO) 5.7 10^3/uL (1.0-4.0); LYMPHOCYTES % (AUTO) 61 % (12-44); MEAN CORPUSCULAR HEMOGLOBIN 34 pg (25-34); MEAN CORPUSCULAR HGB CONC 34 g/dL (32-36); MEAN PLATELET VOLUME 10.8 fL (9.0-12.2); MONOCYTES # (AUTO) 0.9 10^3/uL (0.0-1.0); MONOCYTES % (AUTO) 10 % (0-12); NEUTROPHILS # (AUTO) 2.6 10^3/uL (1.8-7.8); NEUTROPHILS % (AUTO) 28 % (42-75); PLATELET COUNT 64 10^3/uL (130-400); WHITE BLOOD COUNT 9.3 10^3/uL (4.3-11.0)
[2022-08-10 12:09] LABS: ALBUMIN 4.3 GM/DL (3.2-4.5); BILIRUBIN,TOTAL 0.3 MG/DL (0.1-1.0); CALCIUM 9.6 MG/DL (8.5-10.1); CREATININE SERUM 0.99 MG/DL (0.60-1.30); POTASSIUM 3.7 MMOL/L (3.6-5.0); TOTAL PROTEIN 6.8 GM/DL (6.4-8.2)
== END 2022-08-17 | disposition home or self-care (01) ==
LOC: ONC 11:40
PROVIDERS: ATTEND Internal Medicine Hematology & Oncology
DX: Z51.11 Encounter for antineoplastic chemotherapy (principal); Z45.2 Encounter for adjustment and management of vascular access device; C56.9 Malignant neoplasm of unspecified ovary
CPT/HCPCS: 36415; 36591; 80053; 85025; 87040; 96360; 96361; 96367; 96375; 96413; 96415; 96417

== ENCOUNTER 2022-09-07 09:51 | Outpatient (RCR) | payer BC, OTHER ==
[~2022-09-07 09:51] MED LIST changes: -CARBOPLATIN IV SCH; -D5W IV SCH; -FAMOTIDINE 20MG/2ML IV (PEPCID) IV PRN; -FOSAPREPITANT (CANCER CENTER) 150 MG in NS (IVPB) CANCER CENTER ONLY 150 ML IV SCH; -HEParin (CENTRAL IV FLUSH) 500 UNIT/5 ML SYR IV PRN; -NORMAL SALINE IV SCH; -NS IV 1000 ML (CANCER CTR) IV SCH; -NS IV SCH; -PACLITAXEL IV SCH; -PALONOSETRON HCL IV SCH; -diphenhydrAMINE 25 MG TAB (BENADRYL) PO SCH; -methylPREDNISolone 125 MG (Solu-MEDROL) VIAL IV SCH
[2022-09-07 10:06] LABS: BASOPHILS % (AUTO) 0 % (0-10); EOSINOPHILS # (AUTO) 0.2 10^3/uL (0.0-0.3); EOSINOPHILS % (AUTO) 2 % (0-10); HEMATOCRIT 31 % (35-52); HEMOGLOBIN 10.3 g/dL (11.5-16.0); LYMPHOCYTES # (AUTO) 5.5 10^3/uL (1.0-4.0); LYMPHOCYTES % (AUTO) 54 % (12-44); MEAN CORPUSCULAR HEMOGLOBIN 35 pg (25-34); MEAN CORPUSCULAR HGB CONC 33 g/dL (32-36); MEAN CORPUSCULAR VOLUME 105 fL (80-99); MEAN PLATELET VOLUME 9.6 fL (9.0-12.2); MONOCYTES % (AUTO) 10 % (0-12); NEUTROPHILS # (AUTO) 3.4 10^3/uL (1.8-7.8); NEUTROPHILS % (AUTO) 33 % (42-75); PLATELET COUNT 218 10^3/uL (130-400); WHITE BLOOD COUNT 10.2 10^3/uL (4.3-11.0)
== END 2022-09-16 | disposition home or self-care (01) ==
LOC: ONC 09:51
PROVIDERS: ATTEND Internal Medicine Hematology & Oncology
DX: C56.2 Malignant neoplasm of left ovary (principal)
CPT/HCPCS: 36415; 85025; 86304

== ENCOUNTER → 2022-09-15 | Outpatient (CLI) | payer BC ==
[~2022-09-15] MED LIST changes: +IOHEXOL 350 MG/ML 100 ML (OMNIPAQUE 350) VIAL IV ONE; +NS 100 ML (IVPB) BAG IV ONE
--- NOTE | 2022-09-15 16:58 | Diagnostic Imaging Report ---
EXAMINATION: CT chest, abdomen and pelvis with intravenous contrast. TECHNIQUE: Multiple contiguous axial images were obtained through the chest, abdomen and pelvis after the uneventful administration of intravenous contrast. All CT scans use one or more of the following dose optimizing techniques: automated exposure control, MA and/or KvP adjustment based on patient size and exam type or iterative reconstruction. HISTORY: Ovarian cancer. COMPARISON: 10/02/2021. FINDINGS: There is no edema or pneumonia. No pleural effusion. No pneumothorax. No suspicious nodule. There is a calcified granuloma in the right lower lobe. There is no axillary or supraclavicular lymphadenopathy. There is no mediastinal lymphadenopathy. A right-sided portacatheter is present. Heart size is normal. There are moderate coronary artery calcifications. No pericardial effusion. Aorta is normal in caliber. There is a small hiatal hernia. The liver is normal without focal lesion. There is no biliary ductal dilation. Gallbladder is absent. Pancreas is normal. Spleen is normal. Adrenal glands are normal. The kidneys are normal. There is no hydronephrosis. Urinary bladder is normal. Bowel is normal in caliber without obstruction or inflammation. No free fluid or air. No abdominal or pelvic lymphadenopathy. Aorta is normal in caliber without aneurysm. There is no suspicious osseus lesion. IMPRESSION: No metastatic disease in the chest, abdomen or pelvis. Dictated by: Dictated on workstation # [id number]
== END ==
LOC: RAD 13:40
PROVIDERS: ATTEND Internal Medicine Hematology & Oncology
DX: C56.9 Malignant neoplasm of unspecified ovary (principal)
CPT/HCPCS: 71260; 74177

== ENCOUNTER 2022-09-21 13:17 | Outpatient (RCR) | payer BC, OTHER ==
[~2022-09-21 13:17] MED LIST changes: -IOHEXOL 350 MG/ML 100 ML (OMNIPAQUE 350) VIAL IV ONE; -NS 100 ML (IVPB) BAG IV ONE; -ROSU20TA32 PO; +ROSU20TA73 PO
== END 2022-10-17 | disposition home or self-care (01) ==
LOC: ONC 13:17
PROVIDERS: ATTEND Internal Medicine Hematology & Oncology
DX: C56.9 Malignant neoplasm of unspecified ovary (principal)

== ENCOUNTER 2022-10-31 14:48 | Outpatient (RCR) | payer BC, OTHER ==
[2022-11-01] MEDS ORDERED: MTP25TSR PO (08:20)
[2022-11-01] MEDS ORDERED: MGX400T PO (09:50)
[2022-11-01] MEDS ORDERED: ROPI0.5T4 PO (09:50)
[2022-11-01] MEDS ORDERED: MULT-1021 PO (09:50)
[2022-11-01] MEDS ORDERED: POTA-179 PO (09:50)
[2022-11-01] MEDS ORDERED: MONT-40 PO (09:50)
[2022-11-01] MEDS ORDERED: OMEP40CA6 PO (09:50)
[2022-11-01] MEDS ORDERED: LEVO50TA6 PO (09:50)
[2022-11-01] MEDS ORDERED: ACET-2267 PO (09:50)
[2022-11-01] MEDS ORDERED: ROSU20TA73 PO (09:50)
[2022-11-01] MEDS ORDERED: SERT-414 PO (09:50)
[2022-11-01] MEDS ORDERED: METO50TA7 PO (09:50)
[2022-11-03] MEDS ORDERED: HYDR20TA PO (10:39)
[2022-11-03] MEDS ORDERED: HYDR10TA PO (10:39)
== END 2022-11-15 13:40 | disposition home or self-care (01) ==
LOC: ONC 14:48
PROVIDERS: ATTEND Internal Medicine Hematology & Oncology
DX: C56.9 Malignant neoplasm of unspecified ovary (principal)
CPT/HCPCS: 99214

== ENCOUNTER 2022-10-31 15:30 | Inpatient (IN) | payer BC ==
[~2022-10-31] VITALS: Ht 165.1 cm; Wt 60.5 kg
[2022-10-31] MEDS ORDERED: LACTATED RINGERS 1,000 ML IV STA (15:52)
[2022-10-31] MEDS ORDERED: ONDANSETRON 4 MG/2 ML (SDV) Z0FRAN ONE (16:03)
--- NOTE | 2022-10-31 16:07 | ED General ---
General Chief Complaint: Altered Mental Status Stated Complaint: AMS - N/V - BALANCE OFF Source of Information: Patient, Family, Old Records, RN/MD Exam Limitations: No Limitations History of Present Illness Date Seen by Provider: Oct 31, 2022 Time Seen by Provider: 15:35 Initial Comments 62-year-old female with past medical history of stage III ovarian cancer now finished with chemotherapy and reportedly "cancer free" coming in as a referral from the cancer center. Per the report from the oncologist, the patient has been more confused over the past several days, mild headache, went to outside facility emergency department over the weekend and had a CT of the abdomen and pelvis which was reportedly normal. She is been falling multiple times, but has not hit her head. Per the patient, headache is now better, she feels like she is fairly with it, just feels generally weak. Has not been vomiting, but is eating less and has lost a significant amount of weight. She denies any chest pain, shortness of breath, abdominal pain, focal weakness or numbness, current nausea, dysuria, or any other concerns. Allergies and Home Medications Allergies Coded Allergies: coconut (Verified Allergy, Severe, Anaphylaxis, 03/23/22) dexamethasone (Unverified Allergy, Intermediate, SWELLING, 03/23/22) Patient Home Medication List Home Medication List Reviewed: Yes Hydrocodone Bit/Acetaminophen (HYDROcodone/APAP 5 MG/325 MG TAB) 1 Tab Tab, 1 TAB PO Q8H PRN for PAIN-MODERATE (5-7) Prescribed by: JUDAH REAGAN on 03/25/22 1230 Levothyroxine Sodium (Levothyroxine Sodium) 50 Mcg Tablet, 50 MCG PO DAILY Prescribed by: MICA BUENROSTRO on 10/02/21 1057 Metoprolol Succinate (Metoprolol Succinate) 50 Mg Tab.er.24h, 50 MG PO DAILY Prescribed by: MICA BUENROSTRO on 10/02/21 1057 Montelukast Sodium (Singulair) 10 Mg Tablet, 10 MG PO DAILY PRN Prescribed by: MICA BUENROSTRO on 10/02/21 1057 Omeprazole (Omeprazole) 40 Mg Capsule.dr, 40 MG PO DAILY Prescribed by: MICA BUENROSTRO on 10/02/21 1057 Promethazine HCl (Promethazine Suppository) 25 Mg Supp.rect, 25 MG RC Q6 Prescribed by: DOUG SANTIZO on 07/05/22 2240 Ropinirole HCl (Ropinirole HCl) 0.5 Mg Tablet, 0.5 MG PO HS Prescribed by: MICA BUENROSTRO on 10/02/21 105 Rosuvastatin Calcium (Rosuvastatin Calcium) 20 Mg Tablet, 20 MG PO HS Prescribed by: MICA BUENROSTRO on 10/02/21 105 Sertraline HCl (Sertraline HCl) 100 Mg Tablet, 100 MG PO DAILY Prescribed by: MICA BUENROSTRO on 10/02/21 105 Review of Systems Review of Systems Constitutional: No fever EENTM: no symptoms reported Respiratory: no symptoms reported Cardiovascular: no symptoms reported Gastrointestinal: see HPI Genitourinary: no symptoms reported Musculoskeletal: no symptoms reported Skin: no symptoms reported Psychiatric/Neurological: See HPI Hematologic/Lymphatic: No Symptoms Reported Past Mrbirsn-Emcudg-Chctym Hx Patient Social History Tobacco Use?: Yes Tobacco type used: Cigarettes Substance use?: Yes Substance type: Marijuana Alcohol Use?: No Pt feels they are or have been: No Immunizations Up To Date First/Initial COVID19 Vaccinat: 2020 Second COVID19 Vaccination Monster: 2020 Third COVID19 Vaccination Date: 2021 Seasonal Allergies Seasonal Allergies: No Past Medical History Surgery/Hospitalization HX: HTN, HLD, GERD, THYROID OVARIAN CANCER Surgeries: Yes (ORAL SURGERY, COMPLETE HYSTERECTOMY) Gallbladder Respiratory: No Cardiac: Yes High Cholesterol, Hypertension 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 oz. [id number]; 22.00 BMI Method:Stated General Appearance: No Apparent Distress, Thin Eyes: Bilateral Eye Normal Inspection, Bilateral Eye PERRL, Bilateral Eye EOMI HEENT: PERRL/EOMI, Normal ENT Inspection, Pharynx Normal Neck: Full Range of Motion, Normal Inspection, Non Tender, Supple Respiratory: Chest Non Tender, Lungs Clear, Normal Breath Sounds, No Accessory Muscle Use, No Respiratory Distress Cardiovascular: Regular Rate, Rhythm, No Edema, Normal Peripheral Pulses Gastrointestinal: Normal Bowel Sounds, Non Tender, Soft; No Distended, No Guarding Back: Normal Inspection, No CVA Tenderness Extremity: Normal Capillary Refill, Normal Inspection, Normal Range of Motion, Non Tender, No Calf Tenderness, No Pedal Edema Neurologic/Psychiatric: Alert, Oriented x3, No Motor/Sensory Deficits, Normal Mood/Affect, registered nurse ambulatory II-XII Norm as Tested, Other (Generally weak but nothing focal, normal wympny-rr-oqkd, normal visual michelle and visual acuity) Skin: Normal Color, Warm/Dry Focused Exam Lactate Level 10/31/22 15:56: Lactic Acid Level 1.13 Lactic Acid Level Laboratory Tests Test 10/31/22 15:56 Lactic Acid Level 1.13 MMOL/L (0.50-2.00) Progress/Results/Core Measures Suspected Sepsis SIRS Temperature: Pulse: Respiratory Rate: Laboratory Tests 10/31/22 15:56: White Blood Count 14.0H Blood Pressure / Mean: 10/31/22 15:56: Lactic Acid Level 1.13 Laboratory Tests 10/31/22 15:56: Creatinine 0.94, INR Comment 1.0, Platelet Count 247, Total Bilirubin 0.5 Results/Orders Lab Results Laboratory Tests Test 10/31/22 15:56 Range/Units White Blood Count 14.0 H 4.3-11.0 10^3/uL Red Blood Count 3.97 3.80-5.11 10^6/uL Hemoglobin 13.3 11.5-16.0 g/dL Hematocrit 39 35-52 % Mean Corpuscular Volume 98 80-99 fL Mean Corpuscular Hemoglobin 34 25-34 pg Mean Corpuscular Hemoglobin Concent 34 32-36 g/dL Red Cell Distribution Width 12.1 10.0-14.5 % Platelet Count 247 130-400 10^3/uL Mean Platelet Volume 9.6 9.0-12.2 fL Immature Granulocyte % (Auto) 0 % Neutrophils (%) (Auto) 62 42-75 % Lymphocytes (%) (Auto) 26 12-44 % Monocytes (%) (Auto) 10 0-12 % Eosinophils (%) (Auto) 1 0-10 % Basophils (%) (Auto) 0 0-10 % Neutrophils # (Auto) 8.7 H 1.8-7.8 10^3/uL Lymphocytes # (Auto) 3.6 1.0-4.0 10^3/uL Monocytes # (Auto) 1.4 H 0.0-1.0 10^3/uL Eosinophils # (Auto) 0.2 0.0-0.3 10^3/uL Basophils # (Auto) 0.0 0.0-0.1 10^3/uL Immature Granulocyte # (Auto) 0.1 0.0-0.1 10^3/uL Neutrophils % (Manual) 60 % Lymphocytes % (Manual) 28 % Monocytes % (Manual) 10 % Eosinophils % (Manual) 2 % Basophils % (Manual) 0 % Band Neutrophils 0 % Blood Morphology Comment NORMAL Prothrombin Time 13.6 12.2-14.7 SEC INR Comment 1.0 0.8-1.4 Activated Partial Thromboplast Time 26 24-35 SEC Sodium Level 135 135-145 MMOL/L Potassium Level 3.2 L 3.6-5.0 MMOL/L Chloride Level 98 98-107 MMOL/L Carbon Dioxide Level 25 21-32 MMOL/L Anion Gap 12 5-14 MMOL/L Blood Urea Nitrogen 23 H 7-18 MG/DL Creatinine 0.94 0.60-1.30 MG/DL Estimat Glomerular Filtration Rate 68 BUN/Creatinine Ratio 24 Glucose Level 110 H 70-105 MG/DL Lactic Acid Level 1.13 0.50-2.00 MMOL/L Calcium Level 9.8 8.5-10.1 MG/DL Corrected Calcium 9.4 8.5-10.1 MG/DL Magnesium Level 1.9 1.6-2.4 MG/DL Total Bilirubin 0.5 0.1-1.0 MG/DL Aspartate Amino Transf (AST/SGOT) 20 5-34 U/L Alanine Aminotransferase (ALT/SGPT) 21 0-55 U/L Alkaline Phosphatase 105 40-136 U/L Troponin I < 0.028 <0.028 NG/ML Total Protein 7.3 6.4-8.2 GM/DL Albumin 4.5 3.2-4.5 GM/DL Lipase 30 8-78 U/L My Orders Orders - DUNG CARMONA MD Ct Head Wo (10/31/22 15:52) Cbc With Automated Diff (10/31/22 15:52) Comprehensive Metabolic Panel (10/31/22 15:52) Lactic Acid Analyzer (10/31/22 15:52) Lipase (10/31/22 15:52) Magnesium (10/31/22 15:52) Protime With Inr (10/31/22 15:52) Partial Thromboplastin Time (10/31/22 15:52) Ua Culture If Indicated (10/31/22 15:52) Troponin I Irwin (10/31/22 15:52) Chest 1 View, Ap/Pa Only (10/31/22 15:52) Lactated Ringers (Lr 1000 Ml Iv Solution (10/31/22 15:52) Implanted Port: Access (10/31/22 15:52) Ondansetron Injection (Zofran Injectio (10/31/22 16:03) Manual Differential (10/31/22 15:56) Medications Given in ED Current Medications Medications Dose Ordered Sig/River Route Start Time Stop Time Status Last Admin Dose Admin Ondansetron HCl 4 mg STK-MED ONCE .ROUTE 10/31/22 16:03 10/31/22 16:06 DC 10/31/22 16:08 4 MG Vital Signs/I&O Capillary Refill : Progress Note : Progress Note 62-year-old female with above history coming in as referral from the cancer center due to altered mental status and general weakness. ABCs were intact and vitals were stable on presentation. Physical exam with general weakness, but nothing focal that would be concerning for stroke. Her port was accessed and basic labs were obtained. CT head ordered and interpreted by me show no obvious bleed or large stroke. Chest x-ray ordered and interpreted by me showing no obvious infection, pneumothorax, and overall appears similar to prior. I have also reviewed the patient's CT imaging which they brought the report from which was negative for acute findings on the abdomen and pelvis. She had COVID, flu testing, and a respiratory viral panel performed there as well which was completely negative. Labs significant for mild leukocytosis, normal creatinine, slightly low potassium at 3.2, negative troponin, normal LFTs. I reassessed the patient after IV fluids, feeling slightly better, she was still unable to stand without complete assistance. I then contacted Dr. Hein who will admit the patient under observation status for now for further evaluation and management. Diagnostic Imaging Diagonstic Imaging: Xray (chest), CT (head) Comments [facility], [place] NAME: GRACIE [facility] REC#: [id number] PT STATUS: REG ER : 1960 PHYSICIAN: DUNG CARMONA MD ADMIT DATE: 10/31/22/ER Draft Date of Exam:10/31/22 CT HEAD WO PROCEDURE: CT head without contrast. TECHNIQUE: Multiple contiguous axial images were obtained through the brain without the use of intravenous contrast. Auto Exposure Controls were utilized during the CT exam to meet ALARA standards for radiation dose reduction. INDICATION: Altered mental status and weakness. Comparison is made with prior exam of 09/22/2021. FINDINGS: The ventricles and sulci are within normal limits. There is no hydrocephalus or cerebral edema. There is no midline shift or mass effect. There is no intracranial mass, hemorrhage, or extra-axial fluid collection. The visualized paranasal sinuses and mastoid air cells are clear. There are no regional areas of decreased attenuation appreciated to suggest an acute CVA. IMPRESSION: No acute intracranial abnormality. Dictated on workstation # [id number] Dict: 10/31/22 1617 Trans: 10/31/22 1618 CVB [id number] Interpreted by: MICHELLE VOGT MD Electronically signed by: NAME: [facility]ACIE [facility] REC#: [id number] PT STATUS: REG ER : 1960 PHYSICIAN: DUNG CARMONA MD ADMIT DATE: 10/31/22/ER Draft Date of Exam:10/31/22 CHEST 1 VIEW, AP/PA ONLY INDICATION: Altered mental status. Single AP view of the chest is obtained with comparison made to study of 09/22/2021. FINDINGS: Heart size and pulmonary vascularity are within normal limits. Calcified granulomas are seen centrally in the right chest. There is no evidence of pneumothorax. Right anterior chest wall port has been placed with catheter tip projecting over the lower superior vena cava. There is a small hiatal hernia. There is probable old proximal left humeral fracture. IMPRESSION: Granulomatous residua without other evidence of acute abnormality. Dictated on workstation # [id number] Dict: 10/31/22 1629 Trans: 10/31/22 1637 [id number] Interpreted by: MUMTAZ MORTON MD Electronically signed by: Departure Impression Primary Impression: Weakness Additional Impression: Ovarian cancer Qualified Codes: C56.9 - Malignant neoplasm of unspecified ovary Disposition: ADMITTED INPATIENT Condition: Stable Admissions Decision to Admit Reason: Admit from ER (General) Decision to Admit/Date: Oct 31, 2022 Time/Decision to Admit Time: 16:55 Departure-Patient Inst. Referrals: MITCH STEIN MD (PCP/Family) Primary Care Physician DUNG CARMONA MD Oct 31, 2022 16:07
[2022-10-31 16:16] LABS: BASOPHILS % (AUTO) 0 % (0-10); EOSINOPHILS # (AUTO) 0.2 10^3/uL (0.0-0.3); EOSINOPHILS % (AUTO) 1 % (0-10); HEMATOCRIT 39 % (35-52); HEMOGLOBIN 13.3 g/dL (11.5-16.0); LYMPHOCYTES # (AUTO) 3.6 10^3/uL (1.0-4.0); LYMPHOCYTES % (AUTO) 26 % (12-44); MEAN CORPUSCULAR HEMOGLOBIN 34 pg (25-34); MEAN CORPUSCULAR HGB CONC 34 g/dL (32-36); MEAN CORPUSCULAR VOLUME 98 fL (80-99); MEAN PLATELET VOLUME 9.6 fL (9.0-12.2); MONOCYTES # (AUTO) 1.4 10^3/uL (0.0-1.0); MONOCYTES % (AUTO) 10 % (0-12); NEUTROPHILS # (AUTO) 8.7 10^3/uL (1.8-7.8); NEUTROPHILS % (AUTO) 62 % (42-75); PLATELET COUNT 247 10^3/uL (130-400)
--- NOTE | 2022-10-31 16:18 | Diagnostic Imaging Report ---
PROCEDURE: CT head without contrast. TECHNIQUE: Multiple contiguous axial images were obtained through the brain without the use of intravenous contrast. Auto Exposure Controls were utilized during the CT exam to meet ALARA standards for radiation dose reduction. INDICATION: Altered mental status and weakness. Comparison is made with prior exam of 09/22/2021. FINDINGS: The ventricles and sulci are within normal limits. There is no hydrocephalus or cerebral edema. There is no midline shift or mass effect. There is no intracranial mass, hemorrhage, or extra-axial fluid collection. The visualized paranasal sinuses and mastoid air cells are clear. There are no regional areas of decreased attenuation appreciated to suggest an acute CVA. IMPRESSION: No acute intracranial abnormality. Dictated by: Dictated on workstation # [id number]
[2022-10-31 16:35] LABS: ALBUMIN 4.5 GM/DL (3.2-4.5); CHLORIDE 98 MMOL/L (98-107); POTASSIUM 3.2 MMOL/L (3.6-5.0); SODIUM 135 MMOL/L (135-145)
[2022-10-31 16:36] LABS: CALCIUM 9.8 MG/DL (8.5-10.1)
[2022-10-31 16:37] LABS: GLUCOSE 110 MG/DL (70-105); TOTAL PROTEIN 7.3 GM/DL (6.4-8.2)
--- NOTE | 2022-10-31 16:37 | Diagnostic Imaging Report ---
INDICATION: Altered mental status. Single AP view of the chest is obtained with comparison made to study of 09/22/2021. FINDINGS: Heart size and pulmonary vascularity are within normal limits. Calcified granulomas are seen centrally in the right chest. There is no evidence of pneumothorax. Right anterior chest wall port has been placed with catheter tip projecting over the lower superior vena cava. There is a small hiatal hernia. There is probable old proximal left humeral fracture. IMPRESSION: Granulomatous residua without other evidence of acute abnormality. Dictated by: Dictated on workstation # [id number]
[2022-10-31 16:38] LABS: CARBON DIOXIDE 25 MMOL/L (21-32)
[2022-10-31 16:39] LABS: BILIRUBIN,TOTAL 0.5 MG/DL (0.1-1.0)
[2022-10-31 16:41] LABS: ALKALINE PHOSPHATASE 105 U/L (40-136); CREATININE SERUM 0.94 MG/DL (0.60-1.30); GFR ESTIMATED 68; PROTHROMBIN TIME PATIENT 13.6 SEC (12.2-14.7)
[2022-10-31 16:42] LABS: BUN/CREATININE RATIO 24
[2022-10-31 16:43] LABS: BAND NEUTROPHILS 0 %; BASOPHILS % (MANUAL) 0 %; EOSINOPHILS % (MANUAL) 2 %; LYMPHOCYTES % (MANUAL) 28 %; MAGNESIUM 1.9 MG/DL (1.6-2.4); MONOCYTES % (MANUAL) 10 %; NEUTROPHILS % (MANUAL) 60 %; RBC MORPH NORMAL
[2022-10-31 16:44] LABS: ALANINE AMINOTRANSFERASE 21 U/L (0-55)
[2022-10-31 16:45] LABS: LIPASE 30 U/L (8-78)
[2022-10-31 17:52] VITALS: BP 123/73
[2022-10-31] MEDS ORDERED: ONDANSETRON 4 MG (ZOFRAN) ORAL DISSOLVE TAB PO PRN (18:15)
[2022-10-31] MEDS ORDERED: BISACODYL 10 MG SUPPOSITORY PR PRN (18:15)
[2022-10-31] MEDS ORDERED: LACTULOSE SYRUP 10GM/15ML 30ML UDC PO PRN (18:15)
[2022-10-31] MEDS ORDERED: MILK OF MAGNESIA 400 MG/5 ML 30 ML UDC PO PRN (18:15)
[2022-10-31] MEDS ORDERED: ANTACID SUSPENSION 30 ML UDC PO PRN (18:15)
[2022-10-31] MEDS ORDERED: diphenhydrAMINE INJ 50 MG/ML VIAL IVP PRN (18:15)
[2022-10-31] MEDS ORDERED: polyethylene glycoL POWDER 17 GM (MIRALAX) PACK PO PRN (18:15)
[2022-10-31] MEDS ORDERED: MELATONIN 3 MG TABLET PO PRN (18:15)
[2022-10-31] MEDS ORDERED: ONDANSETRON 4 MG/2 ML (SDV) Z0FRAN IV PRN (18:15)
[2022-10-31] MEDS ORDERED: CALCIUM CARBONATE 500 MG CHEW TABLET PO PRN (18:15)
[2022-10-31] MEDS ORDERED: diphenhydrAMINE 25 MG TABLET PO PRN (18:15)
[2022-10-31] MEDS: ENOXAPARIN 40 MG/0.4 ML SYRINGE SC SCH (19:48)
[2022-10-31] MEDS: rOPINIRole 0.25 MG TABLET PO SCH (19:49)
[2022-10-31] MEDS: SENNOSIDES 8.6 MG (SENOKOT) TAB PO SCH (19:49)
[2022-10-31] MEDS: DOCUSATE SODIUM 100 MG CAPSULE PO SCH (19:50)
[2022-10-31] MEDS: MONTELUKAST 10 MG TABLET PO SCH (19:51)
[2022-10-31] MEDS: ROSUVASTATIN 20 MG (CRESTOR) TABLET PO SCH (19:51)
[2022-10-31 20:09] VITALS: BP 106/59
[2022-10-31] MEDS ORDERED: PROMETHAZINE INJ 25 MG/ML (PHENERGAN) AMP IVP PRN (22:00)
[2022-10-31] MEDS ORDERED: LACTATED RINGERS 1,000 ML IV SCH (22:00)
[2022-10-31] MEDS ORDERED: POTASSIUM CHLORIDE 20 MEQ TABLET PO ONE (22:00)
[2022-10-31 23:00] VITALS: BP 97/57
[2022-11-01 03:17] VITALS: BP 130/56
[2022-11-01] MEDS: LEVOTHYROXINE 50 MCG TABLET PO SCH (05:28)
[2022-11-01 06:26] LABS: CREATININE SERUM 0.85 MG/DL (0.60-1.30)
[2022-11-01 07:56] VITALS: BP 110/63
[2022-11-01] MEDS: PANTOPRAZOLE 40 MG (PROTONIX) TAB PO SCH (08:15)
[2022-11-01] MEDS: SENNOSIDES 8.6 MG (SENOKOT) TAB PO SCH ×2 (08:15→19:26)
[2022-11-01] MEDS: DOCUSATE SODIUM 100 MG CAPSULE PO SCH ×2 (08:16→19:26)
[2022-11-01] MEDS: SERTRALINE 100 MG (ZOLOFT) TAB PO SCH (08:16)
[2022-11-01] MEDS ORDERED: MTP25TSR PO (08:20)
[2022-11-01] MEDS ORDERED: ACET-2267 PO (09:50)
[2022-11-01] MEDS ORDERED: LEVO50TA6 PO (09:50)
[2022-11-01] MEDS ORDERED: MGX400T PO (09:50)
[2022-11-01] MEDS ORDERED: ROPI0.5T4 PO (09:50)
[2022-11-01] MEDS ORDERED: MONT-40 PO (09:50)
[2022-11-01] MEDS ORDERED: OMEP40CA6 PO (09:50)
[2022-11-01] MEDS ORDERED: POTA-179 PO (09:50)
[2022-11-01] MEDS ORDERED: METO50TA7 PO (09:50)
[2022-11-01] MEDS ORDERED: ROSU20TA73 PO (09:50)
[2022-11-01] MEDS ORDERED: MULT-1021 PO (09:50)
[2022-11-01] MEDS ORDERED: SERT-414 PO (09:50)
[2022-11-01] MEDS ORDERED: NS IV 1000 ML 1,000 ML ONE (10:02)
--- NOTE | 2022-11-01 10:09 | Occ Therapy Progress Note ---
Therapy Progress Note OT order received, per RN hold OT for today, OT will attempt tomorrow KARIN TA OT Nov 01, 2022 10:09
[2022-11-01] MEDS ORDERED: NS IV 1000 ML 1,000 ML IV SCH (10:15)
[2022-11-01] MEDS: ACETAMINOPHEN 325 MG TABLET PO PRN (10:34)
[2022-11-01 10:41] LABS: BASOPHILS # (AUTO) 0.1 10^3/uL (0.0-0.1); BASOPHILS % (AUTO) 1 % (0-10); EOSINOPHILS # (AUTO) 0.2 10^3/uL (0.0-0.3); EOSINOPHILS % (AUTO) 2 % (0-10); HEMATOCRIT 33 % (35-52); LYMPHOCYTES # (AUTO) 4.6 10^3/uL (1.0-4.0); LYMPHOCYTES % (AUTO) 44 % (12-44); MEAN CORPUSCULAR HEMOGLOBIN 33 pg (25-34); MEAN CORPUSCULAR HGB CONC 34 g/dL (32-36); MEAN CORPUSCULAR VOLUME 99 fL (80-99); MEAN PLATELET VOLUME 9.7 fL (9.0-12.2); MONOCYTES # (AUTO) 1.1 10^3/uL (0.0-1.0); MONOCYTES % (AUTO) 10 % (0-12); NEUTROPHILS # (AUTO) 4.6 10^3/uL (1.8-7.8); NEUTROPHILS % (AUTO) 44 % (42-75); PLATELET COUNT 192 10^3/uL (130-400); WHITE BLOOD COUNT 10.6 10^3/uL (4.3-11.0)
--- NOTE | 2022-11-01 11:46 | Physical Therapy Evaluation ---
PT Evaluation-General Medical Diagnosis Admission Date Oct 31, 2022 at 17:22 Medical Diagnosis: weakness Onset Date: Oct 31, 2022 Therapy Diagnosis Therapy Diagnosis: generalized weakness/debility Height/Weight Height (Feet): 5 Height (Inches): 5.00 Weight (Pounds): 160 Precautions Precautions/Isolations: Fall Prevention, Standard Precautions Referral Physician: Angel Luis Reason for Referral: Evaluation/Treatment Medical History Pertinent Medical History: GERD, HTN, Smoking Additional Medical History Stage III ovarian cancer Current History ER secondary to AMS/weakness from cancer center/multiple falls Reviewed History: Yes Social History Home: Single Level Current Living Status: Significant Other Prior Prior Level of Function SCALE: Activities may be completed with or without assistive devices. 7-Dnsoulntnt-lhqhcao completes the activity by him/herself with no assistance from a helper. 5-Set-up or Clean-up Assistance-helper sets up or cleans up; patient completes activity. Remus assists only prior to or following the activity. 4-Supervision or Touching Assistance-helper provides verbal cues and/or touching/steadying and/or contact guard assistance as patient completes activity. Assistance may be provided throughout the activity or intermittently. 3-Partial/Moderate Assistance-helper does LESS THAN HALF the effort. Remus lifts, holds or supports trunk or limbs, but provides less than half the effort. 2-Substantial/Maximal Assistance-helper does MORE THAN HALF the effort. Remus lifts or holds trunk or limbs and provides more than half the effort. 6-Gqgpujfuj-rkcezu does ALL the effort. Patient does none of the effort to complete the activity. Or, the assistance of 2 or more helpers is required for the patient to complete the activity. If activity was not attempted, code reason: 7-Patient Refused. 9-Not Applicable-not attempted and the patient did not perform the activity before the current illness, exacerbation or injury. 10-Not Attempted due to Environmental Limitations-(lack of equipment, weather restraints, etc.). 88-Not Attempted due to Medical Conditions or Safety Concerns. Bed Mobility: 6 Transfers (B,C,W/C): 6 Gait: 6 Indoor Mobility (Ambulation): Independent Prior Devices Use: None PT Evaluation-Current Subjective Patient agrees to therapy. Objective Patient Orientation: Normal For Age ROM/Strength ROM Lower Extremities bilateral LE WFL Strength Lower Extremities 3/5 grossly bilateral LE all planes Integumentary/Posture Integumentary refer to nursing notes Bowel Incontinence: No Bladder Incontinence: No Posture WFL Neuromuscular (Tone, Coordination, Reflexes) grossly intact Sensory Vision: Functional Hearing: Functional Transfers Sit to Lying (QC): 1 Lying to Sitting/Side of Bed(Q: 4 Sit to Stand (QC): 4 patient had syncopal episode during session requiring dependent assist to attain supine Gait Mode of Locomotion: Walk Walk 10 feet (QC): 3 Walk 50 ft with 2 Turns(QC): 88 Walk 150 ft (QC): 88 Distance: 10' Gait Assistive Device: FWW Comments/Gait Description functional sequence before syncopal episode Balance Sitting Static: Normal Sitting Dynamic: Normal Standing Static: Fair Standing Dynamic: Poor Assessment/Needs Patient will benefit from skilled PT to address functional strength and mobility to improve current LOF to safely return to home at maximum LOF. Patient had episode during PT requiring deputy treasurer with vitals and EKG (refer to nursing notes for details). Rehab Potential: Guarded PT Skilled Nursing Goals Skilled Nursing Goals PT Cytologist Goals Time Frame: Nov 12, 2022 Roll Left & Right (QC): 6 Sit to Lying (QC): 6 Lying-Sitting on Side/Bed(QC): 6 Sit to Stand (QC): 6 Chair/Txp-qa-Tsshi Xfer(QC): 6 Toilet Transfer (QC): 6 Walk 10 feet (QC): 4 Walk 50ft with 2 Turns (QC): 4 Walk 150 ft (QC): 4 PT Plan Problem List Problem List: Activity Tolerance, Functional Strength, Safety, Balance, Gait, Transfer, Bed Mobility Treatment/Plan Treatment Plan: Continue Plan of Care Treatment Plan: Bed Mobility, Education, Functional Activity [place], Functional Strength, Gait, Safety, Therapeutic Exercise, Transfers Treatment Duration: Nov 12, 2022 Frequency: 6 times per week Estimated Hrs Per Day: .25 hour per day Patient and/or Family Agrees t: Yes Time Time In: 940 Time Out: 953 DATE: Nov 01, 2022 Total Billed Treatment Time: 13 Total Billed Treatment 1 visit EVMod 13 min MARCOS GREENFIELD PT Nov 01, 2022 11:46
[2022-11-01 12:03] VITALS: BP 137/66
--- NOTE | 2022-11-01 15:30 | History & Physical-Hospitalist ---
History of Present Illness HPI/Chief Complaint oRselia Henderson is a 62 year old female with PMH HTN, HLD, hypothyroidism, ovarian cancer, who presented with weakness. She reports nausea and vomiting over the past couple weeks. She has had a good appetite but can't keep anything down. She denies abdominal pain and diarrhea. She denies fevers and chills. She denies shortness of breath. She denies chest pain. She had a brief syncopal episode while working with physical therapy this morning. She was caught and transferred to her bed. She had another near syncope when nursing staff was trying to obtain orthostatic vitals. She reports that she has not had chemothera py since July and that her ovarian cancer is in remission. She follows with Dr. Ceron. Source: patient Exam Limitations: no limitations Date Seen 11/01/22 Time Seen by a Provider: 09:55 Attending Physician Moe Moncada MD PCP Admitting Physician: Johnny Groves MD Attending Physician: Johnny Groves MD Referring Physician Date of Admission Oct 31, 2022 at 17:22 Home Medications & Allergies Home Medications Reviewed patient Home Medication Reconciliation performed by pharmacy medication reconciliations respiratory support technician and/or nursing. Patients Allergies have been reviewed. Allergies Allergies Coded Allergies coconut (Verified Allergy, Severe, Anaphylaxis, 03/23/22) dexamethasone (Unverified Allergy, Intermediate, SWELLING, 03/23/22) Past Vnkxgih-Fdnyfn-Qbswcm Hx Patient Social History Tobacco Use?: Yes Tobacco type used: Cigarettes Smoking Status: Current Everyday Smoker Use of E-Cig and/or Vaping dev: No Substance use?: Yes Substance type: Marijuana Substance frequency: Couple times a week Alcohol Use?: No Pt feels they are or have been: No Immunizations Up To Date Date of Influenza Vaccine: Dec 21, 2021 First/Initial COVID19 Vaccinat: 2020 Second COVID19 Vaccination Monster: 2020 Tetanus Booster (TDap): Less Than 5 Years Seasonal Allergies Seasonal Allergies: No Current Status status: No status: No Advance Directives: No Communicates: Verbally Primary Language: Salvadorean Preferred Spoken Language: Salvadorean Is interpretation needed?: No Sensory deficits: Vision impairment Implanted or Applied Medical D: Port-a-cath Past Medical History Surgeries: Gallbladder High Cholesterol, Hypertension 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 Hypothyroidsim Cataract, Glaucoma Ovarian What Type of Treatment Did You: Surgical Intervention Blood Disorders: No Family Medical History No Pertinent Family Hx SOCIAL HISTORY: SMOKES 1 PPD ETOH--USED TO DRINK MODERATE TO HEAVILY--NONE FOR A FEW YEARS THC ON REGULAR BASIS, NONE FOR 3 WEEKS Review of Systems Constitutional: weakness Respiratory: no symptoms reported Cardiovascular: no symptoms reported Gastrointestinal: nausea, vomiting Physical Exam Physical Exam Vital Signs Vital Signs - First Documented 10/31/22 17:52 Temp 35.6 Pulse 84 Resp 16 B/P (MAP) 123/73 (90) Pulse Ox 96 O2 Delivery Room Air Capillary Refill : Height, Weight, BMI Height: 5'5.00" Weight: 160lbs. oz. [id number]; 22.19 BMI Method:Stated General Appearance: No Apparent Distress, Chronically ill HEENT: PERRL/EOMI, Other (dry mucous membranes) Neck: Normal Inspection, Supple Respiratory: Lungs Clear, Normal Breath Sounds, No Respiratory Distress Cardiovascular: Regular Rate, Rhythm, No Edema, No Murmur Gastrointestinal: Normal Bowel Sounds, Non Tender, Soft Extremity: Normal Inspection, No Pedal Edema Neurologic/Psychiatric: Alert, Normal Mood/Affect, Motor Weakness Skin: Normal Color, Other (decreased skin turgor) Results Results/Procedures Labs Laboratory Tests 10/31/22 15:56 11/01/22 06:05 11/01/22 10:30 Patient resulted labs reviewed. Imaging: Reviewed Imaging Report Assessment/Plan Admission Diagnosis Syncope due to orthostatic hypotension Admission Status: Inpatient Order (span 2 midnights) Reason for Inpatient Admission: IV fluids Assessment and Plan Syncope Orthostatic hypotension Dehydration Debility IV fluids PT/OT HTN Hold Metoprolol Ovarian cancer HLD Hypothyoridism Continue home meds as able DVT prohylaxis: Lovenox Diagnosis/Problems Diagnosis/Problems (1) Syncope due to orthostatic hypotension Status: Acute (2) Dehydration Status: Acute (3) Weakness Status: Acute (4) Debility Status: Acute (5) Ovarian cancer Status: Chronic Qualifiers: Laterality: unspecified laterality Qualified Codes: C56.9 - Malignant neoplasm of unspecified ovary JOHNNY GROVES MD Nov 01, 2022 15:30
[2022-11-01 15:32] VITALS: BP 105/61
[2022-11-01] MEDS: ENOXAPARIN 40 MG/0.4 ML SYRINGE SC SCH (18:30)
[2022-11-01] MEDS: rOPINIRole 0.25 MG TABLET PO SCH (19:26)
[2022-11-01] MEDS: MONTELUKAST 10 MG TABLET PO SCH (19:26)
[2022-11-01] MEDS: ROSUVASTATIN 20 MG (CRESTOR) TABLET PO SCH (19:26)
[2022-11-01 19:41] VITALS: BP 115/65
[2022-11-01 23:45] VITALS: BP 195/97
[2022-11-02] VITALS (9 sets, daily range): BP systolic 88–212; BP diastolic 55–107
[2022-11-02] MEDS ORDERED: amLODIPine 5 MG TABLET PO ONE (05:00)
[2022-11-02] MEDS ORDERED: cloNIDine 0.1 MG TABLET PO PRN (05:00)
[2022-11-02] MEDS: LEVOTHYROXINE 50 MCG TABLET PO SCH (05:46)
[2022-11-02 05:58] LABS: BASOPHILS % (AUTO) 0 % (0-10); EOSINOPHILS % (AUTO) 0 % (0-10); HEMATOCRIT 40 % (35-52); HEMOGLOBIN 13.6 g/dL (11.5-16.0); LYMPHOCYTES % (AUTO) 22 % (12-44); MEAN CORPUSCULAR HEMOGLOBIN 34 pg (25-34); MEAN CORPUSCULAR HGB CONC 34 g/dL (32-36); MEAN CORPUSCULAR VOLUME 98 fL (80-99); MEAN PLATELET VOLUME 9.5 fL (9.0-12.2); MONOCYTES # (AUTO) 1.1 10^3/uL (0.0-1.0); MONOCYTES % (AUTO) 8 % (0-12); NEUTROPHILS # (AUTO) 9.5 10^3/uL (1.8-7.8); NEUTROPHILS % (AUTO) 69 % (42-75); PLATELET COUNT 253 10^3/uL (130-400); WHITE BLOOD COUNT 13.7 10^3/uL (4.3-11.0)
[2022-11-02 06:16] LABS: ALBUMIN 4.5 GM/DL (3.2-4.5)
[2022-11-02 06:17] LABS: POTASSIUM 3.8 MMOL/L (3.6-5.0)
[2022-11-02 06:18] LABS: CALCIUM 9.7 MG/DL (8.5-10.1)
[2022-11-02 06:19] LABS: TOTAL PROTEIN 7.2 GM/DL (6.4-8.2)
[2022-11-02 06:21] LABS: BILIRUBIN,TOTAL 0.3 MG/DL (0.1-1.0)
[2022-11-02 06:23] LABS: CREATININE SERUM 0.89 MG/DL (0.60-1.30)
[2022-11-02] MEDS: SENNOSIDES 8.6 MG (SENOKOT) TAB PO SCH ×2 (08:42→19:37)
[2022-11-02] MEDS: SERTRALINE 100 MG (ZOLOFT) TAB PO SCH (08:42)
[2022-11-02] MEDS: PANTOPRAZOLE 40 MG (PROTONIX) TAB PO SCH (08:42)
[2022-11-02] MEDS: DOCUSATE SODIUM 100 MG CAPSULE PO SCH ×2 (08:43→19:37)
[2022-11-02] MEDS ORDERED: hydrALAZINE INJECTION 20 MG/ML VIAL IV PRN (08:45)
[2022-11-02] MEDS ORDERED: amLODIPine 5 MG TABLET PO SCH (09:00)
--- NOTE | 2022-11-02 10:04 | Occ Therapy Progress Note ---
Therapy Progress Note OT communicated with MIRNA GAMA. RN request hold OT this morning until able to discuss BPs w/ DR. OT will monitor. KARIN TA OT Nov 02, 2022 10:03
--- NOTE | 2022-11-02 10:34 | Physical Therapy Progress Note ---
Therapy Progress Note PT communicated with RNMIRNA. RN request hold PT this morning until able to discuss BPs w/ DR. PT will monitor. APOORVA SCHROEDER PT Nov 02, 2022 10:34
[2022-11-02] MEDS ORDERED: NS IV 1000 ML 1,000 ML IV SCH (10:45)
[2022-11-02] MEDS: NS IV 1000 ML 1,000 ML IV SCH ×3 (11:17→20:26)
--- NOTE | 2022-11-02 13:20 | Progress Note - Hospitalist ---
Subjective HPI/CC On Admission Date Seen by Provider: Nov 02, 2022 Time Seen by Provider: 10:40 Roselia Henderson is a 62 year old female with PMH HTN, HLD, hypothyroidism, ovarian cancer, who presented with weakness. She reports nausea and vomiting over the past couple weeks. She has had a good appetite but can't keep anything down. She denies abdominal pain and diarrhea. She denies fevers and chills. She denies shortness of breath. She denies chest pain. She had a brief syncopal episode while working with physical therapy this morning. She was caught and transferred to her bed. She had another near syncope when nursing staff was trying to obtain orthostatic vitals. She reports that she has not had chemotherapy since July and that her ovarian cancer is in remission. She follows with Dr. Ceron. Subjective/Events-last exam She is feeling weak. She had a near syncopal episode again today. She does not have much of an appetite. Focused Exam Lactate Level 10/31/22 15:56: Lactic Acid Level 1.13 Objective Exam Vital Signs Vital Signs Date Time Temp Pulse Resp B/P (MAP) Pulse Ox O2 Delivery O2 Flow Rate FiO2 11/02/22 13:14 77 91/55 (67) 11/02/22 11:33 36.5 18 95 Room Air Capillary Refill : General Appearance: No Apparent Distress, WD/WN Respiratory: Lungs Clear, No Respiratory Distress Cardiovascular: Regular Rate, Rhythm, No Murmur Gastrointestinal: Normal Bowel Sounds, Soft Extremity: Normal Inspection, No Pedal Edema Neurologic/Psychiatric: Alert, Motor Weakness Skin: Warm/Dry, Other (decreased skin turgor) Results/Procedures Lab Laboratory Tests 11/02/22 05:50 Patient resulted labs reviewed. Imaging: Reviewed Imaging Report Assessment/Plan Assessment and Plan Assess & Plan/Chief Complaint Syncope Orthostatic hypotension Dehydration Debility IV fluids PT/OT HTN urgency Labile blood pressure Metoprolol resumved Started on Amlodipine Subsequently blood pressure dropped, near syncopal episode Check cortisol level to rule out adrenal insufficiency BP meds as needed Ovarian cancer HLD Hypothyoridism Continue home meds as able DVT prohylaxis: Lovenox Diagnosis/Problems Diagnosis/Problems (1) Syncope due to orthostatic hypotension Status: Acute (2) Dehydration Status: Acute (3) Weakness Status: Acute (4) Debility Status: Acute (5) Ovarian cancer Status: Chronic Qualifiers: Laterality: unspecified laterality Qualified Codes: C56.9 - Malignant neoplasm of unspecified ovary (6) Hypertensive urgency (7) Labile blood pressure Status: Acute JOHNNY GROVES MD Nov 02, 2022 13:20
[2022-11-02] MEDS: HYDROCORTISONE INJECTION 100 MG/2 ML VIAL IV SCH ×2 (18:03→22:00)
[2022-11-02] MEDS: ENOXAPARIN 40 MG/0.4 ML SYRINGE SC SCH (18:04)
[2022-11-02] MEDS: ACETAMINOPHEN 325 MG TABLET PO PRN (18:09)
[2022-11-02] MEDS: NICOTINE 21 MG PATCH TD SCH (19:35)
[2022-11-02] MEDS: MONTELUKAST 10 MG TABLET PO SCH (19:37)
[2022-11-02] MEDS: ROSUVASTATIN 20 MG (CRESTOR) TABLET PO SCH (19:37)
[2022-11-02] MEDS: rOPINIRole 0.25 MG TABLET PO SCH (19:38)
[2022-11-02] MEDS ORDERED: HYDROCORTISONE INJECTION 100 MG/2 ML VIAL IV SCH (22:00)
[2022-11-03 04:26] VITALS: BP 111/61
[2022-11-03] MEDS: NS IV 1000 ML 1,000 ML IV SCH (04:26)
[2022-11-03] MEDS: ACETAMINOPHEN 325 MG TABLET PO PRN (04:33)
[2022-11-03] MEDS: HYDROCORTISONE INJECTION 100 MG/2 ML VIAL IV SCH (05:46)
[2022-11-03] MEDS: LEVOTHYROXINE 50 MCG TABLET PO SCH (05:47)
[2022-11-03 08:00] VITALS: BP 117/69
[2022-11-03] MEDS: SERTRALINE 100 MG (ZOLOFT) TAB PO SCH (08:21)
[2022-11-03] MEDS: SENNOSIDES 8.6 MG (SENOKOT) TAB PO SCH (08:22)
[2022-11-03] MEDS: DOCUSATE SODIUM 100 MG CAPSULE PO SCH (08:24)
[2022-11-03] MEDS: PANTOPRAZOLE 40 MG (PROTONIX) TAB PO SCH (08:24)
[2022-11-03] MEDS: NICOTINE 21 MG PATCH TD SCH (08:24)
[2022-11-03] MEDS ORDERED: NICOTINE PATCH REMOVAL TP SCH (08:59)
[2022-11-03] MEDS ORDERED: HYDROCORTISONE 20 MG TABLET PO SCH (09:00)
[2022-11-03] MEDS ORDERED: HYDR10TA PO (10:39)
[2022-11-03] MEDS ORDERED: HYDR20TA PO (10:39)
[2022-11-03 11:05] VITALS: BP 117/69
[2022-11-03 11:28] VITALS: BP 114/67
--- NOTE | 2022-11-03 11:37 | Physical Therapy Daily Note ---
PT Daily Note-Current Subjective Patient reports she is feeling good today and wants to go home. Pain Section J - Health Conditions 1. Rarely or not at all 2. Occasionally 3. Frequently 4. Almost constantly 8. Unable to answer Pain Effect on Sleep: 1 Pain Interference with Therapy: 1 Pain Interference w/Day-to-Day: 1 Transfers SCALE: Activities may be completed with or without assistive devices. 7-Tgkdczpmkz-banmsnt completes the activity by him/herself with no assistance from a helper. 5-Set-up or Clean-up Assistance-helper sets up or cleans up; patient completes activity. [place] assists only prior to or following the activity. 4-Supervision or Touching Assistance-helper provides verbal cues and/or touching/steadying and/or contact guard assistance as patient completes activity. Assistance may be provided throughout the activity or intermittently. 3-Partial/Moderate Assistance-helper does LESS THAN HALF the effort. [place] lifts, holds or supports trunk or limbs, but provides less than half the effort. 2-Substantial/Maximal Assistance-helper does MORE THAN HALF the effort. [place] lifts or holds trunk or limbs and provides more than half the effort. 3-Kwstsszxk-pbiwqm does ALL the effort. Patient does none of the effort to complete the activity. Or, the assistance of 2 or more helpers is required for the patient to complete the activity. If activity was not attempted, code reason: 7-Patient Refused. 9-Not Applicable-not attempted and the patient did not perform the activity before the current illness, exacerbation or injury. 10-Not Attempted due to Environmental Limitations-(lack of equipment, weather restraints, etc.). 88-Not Attempted due to Medical Conditions or Safety Concerns. Lying to Sitting/Side of Bed(Q: 6 Sit to Stand (QC): 4 Chair/Mth-in-Vstkb Xfer(QC): 4 Gait Training Distance: 350' Walk 10 feet (QC): 4 Walk 50 ft with 2 Turns(QC): 4 Walk 150 ft (QC): 4 Gait Assistive Device: FWW SBA to mod I with all mobility Stair Training Stair Training: Handrails/: 2 handrails #of Steps: 4 1 Step (curb) (QC): 4 4 Steps (QC): 4 Stairs: Pattern: Reciprocal Assessment Patient much improved on this date and desires to return to home soon. Physicia n notified. Patient performs all gross motor skills safely. PT Mcfp Goals Mcfp Goals PT Gis Professor Goals Time Frame: Nov 12, 2022 Roll Left & Right (QC): 6 Sit to Lying (QC): 6 Lying-Sitting on Side/Bed(QC): 6 Sit to Stand (QC): 6 Chair/Sgp-hy-Apelg Xfer(QC): 6 Toilet Transfer (QC): 6 Walk 10 feet (QC): 4 Walk 50ft with 2 Turns (QC): 4 Walk 150 ft (QC): 4 PT Plan Treatment/Plan Treatment Plan: Continue Plan of Care Treatment Plan: Bed Mobility, Education, Functional Activity [place], Functional Strength, Gait, Safety, Therapeutic Exercise, Transfers Treatment Duration: Nov 12, 2022 Frequency: 6 times per week Estimated Hrs Per Day: .25 hour per day Patient and/or Family Agrees t: Yes Time Time In: 1007 Time Out: 1022 DATE: Nov 03, 2022 Total Billed Treatment Time: 15 Total Billed Treatment 1 visit FA 15 min MARCOS GREENFIELD PT Nov 03, 2022 11:36
--- NOTE | 2022-11-03 11:43 | Occupational Therapy Eval ---
OT Evaluation-General/PLF Medical Diagnosis Admission Date Nov 01, 2022 at 15:21 Medical Diagnosis: weakness Onset Date: Oct 31, 2022 Therapy Diagnosis Therapy Diagnosis: weakness Height/Weight Height (Feet): 5 Height (Inches): 5.00 Weight (Pounds): 160 Precautions Precautions/Isolations: Standard Precautions Referral Physician: Angel Luis Jesus Reason: Self Care, Evaluation/Treatment Medical History Pertinent Medical History: GERD, HTN, Smoking Social History Home: Single Level Current Living Status: Significant Other ADL-Prior Level of Function SCALE: Activities may be completed with or without assistive devices. 3-Qgugnnqack-gyklodh completes the activity by him/herself with no assistance from a helper. 5-Set-up or Clean-up Assistance-helper sets up or cleans up; patient completes activity. [place] assists only prior to or following the activity. 4-Supervision or Touching Assistance-helper provides verbal cues and/or touching/steadying and/or contact guard assistance as patient completes activity. Assistance may be provided throughout the activity or intermittently. 3-Partial/Moderate Assistance-helper does LESS THAN HALF the effort. [place] lifts, holds or supports trunk or limbs, but provides less than half the effort. 2-Substantial/Maximal Assistance-helper does MORE THAN HALF the effort. [place] lifts or holds trunk or limbs and provides more than half the effort. 5-Muwixndpg-srccps does ALL the effort. Patient does none of the effort to complete the activity. Or, the assistance of 2 or more helpers is required for the patient to complete the activity. If activity was not attempted, code reason: 7-Patient Refused. 9-Not Applicable-not attempted and the patient did not perform the activity before the current illness, exacerbation or injury. 10-Not Attempted due to Environmental Limitations-(lack of equipment, weather restraints, etc.). 88-Not Attempted due to Medical Conditions or Safety Concerns. Self Care: Independent Functional Cognition: Independent Drive Self: Yes OT Current Status Subjective Pleasantly eager for therapy and ready to go home Mental Status/Objective Patient Orientation: Person, Place, Time, Situation Attachments: IV Current Upper Extremity ROM BUE ROM WFLS Upper Extremity Coordination INTACT Upper Extremity Strength -4/5 ADL-Treatment Eating (QC): 6 Oral Hygiene (QC): 5 (standing at sink w/ FWW and IV pole) Shower/Bathe Self (QC): 7 Upper Body Dressing (QC): 5 Lower Body Dressing (QC): 5 On/Off Footwear (QC): 6 Toileting Hygiene (QC): 5 Education OT Patient Education: Correct positioning, Modified ADL techniques, Progress t oward Goal/Update tx plan, Purpose of tx/functional activities, Reviewed precautions, Rehab process, Safety issues, Transfer techniques Teaching Recipient: Patient Teaching Methods: Demonstration, Discussion Response to Teaching: Return Demonstration OT Machine Operator Slitter Technician Goals [facility] Goals 1=Demonstrate adherence to instructed precautions during ADL tasks. 2=Patient will verbalize/demonstrate understanding of assistive devices/modifications for ADL. 3=Patient will improve strength/tolerance for activity to enable patient to perform ADL's. OT Education/Plan Problem List/Assessment Assessment: No Skilled OT Needs ID'd Discharge Recommendations Plan/Recommendations: Discontinue OT Therapy Discharge Recommendati: Home & Family Treatment Plan/Plan of Care Patient would benefit from OT for education, treatment and training to promote independence in ADL's, mobility, safety and/or upper extremity function for ADL's. Plan of Care: OTHER (EVAL ONLY) Treatment Duration: Nov 03, 2022 Frequency: 1 time per week Estimated Hrs Per Day: .25 hour per day Agreement: Yes Rehab Potential: Guarded Time Start Time: 10:10 Stop Time: 10:24 DATE: Nov 03, 2022 Total Time Billed (hr/min): 14 Billed Treatment Time EVL 14 min KARIN TA OT Nov 03, 2022 11:43
[2022-11-03] MEDS ORDERED: HYDROCORTISONE 20 MG TABLET PO ONE (15:00)
--- NOTE | 2022-11-03 16:26 | Discharge Summary ---
Discharge Summary Hospital Course Problems/Dx: (1) Syncope due to orthostatic hypotension Status: Acute (2) Dehydration Status: Acute (3) Weakness Status: Acute (4) Debility Status: Acute (5) Ovarian cancer Status: Chronic Qualifiers: Qualified Codes: C56.9 - Malignant neoplasm of unspecified ovary (6) Hypertensive urgency (7) Labile blood pressure Status: Acute Hospital Course Date of Admission: Nov 01, 2022 at 15:21 Admission Diagnosis : Syncope due to orthostatic hypotension Family Physician/Provider: Mitch Moncada MD Date of Discharge: 11/03/22 Discharge Diagnosis: Adrenal insufficiency, HTN urgency, syncope due to orthostatic hypotension Hospital Course: Roselia Henderson is a 62 year old female with PMH ovarian cancer s/p chemotherapy currently in remission who was admitted with weakness. She had also been having nausea and vomiting. She had a syncopal episode while working with therapy. She was found to be severely orthostatic. She was given IV fluids. Her orthostasis persisted. She had issues with labile blood pressures and confusion. Her symptoms were concerning for adrenal insufficiency. She was started on stress dose steroids and her symptoms resolved. A cortisol level did not confirm the diagnosis. She was set up for an ACTH stimulation test as an outpatient. She was started on Hydrocortisone. She should follow up with her PCP and Oncology. She was discharged home in stable condition. Labs and Pending Lab Test: Laboratory Tests 11/02/22 18:25: Adrenocorticotropic Hormone [Pending] Home Meds Active Cortef (Hydrocortisone) 20 Mg Tablet 20 Mg PO DAILY 30 Days TAKE 20 MG EVERY MORNING (~9AM) AND 10 MG EVERY AFTERNOON (~3PM) Cortef (Hydrocortisone) 10 Mg Tablet 10 Mg PO UD 30 Days TAKE 20 MG EVERY MORNING (~9AM) AND 10 MG EVERY AFTERNOON (~3PM) Reported Tylenol Extra Strength (Acetaminophen) 500 Mg Tablet 500-1,000 Mg PO Q8H PRN Centrum Silver Women Tablet (Multivits-Min/Iron/FA/Lutein) 8 Mg Iron-400 Mcg-300 Mcg Tablet 1 Each PO DAILY Potassium Chloride 20 Meq Tab.er.prt 20 Meq PO BID PRN Rosuvastatin Calcium 20 Mg Tablet 20 Mg PO DAILY Sertraline HCl 100 Mg Tablet 150 Mg PO DAILY TAKES 1 & (100MG) TABS Montelukast Sodium 10 Mg Tablet 10 Mg PO HS Ropinirole HCl 0.5 Mg Tablet 1 Mg PO HS TAKES 2 (0.5MG) TABS Metoprolol Succinate 50 Mg Tab.er.24h 25 Mg PO DAILY TAKES OF A 50MG TAB Levothyroxine Sodium 50 Mcg Tablet 50 Mcg PO DAILY Magnesium Oxide 400 Mg (241.3 Mg Magnesium) Tablet 400 Mg PO DAILY Omeprazole 40 Mg Capsule.dr 40 Mg PO DAILY Assessment/Pt Instructions See instructions Discharge Planning: >30 minutes discharge planning Discharge Instructions Discharge Diet: No Restrictions Activity as Tolerated: Yes Discharge Physical Examination Vital Signs Vital Signs Date Time Temp Pulse Resp B/P (MAP) Pulse Ox O2 Delivery O2 Flow Rate FiO2 11/03/22 11:28 37.0 78 18 114/67 (83) 96 Room Air General Appearance: No Apparent Distress, WD/WN Respiratory: Lungs Clear, No Respiratory Distress Cardiovascular: Regular Rate, Rhythm, No Murmur Gastrointestinal: Normal Bowel Sounds, Soft Extremity: Normal Inspection, No Pedal Edema Skin: Normal Color, Warm/Dry Neurologic/Psychiatric: Alert, No Motor/Sensory Deficits Allergies: Coded Allergies: coconut (Verified Allergy, Severe, Anaphylaxis, 03/23/22) dexamethasone (Unverified Allergy, Intermediate, SWELLING, 03/23/22) Copy Copies To 1: MITCH MONCADA MD Copies To 2: ELIZABETH PERKINS MD Discharge Summary Date of Admission Nov 01, 2022 at 15:21 Date of Discharge Nov 03, 2022 at 13:30 Admission Diagnosis Syncope due to orthostatic hypotension Discharge Diagnosis Syncope Orthostatic hypotension Dehydration Debility IV fluids PT/OT HTN urgency Labile blood pressure Metoprolol resumved Started on Amlodipine Subsequently blood pressure dropped, near syncopal episode Check cortisol level to rule out adrenal insufficiency BP meds as needed Ovarian cancer HLD Hypothyoridism Continue home meds as able DVT prohylaxis: Lovenox (1) Syncope due to orthostatic hypotension Status: Acute (2) Dehydration Status: Acute (3) Weakness Status: Acute (4) Debility Status: Acute (5) Ovarian cancer Status: Chronic Qualifiers: Qualified Codes: C56.9 - Malignant neoplasm of unspecified ovary (6) Hypertensive urgency (7) Labile blood pressure Status: Acute JOHNNY GROVES MD Nov 03, 2022 16:25
== END 2022-11-03 13:30 | disposition home or self-care (01) | DRG 645 ==
LOC: EDUNIT# 15:30 → ER 15:31 → 4TH 17:22 → OBSVTOIN 11-01 15:21
PROVIDERS: ADMIT Internal Medicine; ATTEND Internal Medicine
DX: E27.40 Unspecified adrenocortical insufficiency (principal); I95.1 Orthostatic hypotension; E86.0 Dehydration; I16.0 Hypertensive urgency; I10 Essential (primary) hypertension; Z91.81 History of falling; F17.210 Nicotine dependence, cigarettes, uncomplicated; E78.00 Pure hypercholesterolemia, unspecified; K21.9 Gastro-esophageal reflux disease without esophagitis; E03.9 Hypothyroidism, unspecified; Z85.43 Personal history of malignant neoplasm of ovary; Z79.891 Long term (current) use of opiate analgesic; Z79.899 Other long term (current) drug therapy; Z91.09 Other allergy status, other than to drugs and biological substances
CPT/HCPCS: 36415; 36556; 70450; 71045; 80048; 80053; 82024; 82533; 82947; 83605; 83690; 83735; 84484; 85007; 85025; 85027; 85610; 85730; 93005; G0378

== ENCOUNTER 2022-11-15 13:45 | Outpatient (RCR) | payer BC, OTHER ==
[~2022-11-15 13:45] MED LIST changes: +ACET-2267 PO; +HYDR10TA PO; +HYDR20TA PO; +MGX400T PO; +MONT-40 PO; +MTP25TSR PO; +MULT-1021 PO; +POTA-179 PO; +ROPI0.5T37 PO; -ROPI0.5T4 PO
== END 2022-11-17 | disposition home or self-care (01) ==
LOC: ONC 13:45
PROVIDERS: ATTEND Internal Medicine Hematology & Oncology
DX: C56.9 Malignant neoplasm of unspecified ovary (principal)
CPT/HCPCS: 99214

== ENCOUNTER 2022-12-27 13:54 | Outpatient (RCR) | payer BC, OTHER ==
[2022-12-27 14:17] LABS: BASOPHILS # (AUTO) 0.1 10^3/uL (0.0-0.1); BASOPHILS % (AUTO) 0 % (0-10); EOSINOPHILS # (AUTO) 0.2 10^3/uL (0.0-0.3); EOSINOPHILS % (AUTO) 2 % (0-10); HEMATOCRIT 39 % (35-52); HEMOGLOBIN 12.7 g/dL (11.5-16.0); LYMPHOCYTES # (AUTO) 5.8 10^3/uL (1.0-4.0); LYMPHOCYTES % (AUTO) 47 % (12-44); MEAN CORPUSCULAR HEMOGLOBIN 32 pg (25-34); MEAN CORPUSCULAR HGB CONC 33 g/dL (32-36); MEAN CORPUSCULAR VOLUME 99 fL (80-99); MEAN PLATELET VOLUME 9.3 fL (9.0-12.2); MONOCYTES # (AUTO) 0.9 10^3/uL (0.0-1.0); MONOCYTES % (AUTO) 7 % (0-12); NEUTROPHILS # (AUTO) 5.2 10^3/uL (1.8-7.8); NEUTROPHILS % (AUTO) 43 % (42-75); PLATELET COUNT 240 10^3/uL (130-400); WHITE BLOOD COUNT 12.2 10^3/uL (4.3-11.0)
[2022-12-27 14:37] LABS: ALBUMIN 4.1 GM/DL (3.2-4.5); BILIRUBIN,TOTAL 0.3 MG/DL (0.1-1.0); CALCIUM 9.1 MG/DL (8.5-10.1); CREATININE SERUM 0.86 MG/DL (0.60-1.30); POTASSIUM 3.6 MMOL/L (3.6-5.0); TOTAL PROTEIN 6.5 GM/DL (6.4-8.2)
== END 2023-01-17 | disposition home or self-care (01) ==
LOC: ONC 13:54
PROVIDERS: ATTEND Internal Medicine Hematology & Oncology
DX: C56.9 Malignant neoplasm of unspecified ovary (principal)
CPT/HCPCS: 80053; 85025; 86304; G0463; 36415; 99214